=== PATIENT | female | born 1975 | race African-American/Black ===

== ENCOUNTER 2020-09-01 10:31 | Emergency (ER) | payer OTHER, SELFPAY ==
--- NOTE | ~2020-09-01 | CT_ITS ---
EXAMINATION: CT brain wo con DATE: 09/01/2020 11:47 INDICATION: Intractable headache. TECHNIQUE: Computed tomography (CT) of the head was performed without intravenous contrast. The mA wa s adjusted according to patient size. Iterative reconstruction technique was employed. The dose-lengt h product was 605.33 mGy-cm. COMPARISON: Head CT 07/25/2016 FINDINGS: There is no intracranial hemorrhage, acute infarction, or abnormal intracranial mass lesion . The ventricles are normal in size. The mastoid air cells are normal. The sphenoid sinus is hypoplas tic and partially opacified, which is chronic. IMPRESSION: 1. Normal brain. Reviewed, dictated and finalized at location [facility]. IMPRESSION: 1. Normal brain.
[2020-09-01 10:42] VITALS: BP 143/85; PULSE 92; RESP 14; TEMP 36.1; O2SAT 98
--- NOTE | 2020-09-01 10:47 | ED.HA ---
HPI - Headache General Chief Complaint: Headache Stated Complaint: Headache, earache Time Seen by Provider: 09/01/20 10:47 Source: patient Mode of arrival: ambulatory Limitations: no limitations History of Present Illness HPI Narrative: Patient is a 45-year-old female with a history of vertigo, cluster headache, migraine headache who presents for evaluation of intractable headache. Patient reports she has had right and left-sided cluster headaches over the past 48 to 72 hours, reports continued headache on the left forehead with radiation into the left ear. No tinnitus, no ear discharge. Patient was having some ear pain yesterday. She denies any chest pain, abdominal pain, does report some nausea without vomiting. No numbness or weakness. In the past patient has been on triptans without much improvement in her symptoms. She does take prophylactic magnesium but ran out of that 10 days ago and is wondering if that possibly has exacerbated her symptoms. She denies fever, chills, neck pain or neck rigidity. No rashes. No numbness, no weakness. In the past, patient was receiving Botox injections for severe, intractable migraines, followed with neurology at [facility]. Related Data Allergies Allergy/AdvReac Type Severity Reaction Status Date / Time lubricant Allergy Unknown BURNING Verified 09/01/20 10:31 SENSATION Review of Systems Review of Systems: Narrative: CONSTITUTIONAL: Denies fever, chills, or sweats. EYES: Denies visual changes, reports sensitivity to light ENT: Denies rhinorrhea, congestion, sore throat, or otalgia. CARDIOVASCULAR: Denies chest pain, palpitations, or edema. RESPIRATORY: Denies cough or dyspnea. GASTROINTESTINAL: Denies abdominal pain, reports nausea without vomiting GENITOURINARY: Denies dysuria or hematuria. SKIN: Denies rash or itching. MUSCULOSKELETAL: Denies back pain, joint pain, or myalgia. NEUROLOGIC: Reports headache, denies numbness, or weakness. PSYCHIATRIC: Denies anxiety or depression. [facility] Past Medical History Medical History (Updated 09/01/20 @ 13:10 by Yarely Cohen MD) Cluster headache Migraine headache Vertigo Surgical History Surgical History (Updated 09/01/20 @ 11:14 by Yarely Cohen MD) No pertinent past surgical history Social History Social History (Updated 09/01/20 @ 11:14 by Yarely Cohen MD) Smoking status: Never smoker Alcohol intake: never Substance use: never Gender identity (if verbalized by the patient): Female Exam Narrative: Exam Narrative: GENERAL: Awake, alert, conversant HEAD: Normocephalic, atraumatic. EYES: PERRLA and EOMI. ENT: Nares clear, no rhinorrhea or epistaxis. Mucous membranes moist. NECK: Supple. CHEST: No respiratory distress, breathing even and non labored HEART: Regular rate, sinus rhythm ABDOMEN:Non distended, non tender EXTREMITIES: Normal range of motion. No edema. SKIN: Warm, dry, no rash. NEURO:No focal deficits. Alert and oriented x3. Finger to nose intact bilaterally. EOMs intact without nystagmus. No facial droop/asymmetry noted bilaterally. Grimace intact. Intact sensation in face. Hearing intact bilaterally. Shoulder shrug intact. Strength 5/5 bilateral upper extremities. Strength 5/5 bilateral lower extremities. Reflexes 2+ patellar. Heel to fleming intact bilaterally. Ambulatory with a narrow based steady gait. Course Vital Signs Vital signs: Vital Signs Temperature 36.1 C L 09/01/20 10:42 Pulse Rate 92 09/01/20 10:42 Respiratory Rate 14 09/01/20 10:42 Blood Pressure 143/85 H 09/01/20 10:42 Pulse Oximetry 98 09/01/20 10:42 Temperature 36.1 C L 09/01/20 10:42 Pulse Rate 92 09/01/20 10:42 Respiratory Rate 14 09/01/20 10:42 Blood Pressure 143/85 H 09/01/20 10:42 Pulse Oximetry 98 09/01/20 10:42 MDM - Headache MDM Narrative Medical decision making narrative: The patient was evaluated in the emergency department for headache. At the time of asse
[2020-09-01] MEDS: METOCLOPRAMIDE HCL INJ 10 MG/2 ML VIAL IV PUSH (11:36)
[2020-09-01] MEDS: SODIUM CHLORIDE 0.9% IV 1,000 ML 999 ML IV CONT (11:36)
[2020-09-01] MEDS: MAGNESIUM SULF 2 GM/WATER 50ML 2 GM/50 ML BAG IVPB (11:36)
--- NOTE | 2020-09-01 11:45 | PC.NURSE ---
Pt to CT scan via stretcher.
[2020-09-01 13:10] VITALS: BP 130/92; PULSE 79; RESP 13; O2SAT 98
[2020-09-01 13:34] VITALS: BP 130/80; PULSE 80; RESP 18; TEMP 36.6; O2SAT 99
== END 2020-09-01 13:35 | disposition home or self-care (01) ==
PROVIDERS: Emergency Provider Emergency Medicine
DX: G43.909 Migraine, unspecified, not intractable, without status migrainosus (principal)
CPT/HCPCS: 70450; 96365; 96368; 96375; 99284; J0131; J1100; J2765; J3475; J7030

== ENCOUNTER 2022-04-01 10:11 | Emergency (ER) | payer OTHER, SELFPAY ==
--- NOTE | ~2022-04-01 | CT_ITS ---
EXAMINATION: CT abdomen pelvis wo con DATE: 04/01/2022 12:21 INDICATION: Right flank pain, back pain TECHNIQUE: Computed tomography (CT) of the abdomen and pelvis was performed without intravenous contr ast. Automated exposure control and iterative reconstruction technique were employed. Exam dose: 311 .32 mGy-cm total exam DLP. COMPARISON: None FINDINGS: The lung bases are clear. Normal heart size. No pericardial or pleural effusion. Occasional up to 1.4 cm hepatic hypoattenuating lesions, likely hepatic cysts. The gallbladder is unremarkable. No bile duct dilatation. Partially calcified septated approximately 2.3 cm cystic lesion of the spleen, likely benign. No sple nomegaly. No pancreatic mass lesion or calcification. No pancreatic or bile duct dilatation is evident. Normal morphology of the adrenal glands. No renal mass lesion or urinary tract calculus or hydroureteronephrosis. The urinary bladder, uterus and adnexal areas are unremarkable. Normal caliber of the abdominal aorta. No intraperitoneal or retroperitoneal or pelvic mass lesion or adenopathy or ascites. There is a prominent of fecal material throughout the rectum and colon. Normal appendix. No bowel obs truction, bowel wall thickening, pneumatosis or intraperitoneal free air. Very small fat-containing umbilical hernia. Severe degenerative disease and mild retrolisthesis at L5-S1. No suspicious osteolytic or osteoblasti c lesions are noted. IMPRESSION: Prominent amount of fecal material throughout the rectum and colon; no bowel obstruction is evident Normal appendix Hepatic cysts Likely benign 2.3 cm septated cystic splenic lesion with mild calcification Reviewed, dictated and finalized at [facility]. Reviewed, dictated and finalized at location B. IMPRESSION: Prominent amount of fecal material throughout the rectum and colon ; no bowel obstruction is evident Normal appendix Hepatic cysts Likely benign 2.3 cm septated cystic splenic lesion with mild calcification
[2022-04-01 10:19] VITALS: BP 144/94; PULSE 82; RESP 16; TEMP 36.3; O2SAT 100
[2022-04-01 10:40] LABS: Appearance Urine Clear (Clear); Bilirubin Urine Negative (Negative); Blood Urine Negative (Negative); Glucose Urine UA Negative (Negative); Ketones Urine Negative (Negative); Leukocyte Esterase Ur Negative LEU/UL (Negative); Nitrate Urine Negative (Negative); Protein Urine Negative (Negative); Specific Grav Ur 1.015 (1.001-1.035); Urobilinogen Urine 0.2 mg/dL (<2.0); pH Urine 7.5 (5.0-9.0)
[2022-04-01 10:42] LABS: Add Urine Microscopic? NO; Color Urine Other (Yellow)
[2022-04-01 11:15] VITALS: BP 144/94; PULSE 82; RESP 16; TEMP 36.3; O2SAT 100
--- NOTE | 2022-04-01 12:18 | PC.NURSE ---
Pt in CT at this time.
--- NOTE | 2022-04-01 12:27 | ED.BACK ---
HPI - Back Pain/Injury General Chief Complaint: Back Pain/Injury Stated Complaint: back pain Time Seen by Provider: 04/01/22 11:50 Source: patient Mode of arrival: ambulatory Limitations: no limitations History of Present Illness HPI Narrative: 47-year-old female presents with right flank pain since Tuesday. Patient states she was seen at [facility] yesterday and diagnosed with UTI and prescribed Macrobid. Patient states she was also having hematuria and dysuria. Patient states all symptoms have resolved but the right flank pain has increased. Patient denies any history of UTIs or kidney stones. Patient denies fevers. Patient denies chance of . MD elicited complaint: back pain Onset (ago): day(s) (3) Timing: constant Quality: sharp Location: right flank Exacerbating factors: none Relieving factors: none Associated symptoms: dysuria and hematuria Treatments prior to arrival: other medications (Macrobid) Work related injury: No Related Data Allergies Allergy/AdvReac Type Severity Reaction Status Date / Time lubricant Allergy Unknown BURNING Verified 04/01/22 11:17 SENSATION Review of Systems Review of Systems: All systems reviewed & are unremarkable except as noted in HPI and below Constitutional: Constitutional: Reports no additional constitutional complaints Eyes: Eyes: Reports no additional eye complaints ENT: Reports system reviewed and no additional complaints, except as documented Cardiovascular: Cardiovascular: Reports no additional cardiovascular complaints Respiratory: Respiratory: Reports no additional respiratory complaints Gastrointestinal: Gastrointestinal: Reports no additional gastrointestinal complaints Genitourinary: Genitourinary: Reports hematuria, Reports nocturia and Reports flank pain Musculoskeletal: Musculoskeletal: Reports no additional musculoskeletal complaints Integumentary/Breasts: Skin/Breast: Reports system reviewed and no additional complaints, except as docu Neurologic: Reports system reviewed and no additional complaints, except as documented Psychiatric: Psychiatric: Reports no additional psychiatric complaints Endocrine: Endocrine: Reports no additional endocrine complaints Hematologic/Lymphatic: Hematologic/Lymphatic: Reports no additional hematologic/lymphatic complaints Allergic/Immunologic: Allergic/Immunologic: Reports no additional allergic/immunologic complaints [facility] Past Medical History Medical History (Updated 04/01/22 @ 13:29 by Trey Doty APRN) Cluster headache Migraine headache Vertigo Surgical History Surgical History (Updated 09/01/20 @ 11:14 by Yarely Cohen MD) No pertinent past surgical history Social History Social History (Updated 09/01/20 @ 11:14 by Yarely Cohen MD) Smoking status: Never smoker Alcohol intake: never Substance use: never Gender identity (if verbalized by the patient): Female Exam Narrative: GENERAL: Well-appearing, well-nourished, and in no acute distress. HEAD: Normocephalic, atraumatic. EYES: PERRLA and EOMI. ENT: Nares clear, no rhinorrhea or epistaxis. Mucous membranes moist. NECK: Supple. CHEST: Clear to auscultation. No respiratory distress. HEART: Regular rate and rhythm. No murmur heard. Normal peripheral pulses. ABDOMEN: Soft, right upper quadrant and right lower quadrant tenderness, nondistended, normal active bowel sounds, right CVA tenderness, EXTREMITIES: Normal range of motion. No edema. SKIN: Warm, dry, no rash. NEURO: No focal deficits. Alert and oriented x3. PSYCH: Normal mood and affect. Course Course Emergency Course: Work-up is negative. Patient is pain-free after Toradol. Will discharge home with close follow-up with PCP. Patient notified of hepatic cyst and the need for follow-up. Patient verbalized understanding. Reevaluation(s) Date: 04/01/22 Time: 13:27 Vital Signs Vital signs: Vital Signs Temperature 36.3 C L 04/01/22 10:19 P
[2022-04-01] MEDS: KETOROLAC 30 MG/ML VIAL (*BKC) IV PUSH (12:41)
[2022-04-01] MEDS: SODIUM CHLORIDE 0.9% IV 1,000 ML 999 ML IV CONT (12:41)
[2022-04-01] MEDS: ONDANSETRON INJ 4 MG/2 ML VIAL IV PUSH (12:41)
[2022-04-01 13:03] LABS: Basophils Percent Auto 0.4 % (0.2-1.2); Eosinophils Absolute Auto 0.1 K/mm3 (0-0.3); Eosinophils Percent Auto 2.3 % (0-4.4); Hematocrit 39.1 % (37.0-47.0); Hemoglobin 12.2 g/dL (12.0-15.0); Immature Granulocyte Absolute 0.01 K/mm3 (0.00-0.031); Immature Granulocyte Percent A 0.2 % (0-0.5); Lymphocytes Absolute Auto 2.34 K/mm3 (0.9-3.2); Lymphocytes Percent Auto 45.4 % (18.3-44.2); Mean Corpuscular HGB Conc 31.2 g/dl (32-36); Mean Corpuscular Hemoglobin 29.4 pg (26-34); Mean Corpuscular Volume 94.2 fl (80-100); Mean Platelet Volume 9.5 fl (7.4-10.4); Monocytes Absolute Auto 0.3 K/mm3 (0.1-0.6); Monocytes Percent Auto 6.2 % (2.6-8.5); Neutrophils Absolute Auto 2.3 K/mm3 (1.3-6.7); Neutrophils Percent Auto 45.5 % (45.5-73.1); Platelet Count Result 262 k/mm3 (150-375); Red Blood Count 4.15 M/mm3 (4.2-5.4); Red Cell Distribution Width 12.3 % (11.5-14.5); White Blood Count 5.2 K/mm3 (4.5-10.0)
[2022-04-01 13:13] LABS: Alanine Aminotransferase 21 U/L (6-35); Albumin Level 4.1 g/dL (3.5-5.1); Alkaline Phosphatase 61 U/L (38-126); Anion Gap 2 mmol/L (8-16); Aspartate Amino Transferase 41 U/L (14-36); Bilirubin,Total 0.2 mg/dL (0.2-1.3); Blood Urea Nitrogen 11 mg/dL (7-17); Calcium 9.2 mg/dL (8.4-10.2); Carbon Dioxide 35 mmol/L (22-30); Chloride 102 mmol/L (98-107); Estimated CRCL calculation 93 ml/min; Estimated Glomerular Filt Rate > 60; Glucose 87 mg/dL (65-110); Lipase 170 U/L (23-300); Potassium 4.2 mmol/L (3.4-5.0); Sodium 139 mmol/L (137-145)
[2022-04-01 13:56] VITALS: BP 144/96; PULSE 63; RESP 17; O2SAT 100
== END 2022-04-01 13:45 | disposition home or self-care (01) ==
PROVIDERS: Emergency Medicine; Emergency Provider Nurse Practitioner Family
DX: Q44.6 Cystic disease of liver (principal); R10.9 Unspecified abdominal pain
CPT/HCPCS: 36415; 74176; 80053; 81001; 81003; 81025; 83690; 85025; 96361; 96374; 96375; 99284; J1885; J2405; J7030

== ENCOUNTER 2022-09-09 04:16 | Emergency (ER) | payer OTHER, SELFPAY ==
--- NOTE | ~2022-09-09 | XR_ITS ---
EXAMINATION: XR ankle RT 2V, XR foot RT min 3V DATE: 09/09/2022 06:11 INDICATION: Right foot pain TECHNIQUE: 1. Anteroposterior and lateral view of the right ankle were obtained. 2. Dorsoplantar, two oblique and lateral views of the right foot were obtained. COMPARISON: None. FINDINGS: Alignment of the right foot and ankle is normal. No fracture or osteochondral lesion. Mild osteoarthr itis at the first metatarsophalangeal and a few tarsometatarsal and interphalangeal joints. No cortic al erosions or periosteal reaction. No ankle joint effusion. The soft tissues are unremarkable. IMPRESSION: 1. 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 No acute osseous abnormality. Reviewed, dictated and finalized at location A. IMPRESSION: 1. 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 No acute oss eous abnormality.
[2022-09-09 04:22] VITALS: BP 128/91; PULSE 81; RESP 14; TEMP 36.7; O2SAT 98
--- NOTE | 2022-09-09 05:14 | ED.FALL ---
HPI - Fall General Chief Complaint: Fall Stated Complaint: right foot and knee injury after fall Time Seen by Provider: 09/09/22 04:59 History of Present Illness HPI Narrative: This is a 47-year-old female who denies past medical history, presenting to the emergency department complaining of right foot pain after a fall. The patient states she was walking when she tripped on an object on the floor, falling striking her right knee, right elbow and dorsum of the right foot. She describes the pain in the foot as 6 out of 10, worse with direct pressure or movement, improved with rest. She denies significant elbow or knee pain. She denies head trauma or loss of consciousness. She has no other complaints today Related Data Allergies Allergy/AdvReac Type Severity Reaction Status Date / Time lubricant AdvReac Unknown BURNING Verified 09/09/22 05:14 SENSATION Review of Systems Review of Systems: CONSTITUTIONAL: Denies fever, chills, or sweats. EYES: Denies visual changes, redness, or discharge. ENT: Denies rhinorrhea, congestion, sore throat, or otalgia. CARDIOVASCULAR: Denies chest pain, palpitations, or edema. RESPIRATORY: Denies cough or dyspnea. GASTROINTESTINAL: Denies abdominal pain, nausea, vomiting, or diarrhea. GENITOURINARY: Denies dysuria or hematuria. SKIN: Denies rash or itching. MUSCULOSKELETAL: Right foot pain denies back pain, or myalgia. NEUROLOGIC: Denies headache, numbness, dizziness, or weakness. PSYCHIATRIC: Denies anxiety or depression. PMFSH Past Medical History Medical History Cluster headache Migraine headache Vertigo Surgical History Surgical History No pertinent past surgical history Social History Social History Smoking status: Never smoker Alcohol intake: never Substance use: never Gender identity (if verbalized by the patient): Female Exam Narrative: GENERAL: Well-appearing, well-nourished, and in no acute distress. HEAD: Normocephalic, atraumatic. EYES: PERRLA and EOMI. ENT: Nares clear, no rhinorrhea or epistaxis. Mucous membranes moist. Oropharynx without tonsillar hypertrophy exudate or other lesions. NECK: Supple. No adenopathy or masses. No carotid bruits or JVD CHEST: Clear to auscultation. No respiratory distress. No wheezes rales or rhonchi HEART: Regular rate and rhythm. No murmur heard. Normal peripheral pulses. ABDOMEN: Soft, nontender, nondistended, normal active bowel sounds. EXTREMITIES: Tender to palpation over the dorsum of the right foot at the midfoot, tender with range of motion of the foot, sensation intact, no significant ecchymosis, swelling or crepitus noted, normal range of motion. No edema. SKIN: Warm, dry, no rash. NEURO: No focal deficits. Alert and oriented x3. PSYCH: Normal mood and affect. Course Course Emergency Course: 07:14 - X-rays not concerning for fracture or dislocation. Discussed findings with the patient including recommendations for RICE therapy. Discussed return emergency precautions including signs/symptoms of neurovascular compromise and septic arthritis. She voiced understanding is comfortable with the plan. All questions answered to the patient satisfaction. Vital Signs Vital signs: Vital Signs Temperature 98.1 F 09/09/22 04:22 Pulse Rate 81 09/09/22 04:22 Respiratory Rate 14 09/09/22 04:22 Blood Pressure 128/91 H 09/09/22 04:22 Pulse Oximetry 98 09/09/22 04:22 Oxygen Delivery Room Air 09/09/22 04:22 Temperature 98.1 F 09/09/22 04:22 Pulse Rate 81 09/09/22 04:22 Respiratory Rate 14 09/09/22 04:22 Blood Pressure 128/91 H 09/09/22 04:22 Pulse Oximetry 98 09/09/22 04:22 Oxygen Delivery Room Air 09/09/22 04:22 MDM - Fall MDM Narrative Medical decision making narrative: Plan: Imaging, pain control, reasses
[2022-09-09] MEDS: ACETAMINOPHEN 500 MG TABLET 1000 MG PO (05:21)
--- NOTE | 2022-09-09 07:05 | PC.NURSE ---
lauren wrap to rt ankle
== END 2022-09-09 07:28 | disposition home or self-care (01) ==
PROVIDERS: Emergency Provider Preventive Medicine Aerospace Medicine
DX: S93.601A Unspecified sprain of right foot, initial encounter (principal); W18.09XA Striking against other object with subsequent fall, initial encounter
CPT/HCPCS: 73600; 73630; 99283; A9270

== ENCOUNTER 2024-06-16 10:26 | Emergency (ER) | payer OTHER, SELFPAY ==
--- NOTE | 2024-06-16 10:31 | ED.URI ---
HPI - URI/Sore Throat General Chief Complaint: Upper Respiratory Infection Stated Complaint: HEADACHE/CHILLS Time Seen by Provider: 06/16/24 10:31 Source: patient and RN notes reviewed Mode of arrival: ambulatory Limitations: no limitations History of Present Illness HPI Narrative: 49-year-old female presents concern for headache, chills, decreased energy, ear itchiness that started yesterday. Reports she had to leave work because of her symptoms. She has not taken any [id number] medications, she has used tea with lemon. MD elicited complaint: other (headache, chills) Related Data Allergies Allergy/AdvReac Type Severity Reaction Status Date / Time lubricant AdvReac Unknown BURNING Verified 06/16/24 10:31 SENSATION Review of Systems Review of Systems: CONSTITUTIONAL: Reports malaise, chills, fatigue EYES: Denies visual changes, redness, or discharge. ENT: Reports rhinorrhea, congestion, otalgia CARDIOVASCULAR: Denies chest pain, palpitations, or edema. RESPIRATORY: Denies cough. Denies dyspnea. GASTROINTESTINAL: Denies abdominal pain, nausea, vomiting, diarrhea SKIN: Denies rash or itching. MUSCULOSKELETAL: Denies myalgia. NEUROLOGIC: Reports headache. All systems reviewed & are unremarkable except as noted in HPI and below PMFSH Past Medical History Medical History Cluster headache Migraine headache Vertigo Surgical History Surgical History No pertinent past surgical history Social History Social History Smoking status: Never smoker Alcohol intake: never Substance use: never Gender identity (if verbalized by the patient): Female Comments At time of signature, agree with nursing past medical, surgical, social and family history. There is no relevant family history pertinent to the presenting complaint Exam Narrative: GENERAL: Mild toxic-appearing, well-nourished, and in no acute distress. HEAD: Normocephalic EYES: PERRLA, conjunctivae clear ENT: Nares clear, clear discharge. Mucous membranes moist. TM pearly valle with dull light reflex bilaterally; no tragal tenderness. Oropharynx not erythematous without lesions. Tonsils not enlarged and without exudate, no drooling, no hoarseness, no trismus, uvula midline. NECK: Supple. No lymphadenopathy CHEST: Clear to auscultation, breath sounds equal. No wheezing, rhonchi, rales, or stridor. No respiratory distress, speaks in full sentences. HEART: Regular rate and rhythm. No murmur heard. SKIN: Warm, dry, no rash. NEURO: Alert and oriented x3. PSYCH: Normal mood and affect Course Course Emergency Course: Patient is aware of diagnosis, understands and agrees to treatment plan. Anticipatory guidance given. Patient agrees to follow-up as directed and is aware of reasons to seek care at the emergency department. Portions of this record may have been created with voice recognition software Level of Care: Express Care Visit Vital Signs Vital signs: Reviewed. MDM - URI/Sore Throat MDM Narrative Medical decision making narrative: Differential diagnosis considered: Patrick virus, strep pharyngitis, allergic rhinitis, upper respiratory tract infection, sinusitis, rhinosinusitis, nasopharyngitis. viral pharyngitis, otitis media, otitis externa, pneumonia, bronchitis, viral cough syndrome, viral syndrome, and influenza. Exam findings show no acute concerns or changes; patient is non-toxic appearing and is in no distress. Patient is appropriate for outpatient treatment and follow-up. Lab Data Attestation: I reviewed the patient's lab results. Critical Care Time Critical Care Time Critical Care Time: No Discharge Plan Discharge Clinical Impression: Viral infection Patient Disposition: Home, Self-Care Condition: Stable Instructions: Viral Syndrome (ED) Ad
[2024-06-16 10:39] VITALS: BP 133/98; PULSE 79; RESP 16; TEMP 36.2; O2SAT 100
== END 2024-06-16 11:04 | disposition home or self-care (01) ==
PROVIDERS: Emergency Provider Nurse Practitioner
DX: B34.9 Viral infection, unspecified (principal); Z20.822 Contact with and (suspected) exposure to COVID-19
CPT/HCPCS: 87426; 99213; G0463

== ENCOUNTER 2024-11-07 09:40 | Emergency (ER) | payer OTHER, SELFPAY ==
--- NOTE | ~2024-11-07 | XR_ITS ---
XR chest 2V Ordering provider: Surjit Alicia MD History: 49 years Female with . chest pain . Comparison: None. FINDINGS: MEDIASTINUM: The cardiac silhouette is not enlarged. LUNGS: No infiltrates, effusions or pneumothorax. OTHER: No free air under the diaphragm. IMPRESSION: No acute cardiopulmonary pathology. Reviewed, dictated and finalized at location A. FORMING MACHINE FEEDER
--- NOTE | 2024-11-07 09:42 | ECG_ITS ---
Test Date: 2024-11-07 09:47:22 Measurements Intervals Reynolds Rate: 66 P: 55 MI: 168 QRS: 62 QRSD: 93 T: 51 QT: 362 QTc: 379 Interpretive Statements SINUS RHYTHM POSSIBLE RIGHT VENTRICULAR CONDUCTION DELAY [RSR (QR) IN V1/V2] WARNING: DATA QUALITY MAY AFFECT INTERPRETATION No previous ECG available for comparison Electronically Signed On 11-07-2024 14:43:53 MICA LAYER by Eliseo Wolfe M.D.
[2024-11-07 09:45] VITALS: BP 180/92; PULSE 88; RESP 17; TEMP 36.6; O2SAT 99
[2024-11-07] MEDS: ASPIRIN 81 MG CHEWABLE TABLET 324 MG PO (09:56)
[2024-11-07 09:58] LABS: Basophils Percent Auto 0.4 % (0.2-1.2); Eosinophils Percent Auto 0.8 % (0-4.4); Hematocrit 40.9 % (37.0-47.0); Hemoglobin 12.9 g/dL (12.0-15.0); Immature Granulocyte Absolute 0.01 K/mm3 (0.00-0.031); Immature Granulocyte Percent A 0.2 % (0-0.5); Lymphocytes Absolute Auto 2.07 K/mm3 (0.9-3.2); Lymphocytes Percent Auto 39.7 % (18.3-44.2); Mean Corpuscular HGB Conc 31.5 g/dl (32-36); Mean Corpuscular Hemoglobin 29.1 pg (26-34); Mean Corpuscular Volume 92.3 fl (80-100); Mean Platelet Volume 9.2 fl (7.4-10.4); Monocytes Absolute Auto 0.2 K/mm3 (0.1-0.6); Neutrophils Absolute Auto 2.9 K/mm3 (1.3-6.7); Neutrophils Percent Auto 54.9 % (45.5-73.1); Platelet Count Result 281 k/mm3 (150-375); Red Blood Count 4.43 M/mm3 (4.2-5.4); Red Cell Distribution Width 12.5 % (11.5-14.5); White Blood Count 5.2 K/mm3 (4.5-10.0)
[2024-11-07 10:08] LABS: Alanine Aminotransferase 13 U/L (6-35); Albumin Level 4.4 g/dL (3.5-5.1); Alkaline Phosphatase 66 U/L (38-126); Anion Gap 2 mmol/L (4-12); Aspartate Amino Transferase 26 U/L (14-36); Bilirubin,Total 0.5 mg/dL (0.2-1.3); Blood Urea Nitrogen 15 mg/dL (7-17); Calcium 9.9 mg/dL (8.4-10.2); Carbon Dioxide 31 mmol/L (22-30); Chloride 107 mmol/L (98-107); Estimated CRCL calculation 95 ml/min; Estimated Glomerular Filt Rate > 60; Glucose 78 mg/dL (65-110); Lipase 161 U/L (23-300); Potassium 3.9 mmol/L (3.4-5.0); Sodium 140 mmol/L (137-145)
--- NOTE | 2024-11-07 10:08 | ED_ITS ---
HPI - Chest Pain General Chief Complaint: Chest Pain Stated Complaint: chest pain Time Seen by Provider: 11/07/24 09:51 History of Present Illness HPI narrative: 49-year-old female with history of migraines presents to emergency department for chest pain intermittently for 1 week. Patient states to the chest pain became more frequent so she came to the ED for further evaluation. She is reporting pain to the left anterior aspect of her chest that is sharp in nature and waxes and wanes. She cannot identify any aggravating or alleviating factors other than stress. States her was recently hospitalized for nausea vomiting and that has caused increased stress. She denies shortness of breath, lower extremity edema, palpitations, cough or congestion, mopped assist, history of VTE, recent surgeries or hospitalizations. She states this pain has happened several times in the past but normally does not last as long or as frequent. she denies personal or family cardiac history or CVA. She does not smoke. Related Data Allergies Allergy/AdvReac Type Severity Reaction Status Date / Time lubricant AdvReac Unknown BURNING Verified 11/07/24 09:52 SENSATION Review of Systems 2 Review of Systems: All systems reviewed & are unremarkable except as noted in HPI and below PMFSH Past Medical History Medical History Vertigo Cluster headache Migraine headache Surgical History Surgical History No pertinent past surgical history Social History Social History Smoking status: Never smoker Alcohol intake: never Substance use: never Gender identity (if verbalized by the patient): Female Exam 2 Narrative: GENERAL: Well-appearing, well-nourished, and in no acute distress. HEAD: Normocephalic, atraumatic. EYES: PERRLA and EOMI. ENT: Nares clear, no rhinorrhea or epistaxis. Mucous membranes moist. NECK: Supple. CHEST: Clear to auscultation. No respiratory distress.Tenderness to the left costosternal border HEART: Regular rate and rhythm. No murmur heard. Normal peripheral pulses. ABDOMEN: Soft, nontender, nondistended, normal active bowel sounds. EXTREMITIES: Normal range of motion. No edema. negative Homans bilaterally SKIN: Warm, dry, no rash. NEURO: No focal deficits. Alert and oriented x3 Course Vital Signs Vital signs: Vital Signs Temperature 97.8 F 11/07/24 09:45 Pulse Rate 88 11/07/24 09:45 Respiratory Rate 17 11/07/24 09:45 Blood Pressure 180/92 H 11/07/24 09:45 Pulse Oximetry 99 11/07/24 09:45 Oxygen Delivery Room Air 11/07/24 09:45 Temperature 97.8 F 11/07/24 09:45 Pulse Rate 60 11/07/24 11:55 Respiratory Rate 18 11/07/24 11:55 Blood Pressure 151/88 H 11/07/24 11:55 Pulse Oximetry 100 11/07/24 11:55 Oxygen Delivery Room Air 11/07/24 09:50 MDM - Chest Pain MDM Narrative Medical decision making narrative: 49-year-old female with no past medical history presents to the emergency department for intermittent chest pain for 1 week, worsening today. Triage vitals with hypertension of 180/92, otherwise unremarkable. Blood pressure has improved without intervention 140/90 upon my evaluation. Patient is resting comfortably in exam bed. Her exam is significant for tenderness to the left costosternal border and chest wall. EKG shows sinus rhythm with a rate of 66 ppm, normal DE interval, normal QRS duration, normal QTC, no ischemic changes. Troponin is undetectable x2. CBC and chemistries are unremarkable. Lipase is normal. D-dimer less than 0.27, wells score is low risk. Patient updated on workup. I suspect symptoms are related to stress / anxiety versus costochondritis as symptoms are atypical in nature. Will provide ibuprofen to the pharmacy for costochondritis and Cardiology follow-up for outpatient stress test. Discussed return precautions. She is agreeable with the plan verbalized understanding. Discharged in stable condition. Lab Data 11/07/24 09:51 11/07/24 09:51 Labs: Lab Results 11/07/24 11/07/24 11/07/24 Range/Units 09:51 10:11 13:00 WBC 5.2 (4.5-10.0) K/mm3 RBC 4.43 (4.2-5.4) M/mm3 Hgb 12.9 (12.0-15.0) g/dL Hct 40.9 (37.0-47.0) % MCV 92.3 (80-100) fl MCH 29.1 (26-34) pg MCHC 31.5 L (32-36) g/dl RDW 12.5 (11.5-14.5) % Plt Count 281 (150-375) k/mm3 MPV 9.2 (7.4-10.4) fl Immature Gran % (Auto) 0.2 (0-0.5) % Neut % (Auto) 54.9 (45.5-73.1) % Lymph % (Auto) 39.7 (18.3-44.2) % [place] % (Auto) 4.0 (2.6-8.5) % Eos % (Auto) 0.8 (0-4.4) % Baso % (Auto) 0.4 (0.2-1.2) % Lymph # (Auto) 2.07 (0.9-3.2) K/mm3 [place] # (Auto) 0.2 (0.1-0.6) K/mm3 Eos # (Auto) 0.0 (0-0.3) K/mm3 Baso # (Auto) 0.0 (0.0-0.1) K/mm3 Abs Immat Gran (auto) 0.01 (0.00-0.031) K/mm3 Absolute Neuts (auto) 2.9 (1.3-6.7) K/mm3 Absolute Nucleated RBC 0.000 (0.0-0.012) K/mm3 Nucleated RBC % 0.0 (0.0-0.2) % PT 13.4 (11.1-14.7) Seconds INR 1.0 APTT 27.4 (22.3-36.8) Seconds D-Dimer < 0.27 (<0.48) ug/mL Sodium 140 (137-145) mmol/L Potassium 3.9 (3.4-5.0) mmol/L Chloride 107 (98-107) mmol/L Carbon Dioxide 31 H (22-30) mmol/L Anion Gap 2 L (4-12) mmol/L BUN 15 (7-17) mg/dL Creatinine 0.60 L (0.7-1.0) mg/dL Estim Creat Clear Calc 95 ml/min Estimated GFR > 60 (59 - ) Glucose 78 (65-110) mg/dL Calcium 9.9 (8.4-10.2) mg/dL Total Bilirubin 0.5 (0.2-1.3) mg/dL AST 26 (14-36) U/L ALT 13 (6-35) U/L Alkaline Phosphatase 66 (38-126) U/L Troponin I < 0.012 < 0.012 (0.000-0.034) ng/mL Total Protein 8.0 (6.3-8.2) g/dL Albumin 4.4 (3.5-5.1) g/dL Lipase 161 (23-300) U/L Discharge Plan Discharge Clinical Impression: Atypical chest pain, Costochondritis Patient Disposition: Home, Self-Care Condition: Stable Instructions: Antibiotic Form, Chest Pain (ED), Costochondritis (ED) Additional Instructions: Follow up with tool clerk. Return to the emergency department if you develop changing or worsening chest pain, shortness of breath or other concerning symptoms. Patient Language: Irish Prescriptions: New ibuprofen 800 mg tablet 800 mg PO TID PRN (Reason: pain) Qty: 20 0RF No Action pseudoephedrine HCl [12 Hour Decongestant] 120 mg tablet extended release 120 mg PO Q12H PRN (Reason: nasal congestion) Qty: 20 0RF Follow-up/Referrals: Eliseo Wolfe MD [Physician] - [facility], [Primary Care Provider] - Quality HEART score for chest pain patients History: slightly suspicious ECG: normal Age: > 45 and < 65 years Risk factors: no risk factors known Troponin: < or = to 1x normal limit Heart score: 1
[2024-11-07 10:19] LABS: Troponin I < 0.012 ng/mL (0.000-0.034)
[2024-11-07] MEDS: KETOROLAC 15 MG/ML VIAL (*BKC) IV PUSH (10:27)
[2024-11-07 10:31] LABS: Prothrombin Time 13.4 Seconds (11.1-14.7)
[2024-11-07 10:32] LABS: Partial Thromboplastin Time 27.4 Seconds (22.3-36.8)
[2024-11-07 11:12] LABS: D Dimer < 0.27 ug/mL (<0.48)
[2024-11-07 11:55] VITALS: BP 151/88; PULSE 60; RESP 18; O2SAT 100
--- NOTE | 2024-11-07 12:42 | ECG_ITS ---
Test Date: 2024-11-07 12:38:48 Measurements Intervals [place] Rate: 62 P: 34 MT: 176 QRS: 52 QRSD: 92 T: 39 QT: 382 QTc: 388 Interpretive Statements SINUS RHYTHM POSSIBLE RIGHT VENTRICULAR CONDUCTION DELAY [RSR (QR) IN V1/V2] Compared to ECG 11/07/2024 09:47:22 No significant changes Electronically Signed On 11-07-2024 14:46:50 FRONT OFFICE MANAGER by Eliseo Wolfe M.D.
[2024-11-07 13:26] LABS: Troponin I < 0.012 ng/mL (0.000-0.034)
[2024-11-07 13:51] VITALS: BP 152/93; PULSE 60; RESP 16; O2SAT 99
--- OUTSIDE RECORDS SUMMARY | 2024-11-16 09:51 | XMS_ITS | Continuity of Care Document ---
Author Organization [place] [employer] [facility], [facility] Address [address] [place] [address] Care Team Providers Care Lean Specialist Name Role Phone Unavailable Primary Care Provider Unavailable Referring Provider [phone] Assessment Encounter Date Assessment Date Assessment LastModified by Organization Details LastModified Time 10/31/2024 10/31/2024 HPI: 49 year old female who presents today for evaluation of right hip that has been going on for almost year. This is a result of unclear etiology, denies any recent injury. She tripped over and object in February and notes her legs have given out twice in the last 6 months. Locates pain to the anterior thigh. Reports pain today as 8/10. Pain is no radiating. Pain is aggravated by walking. She has tried physical therapy and massage therapy with good relief. Last PT session was in February for 1 month. PCP gave her meloxicam which has provided minimal relief. Denies any numbness or tingling. 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 ROS: Per patient questionnaire Physical Exam: General: Normal appearance. No acute distress. Inspection: No evidence of swelling, erythema, bruising or deformity. Palpation: Tenderness to palpation over ASIS and greater trochanter. More significant over the greater trochanter ROM: Normal ROM Gait: Antalgic Gait Special Test: Negative Kailyn, Negative SAMIR and FADIR, No pain with passive adduction with resisted abduction. Motor: 5/5 strength in all other planes. Sensation: Upper extremity sensation intact. Imaging: Patient brought in xray done on 10/22. Reviewed xray. Moderate degenerative changes, joint space narrowing with subchondral sclerosis, and small osteophyte. Assessment & Plan: We will continue with conservative management. ? ? Ordered physical therapy. She had good relief with this last time. ? ? Prescribed ibuprofen for pain. Meloxicam provided no relief. ? ? Ice to help with inflammation. Follow Up: In 6-8 weeks after PT. If no improvement we can consider an injection. All questions were answered. Patient verbalized understanding of treatment plan estephania Not available 10/31/2024 11:33:45 Plan of Treatment Reminders Order Date Submit Date Provider Last Modified By Organization Details Last Modified Time Details Appointments Any 5 2024 03:00P Angelo Gamboa MD Not available Not available Not available Lab None recorded. Referral physical therapist referral - Please contact pt to schedule for R hip 2023 [facility], [address], [facility] [address], [place], [address], 10/31/2024 12:43:17 Procedures None recorded. Surgeries None recorded. Imaging None recorded. Medication Orders ibuprofen 400 mg tablet 2023 [email or web address], [address] [place] [address], [id number], 10/31/2024 11:26:47 Patient TargetsNo targets recorded. Patient InstructionsNo instructions recorded. Reason for Referral Physical Therapist Referral for Pain in right hip joint R hip Please contact pt to schedule for R hip Referring Physician: Kami Britt, Orthopedic Surgery, Encounter Date: 10/31/2024 Problems Name Problem SNOMED Code Status Onset Date Resolution Date Notes Provider Name and Address Organization Details Recorded Time Pain in right hip joint 291431604067299 Active 2023 TRINO Peralta, [place] [facility] 09:46:03 Problem Notes None recorded. Medical Equipment None Reported. Allergies No known drug allergies Medications Name Sig Start Date Stop Date Status Note LastModified by Organization Details LastModified Time meloxicam 15 mg tablet active Not Available Not Available Not Available sulfamethox azole 800 mg-trimetho prim 160 mg tablet 10/31 completed Not Available Not Available Not Available phenazopyri dine 100 mg tablet 10/31 completed Not Available Not Available Not Available ibuprofen 400 mg tablet Take 1 tablet three times a day with food active Not Available Not Available No t Available Vitamin D3 50 mcg (2,000 unit) capsule Take 1 capsule every day by oral route. active Not Available Not Available No t Available [facility] 120 mg tablet,exte nded release TAKE 1 TABLET BY MOUTH EVERY 12 HOURS NEEDED FOR NASAL CONGESTIO N 10/31 completed Not Available Not Available Not Available magnesium 400 mg (as magnesium aspartate,c itrate,oxid e) capsule Take 1 capsule every day by oral route. active Not Available Not Available No t Available Vitals Date Recorded Body height Body mass index (BMI) Body weight Provider Name and Address Organization Details Last Updated DateTime 10/31/2024 172.72 cm 22 kg/m2 57267.89 g Kelley Jones CNA [facility] [email or web address] 10/31/2024 09:41:42 Social History Question Answer Notes LastModified by Organizat ion Details LastModified Time Tobacco Smoking Status Never Smoker TRINO Peralta [facility] 10/31/2024 09:45:15 What Is Your Level Of Alcohol Consumption? None [email or web address] Information not available 10/31/2024 Sex: Unknown Functional Status None recorded. Mental Status None recorded. Family History Relationship Description Onset Age of this Age Resolved Age Notes LastModified by Organization Details LastModified Time Maternal Grandmother Malignant tumor of breast [email or web address] Not available 2023 09:44:37 Father Hypertensive disorder [email or web address] Not available 2023 09:44:49 Father Diabetes mellitus [email or web address] Not available 2023 09:45:03 Medical History No medical history recorded. Gynecological HistoryNo gynecological history recorded. Obstetrics History GPAL:G 0 P 0 0 0 0 Past Encounters Encounter ID Performer Location Encounter Start Date Encounter Closed Date Diagnosis/Indication Diagnosis SNOMED-CT Code Diagnosis ICD10 Code [id number] Kami Britt PA-C [facility] [address] [place] [address] 10/31/2024 09:13:08 10/31/2024 10:19:08 Pain in right hip joint [id number] 74979 M25.551 Health Concerns Section Related Observation LastModified by Organization Abdulaziz llanos LastModified Time None Recorded Concern Status LastModified by Organization Details LastModified Time None Recorded Payers Encounter Date Sequence Insurance Name Policy Number Policy Ahuja Covered Member ID Ahuja Member ID Guarantor Name 10/31/2024 1 [place] - DOS PRIOR TO 2024 - HUMANA () Osman Aguilar [id number] Osman Aguilar OBGyn Episode No OBEpisode recorded.
--- OUTSIDE RECORDS SUMMARY | 2024-11-16 09:51 | XMS_ITS | Data Portability ---
Author Organization [place], Main Office Address [address] [place] [address] Care Team Providers Care Shotgun Shell Assembly Machine Operator Name Role Phone Unavailable Primary Care Provider [phone] Unavailable Referring Provider [phone] Assessment Encounter Date Assessment Date Assessment LastModified [...] any numbness or tingling. 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 Surgeries None recorded. Imaging None recorded. Medication Orders ibuprofen 400 mg tablet 2023 [email or web address], [address] [place] [address], [id number], 10/31/2024 11:26:47 Patient TargetsNo targets recorded. Patient [...] Recorded Time Pain in right hip joint [id number] Active 2023 Kelley Jones CNA null, [place] [employer] [facility] 09:46:03 Problem Notes None recorded. Medical Equipment [...] Updated DateTime 10/31/2024 172.72 cm 22 kg/m2 50198.89 g Kelley Jones CNA [facility] [employer] [facility] 10/31/2024 09:41:42 Social History Question Answer Notes LastModified by Organizat ion Details LastModified Time Tobacco Smoking Status Never Smoker ANNIE PeraltaSean choi [facility] 10/31/2024 09:45:15 What Is Your Level Of [...] Diagnosis/Indication Diagnosis SNOMED-CT Code Diagnosis ICD10 Code [id number] Kami Britt PA-C [facility] [address] [place] [address] 10/31/2024 09:13:08 10/31/2024 10:19:08 Pain in right hip joint [id number] M25.551 Health Concerns Section Related Observation LastModified by Organization Detai ls LastModified Time None Recorded Concern Status LastModified by Organization Details LastModified Time None Recorded Advance Directives Directive None Recorded Payers Encounter Date Sequence Insurance Name Policy Number Policy Ahuja Covered Member ID Ahuja Member ID Guarantor Name 10/31/2024 1 [employer] - DOS PRIOR TO 2024 - [employer] () Osman Aguilar [id number] Osman Aguilar OBGyn Episode No OBEpisode recorded.
--- OUTSIDE RECORDS SUMMARY | 2024-11-16 09:52 | XMS_ITS | Continuity of Care Document ---
Author Name [facility] Organization [facility] Care Team Providers Care Optometrist Owner Name Role Phone [facility] Unavailable Unavailable Problems Combined list of problems from Department of Defense and Veterans Affairs facilities. It does not include entries that were removed or entered in error. Problem Status Onset Date Problem Type Date of Resolution Comments Source Chest pain Active 11/08/20 24 Diagnosis [facility] Pain in right leg Active 10/22/20 24 Diagnosis [facility] Furuncle of left upper limb Active 06/08/20 19 Condition DoD Encounter for other specified special examinations Active 05/07/20 19 Condition [facility] Migraine, unspecified, not intractable, with status migrainosus Active 04/20/20 17 Condition DoD Genuine stress incontinence Active Condition [facility] Migraine Active Condition [facility] Vitamin D deficiency Active Condition [facility]ulatory [facility] Unspecified disorder of vestibular function, unspecified ear Active Condition DoD Encounter for issue of repeat prescription Active Condition DoD Encounter for other administrative examinations Active Condition DoD Tinea unguium Active Condition DoD Nail Discoloration Inactive Condition Do D dermatophytosis tinea capitis Inactive Condition DoD visit for: issue repeat prescription Inactive Condition DoD cystitis Inactive Condition [facility] Outpatient Physician Consultation Active Condition DoD vitamin D deficiency Active Condition DoD chest pain or discomfort Active Condition DoD cervical polyps Active Condition [facility] visit for: issue repeat prescription for medication Inactive Condition DoD closed fracture phalanges right first toe Inactive Condition DoD routine history and physical Inactive Condition DoD pain during urination (dysuria) Active Condition DoD urinary incontinence Active Condition DoD stress incontinence Active Condition Do D routine history and physical adult (18 - 64 yrs) Active Condition DoD routine history and physical Active Condition DoD routine checkup - third trimester (at ___ Weeks) Inactive Condition DoD 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 DoD insufficient uterine enlargement for dates of Active Condition DoD elderly multigravida - antepartum condition or complication Active Condition DoD Supervision Of Normal Inactive Condition DoD Inactive Condition DoD Patient Education Dietary Active Condition DoD Patient Counseling: Active Condition Do D Supervision Of Normal First Inactive Condition DoD elderly multigravida (35 or older at delivery) Active Condition DoD Test Positive Inactive Condition DoD dermatophytosis tinea cruris perianal area Active Condition DoD nonspecific abnormal findings Active Condition DoD visit for: follow-up exam Active Condition DoD visit for: screening exam Active Condition DoD visit for: screening exam pulmonary tuberculosis Active Condition DoD Family history of other cardiovascular diseases Inactive Condition DoD Gynecologic Services Contraceptive Management Inactive Condition Ortho tri Cyclen ordered in [facility] DoD visit for: screening exam for malignant neoplasm cervix Inactive Condition DoD migraine headache Active Condition DoD Vaccines Prophylactic Need Inactive Condition DoD visit for: refer patient without exam or treatment Inactive Condition DoD closed fracture left 2nd toe proximal phalanx Active Condition DoD fracture of metatarsal bone(s) Active Condition DoD injury of lower extremity toes Active Condition LT 2nd toe DoD visit for: routine eye exam Inactive Condition DoD refractive error - myopia Active Condition [facility] visit for: contraceptive surveillance Active Condition f/u for routine pap in May 26 DoD urinary tract infection Inactive Condition [facility] visit for: administrative purpose Inactive Condition [facility] routine pre-employment screening examination Active Condition Pt advised to return next week for PPD placement. Follow-up to clinic annually or prn. DoD routine gynecological exam with cervical pap smear Inactive Condition DoD Medications Combined list of outpatient medications from Department of Defense and Veterans Affairs facilities.Medications provided include 1) outpatient medications from the last 15 months, and 2) patient-reported medications. Medication Details Route Status Patient Instructions Prescription Expires Prescription Number Last Dispense Date Ordering Provider Order Date Order Qty Source diclofenac 1% topical gel USE DOSING CARD TO APPLY 2 TO 4 GRAMS TO AFFECTED AREAS FOUR TIMES A DAY DIRECTED , # 100 g, 1 total refill(s ), Acute Discont inued 12/14/2023 100.0 Ambulat ory Pharmac y kathy 0 total refill(s ), Maintena nce Ordered [facility]55C[facility] ibuprofen 400 mg tablet See Instruct ions, # 90 EA, 0 total refill(s ), Hard Stop Ordered 12/01/2024 90.0 Ambul at ory Pharmac y magnesium (as chloride) 64mg with calcium (as carbonate) oral delayed release tablet 2 tab(s), Oral, Daily, # 60 tab(s), 0 total refill(s ), Maintena nce Oral (given by mouth) Ordered 60.0 [facility]55C[facility] meloxicam 10 mg oral capsule 1 cap(s), Oral, Daily, # 30 cap(s), 0 total refill(s ), Maintena nce, 1 cap(s) Oral Daily, Pharmacy : [facility] Oral (given by mouth) Discont inued 10/22/2024 30.0 [facility]55[facility] Amaya meloxicam 15 mg oral tablet 1 tab(s), Oral, Daily, # 30 tab(s), 0 total refill(s ), Maintena nce, 1 tab(s) Oral Daily, Pharmacy : [facility] Oral (given by mouth) Or[facility] 30.0 [facility] phenazopyri dine 100 mg tablet See Instruct ions, Oral, # 12 EA, 0 total refill(s ), Hard Stop Oral (given by mouth) Complet ed 09/29/2024 12.0 Ambulat ory Pharmac y sulfamethox azole-trime thoprim 800 mg-160 mg tablet See Instruct ions, Oral, # 10 EA, 0 total refill(s ), Hard Stop Oral (given by mouth) Complet ed 10/02/2024 10.0 Ambulat ory Pharmac y turmeric Oral, Daily, 0 total refill(s ), Maintena nce Oral (given by mouth) Ordered 0055C[facility] Vitamin C Daily, 0 total refill(s ), Maintena nce Ordered 0055C[facility] Vitamin D with Minerals oral tablet Oral, Daily, 0 total refill(s ), Maintena nce Oral (given by mouth) Ordered 0055C[facility]aya Allergies, Adverse Reactions, Alerts Combined list of allergies from Department of Defense and Veterans Affairs facilities. It does not include entries that were removed or entered in error. Substance Category Reaction Severity Reaction type Status Date Reported Comments Source No Known Allergies Drug allergy (disorder) active 05/17/2012 [facility] ALMENDAREZ ([facility] Immunizations Combined list of available immunizations from the Department of Defense and Veterans Affairs facilities. Immunization Series Date Given Administered By Site Reaction Lot Number CVX Code Drug Ham Sawyer Status Comments Source tuberculin purified protein derivative 2020 zzLef t Arm [id number] 96 sanofi pasteur complet ed Patient Tolerance : Negative Ambulat ory Pharmac y tuberculin skin test; purified protein derivative solution, intradermal 1 2020 Unknown, Provider [id number] 96 Sanofi Pasteur (PMC) complet ed tuberculi n skin test; purified protein derivativ e solution, intraderm al DoD tuberculin purified protein derivative 2018 zzLef t Arm [id number] 96 sanofi pasteur complet ed Patient Tolerance : Negative Ambulat ory Pharmac y tuberculin skin test; purified protein derivative solution, intradermal 1 2018 Unknown, Provider [id number] 96 Sanofi Pasteur (PMC) complet ed tuberculi n skin test; purified protein derivativ e solution, intraderm al DoD tuberculin purified protein derivative 2015 zzLef t Arm [id number] 96 sanofi pasteur complet ed Patient Tolerance : Negative Ambulat ory Pharmac y tuberculin skin test; purified protein derivative solution, intradermal 1 2015 Unknown, Provider [id number] 96 Sanofi Pasteur (PMC) complet ed tuberculi n skin test; purified protein derivativ e solution, intraderm al DoD tetanus, diphtheria, acellular pertu is 2015 zzLef t Arm [id number] 115 GlaxoSmithKli ne complet ed tetanus, diphtheri a, acellular pertussis 08/05/16 Given Ambulat ory Pharmac y tetanus toxoid, reduced diphtheria toxoid, and acellular pertu is vaccine, adsorbed 1 2015 Unknown, Provider [id number] [facility] complet ed tetanus toxoid, reduced diphtheri a toxoid, and acellular pertussis vaccine, adsorbed DoD hepatitis A adult vaccine 2015 zzYenifer Arm [id number] 52 GlaxoSmithKli ne complet ed hepatitis A adult vaccine 12/10/15 Given Ambulat ory Pharmac y hepatitis A vaccine, adult dosage 1 2015 Unknown, Provider [id number] [facility] ([facility]) complet ed hepatitis A vaccine, adult dosage DoD influenza, injectable, quadrivalent 2014 zzYenifer ht Arm [id number] 158 [employer] complet ed influenza , injectabl e, quadrival ent 09/11/15 Given Ambulat ory Pharmac y influenza, injectable, quadrivalent, contains preservative 1 2014 Unknown, Provider [id number] (IDB) complet ed influenza , injectabl e, quadrival ent, contains preservat mary DoD influenza, seasonal, injectable-pf 2014 zzLef t Arm [id number] CSL Behring complet ed influenza , seasonal, injectabl e-pf 03/19/15 Given Ambulat ory Pharmac y hepatitis A adult vaccine 2014 zzRig ht Arm [id number] 52 GlaxoSmithKli ne complet ed hepatitis A adult vaccine 03/19/15 Given Ambulat ory Pharmac y hepatitis A vaccine, adult dosage 1 2014 Unknown, Provider [id number] [employer] (SKB) complet ed hepatitis A vaccine, adult dosage DoD Influenza, seasonal, injectable, preservative free 1 2014 Unknown, Provider [id number] 140 [employer] (CSL) complet ed Influenza , seasonal, injectabl e, preservat mary free DoD influenza virus vaccine, live 2011 [id number] [employer] comple t ed influenza virus vaccine, live 08/25/12 Given Ambulat ory Pharmac y influenza virus vaccine, live, attenuated, for intranasal use 1 2011 Unknown, Provider [id number] [employer] (MED) complet ed influenza virus vaccine, live, attenuate d, for intranasa l use DoD tuberculin purified protein derivative 2009 zzLef t Arm [id number] 96 sanofi pasteur complet ed Patient Tolerance : Negative Ambulat ory Pharmac y tuberculin skin test; purified protein derivative solution, intradermal 1 2009 Unknown, Provider [id number] 96 Sanofi Pasteur (PMC) complet ed tuberculi n skin test; purified protein derivativ e solution, intraderm al [facility] Novel Influenza-H1N 1-09,live virus,nasal 2008 125 complet ed Novel Influenza -[id number], live virus,pauline al 10/08/09 Given Ambulat ory Pharmac y Novel Influenza-H1N 1-09, live virus for nasal administratio n 1 2008 Unknown, Provider 125 Transcribed (TRS) complet ed Novel Influenza -[id number], live virus for nasal administr ation DoD tetanus, diphtheria, acellular pertu is 2008 115 complet ed tetanus, diphtheri a, acellular pertussis 07/07/09 Given Ambulat ory Pharmac y tetanus toxoid, reduced diphtheria toxoid, and acellular pertu is vaccine, adsorbed 1 2008 Unknown, Provider 115 Transcribed (TRS) complet ed tetanus toxoid, reduced diphtheri a toxoid, and acellular pertussis vaccine, adsorbed DoD tuberculin purified protein derivative 2007 zzLef t Arm [id number] 96 sanofi pasteur complet ed Patient Tolerance : Negative Ambulat ory Pharmac y tuberculin skin test; purified protein derivative solution, intradermal 1 2007 Unknown, Provider [id number] 96 Sanofi Pasteur ([facility]) complet ed tuberculi n skin test; purified protein derivativ e solution, intraderm al DoD tuberculin purified protein derivative 2006 [id number] 96 [facility] complet ed tuberculi n purified protein derivativ e 09/11/07 Given Ambulat ory Pharmac y measles/mumps /rubella virus vaccine 2006 zzRig ht Arm [id number] Merck & Company Inc complet ed measles/m umps/rube lla virus vaccine 08/01/07 Given Ambulat ory Pharmac y measles, mumps and rubella virus vaccine 3 2006 Unknown, Provider [id number] Merck (MSD) complet ed measles, mumps and rubella virus vaccine DoD tuberculin purified protein derivative 2006 zzLef t Arm [id number] 96 Unknown complet ed Patient Tolerance : Negative Ambulat ory Pharmac y tuberculin skin test; purified protein derivative solution, intradermal 1 2006 Unknown, Provider [id number] 96 Other (OT) complet ed tuberculi n skin test; purified protein derivativ e solution, intraderm al DoD measles virus vaccine 1976 05 complet ed measles virus vaccine 04/28/77 Given Ambulat ory Pharmac y measles virus vaccine 2 1976 Unknown, Provider 05 Transcribed (TRS) complet ed measles virus vaccine DoD rubella virus vaccine 1974 06 complet ed rubella virus vaccine 03/12/75 Given Ambulat ory Pharmac y mumps virus vaccine 1974 07 complet ed mumps virus vaccine 03/12/75 Given Ambulat ory Pharmac y rubella virus vaccine 1 1974 Unknown, Provider 06 Transcribed (TRS) complet ed rubella virus vaccine DoD mumps virus vaccine 1 1974 Unknown, Provider 07 Transcribed (TRS) complet ed mumps virus vaccine DoD measles virus vaccine 1973 05 complet ed measles virus vaccine 03/19/74 Given Ambulat ory Pharmac y measles virus vaccine 1 1973 Unknown, Provider 05 Transcribed (TRS) complet ed measles virus vaccine DoD Vital Signs Combined list of inpatient and outpatient Vital Signs from Department of Defense and Veterans Affairs, ranging from 12 months to all on record, depending upon the facility. Vital Sign Value Date Comments Source Systolic Blood Pressure 124mm[Hg] 03/16/2024 20:07:00 Ambulatory Pharmacy Diastolic Blood Pressure 84mm[Hg] 03/16/2024 20:07:00 Ambulatory Pharmacy Mean Arterial Pressure, Calc 97mm[Hg] 03/16/2024 20:07:00 Ambulatory P harmacy Peripheral Pulse Rate 87bpm 03/16/2024 20:07:00 Ambulatory Pharmacy Respiratory Rate 14br/min 03/16/2024 20:07:00 Ambulatory Pharmacy Temperature Oral 36.7Cel 03/16/2024 20:07:00 Ambulatory Pharmacy BP Site 03/16/2024 20:07:00 [facility] Pharmacy Blood Pressure Manual 03/16/2024 20:07:00 Ambulatory Pharmacy Systolic Blood Pressure 115mm[Hg] 12/14/2023 20:02:00 Ambulatory Pharmacy Diastolic Blood Pressure 76mm[Hg] 12/14/2023 20:02:00 Ambulatory Pharmacy Mean Arterial Pressure, Calc 89mm[Hg] 12/14/2023 20:02:00 Ambulatory P harmacy Peripheral Pulse Rate 85bpm 12/14/2023 20:02:00 Ambulatory Pharmacy Respiratory Rate 14br/min 12/14/2023 20:02:00 Ambulatory Pharmacy Temperature Oral 36.6Cel 12/14/2023 20:02:00 Ambulatory Pharmacy BP Site 12/14/2023 20:02:00 [facility] Pharmacy Blood Pressure Manual 12/14/2023 20:02:00 Ambulatory Pharmacy Systolic Blood Pressure 104mm[Hg] 06/10/2023 19:24:00 Ambulatory Pharmacy Diastolic Blood Pressure 74mm[Hg] 06/10/2023 19:24:00 Ambulatory Pharmacy Mean Arterial Pressure, Calc 84mm[Hg] 06/10/2023 19:24:00 Ambulatory P harmacy Peripheral Pulse Rate 74bpm 06/10/2023 19:24:00 Ambulatory Pharmacy Respiratory Rate 12br/min 06/10/2023 19:24:00 Ambulatory Pharmacy Temperature Oral 37.1Cel 06/10/2023 19:24:00 Ambulatory Pharmacy BP Site 06/10/2023 19:24:00 [facility] Pharmacy Blood Pressure Manual 06/10/2023 19:24:00 Ambulatory Pharmacy Systolic Blood Pressure 125mm[Hg] 06/22/2024 20:20:00 Ambulatory Pharmacy Diastolic Blood Pressure 85mm[Hg] 06/22/2024 20:20:00 Ambulatory Pharmacy Mean Arterial Pressure, Calc 98mm[Hg] 06/22/2024 20:20:00 Ambulatory P harmacy Peripheral Pulse Rate 90bpm 06/22/2024 20:20:00 Ambulatory Pharmacy Respiratory Rate 14br/min 06/22/2024 20:20:00 Ambulatory Pharmacy Temperature Oral 36.8Cel 06/22/2024 20:20:00 Ambulatory Pharmacy BP Site 06/22/2024 20:20:00 [facility] Blood Pressure Manual 06/22/2024 20:20:00 Ambulatory Pharmacy Systolic Blood Pressure 132mm[Hg] 10/21/2023 20:19:00 Ambulatory Pharmacy Diastolic Blood Pressure 88mm[Hg] 10/21/2023 20:19:00 Ambulatory Pharmacy Mean Arterial Pressure, Calc 103mm[Hg] 10/21/2023 20:19:00 Ambulatory P harmacy Peripheral Pulse Rate 72bpm 10/21/2023 20:19:00 Ambulatory Pharmacy Respiratory Rate 20br/min 10/21/2023 20:19:00 Ambulatory Pharmacy Temperature Oral 36.8Cel 10/21/2023 20:19:00 Ambulatory Pharmacy BP Site 10/21/2023 20:19:00 [facility] Blood Pressure Manual 10/21/2023 20:19:00 Ambulatory Pharmacy Systolic Blood Pressure 107mm[Hg] 11/08/2024 17:26:00 Ambulatory Pharmacy Diastolic Blood Pressure 75mm[Hg] 11/08/2024 17:26:00 Ambulatory Pharmacy Mean Arterial Pressure, Calc 86mm[Hg] 11/08/2024 17:26:00 Ambulatory P harmacy Peripheral Pulse Rate 69bpm 11/08/2024 17:26:00 Ambulatory Pharmacy Respiratory Rate 14br/min 11/08/2024 17:26:00 Ambulatory Pharmacy Temperature Oral 36.7Cel 11/08/2024 17:26:00 Ambulatory Pharmacy BP Site 11/08/2024 17:26:00 [facility] Pharmacy Blood Pressure Manual 11/08/2024 17:26:00 Ambulatory Pharmacy Systolic Blood Pressure 135mm[Hg] 10/22/2024 21:31:00 Ambulatory Pharmacy Diastolic Blood Pressure 86mm[Hg] 10/22/2024 21:31:00 Ambulatory Pharmacy Mean Arterial Pressure, Calc 102mm[Hg] 10/22/2024 21:31:00 Ambulatory P harmacy Peripheral Pulse Rate 86bpm 10/22/2024 21:31:00 Ambulatory Pharmacy Respiratory Rate 17br/min 10/22/2024 21:31:00 Ambulatory Pharmacy Temperature Oral 37.0Cel 10/22/2024 21:31:00 Ambulatory Pharmacy Encounters Combined list of: 1) Encounters from Department of Veterans Affairs facilities going back up to thelast 18 months. 2) Encounters from the Department of [employer] facilities going back up to 280 months. Location Location Details Encounter Type Encounter Number Reason For Visit Attending Provider ADM Date DC Date Status Disposition Source [address] [place] [address] Jose Luis ALMENDAREZ [facility] Non-GME FHI1) OUTPATIENT [id number] FE BERNIE Sanchez had a baby ALEXY ODELL 06/10 Released w/o Limitations [address] [place] [address] Jose Luis ALMENDAREZ [facility])(F amily Practic e Non-GME FHI1) [address] [place] [address] Jose Luis ALMENDAREZ [facility])([facility]co tt [facility] Fam Res [place]) OUTPATIENT [id number] employm ent physica TAVIA Alicea 07/22 Released w/o Limitations [address] [place] [address] Jose Luis ALMENDAREZ [facility])([facility] Fam Res [place]) [address] [place] [address] Jose Luis ALMENDAREZ [facility])(Sco tt [facility] Fam Res [place]) TELE CONSULT [id number] Form TAVIA TAFOYA 07/[address] [place] [address] Jose Luis ALMENDAREZ [facility])([facility] Fam Res [place]) [address] [place] [address] Jose Luis ALMENDAREZ [facility])([facility] Non-GME FHI1) OUTPATIENT [id number] ELODIA Adams 12/08 Released w/o Limitations [address] [place] [address] Jose Luis ALMENDAREZ [facility])(F amily Practic e Non-GME FHI1) [address] [place] [address] Jose Luis ALMENDAREZ [facility])([facility] Non-GME FHI1) OUTPATIENT [id number] control JOSE GARG 01/25 Released w/o Limitations [address] [place] [address] Jose Luis ALMENDAREZ [facility])(F amily Practic e Non-GME FHI1) [address] [place] [address] Jose Luis [facility])(Opt ometry) OUTPATIENT [id number] eye exam MARIAN NGO Uzair 02/18 Released w/o Limitations [address] [place] [address] Jose Luis ALMENDAREZ [facility])(O ptometr y) [address] [place] [address] Jose Luis [facility])([facility] Non-GME FHI1) TELE CONSULT [id number] pt needs referra l to ortho for fractur ed toe JUSTIN ABDALLA 03/[address] [place] [address] Jose Luis Katelyn [facility])(F amily Practic e Non-GME FHI1) [address] [place] [address] Jose Luis [facility])([facility] Non-GME FHI1) OUTPATIENT [id number] Outside ER Sat/dx fx lt 2nd toe/to bring films and paperwo LUCY Cruz 03/14 Released w/o Limitations [address] [place] [address] Jose Luis [facility])(F amily Practic e Non-GME FHI1) [address] [place] [address] Jose Luis [facility])([facility] - [facility]) OUTPATIENT [id number] TANIKA RANGEL 03/14 Released w/o Limitations [address] [place] [address] Jose Luis ALMENDAREZ [facility])(V A - Orthope dics) [address] [place] [address] Jose Luis ALMENDAREZ [facility])([facility]) OUTPATIENT [id number] FRACTUR E OF METATAR JORDAN BONE(S) TANIKA RANGEL 04/08 Released w/o Limitations [address] [place] [address] Jose Luis ALMENDAREZ [facility])(V A - Orthope dics) [address] [place] [address] Jose Luis [place] [facility])([facility] Non-GME FHI1) OUTPATIENT [id number] tb test/pc LINYD Macedo 11/28 Released w/o Limitations [address] [place] [address] Jose Luis [place] [facility])(F amily Practic e Non-GME FHI1) [address] [place] [address] Jose Luis [facility])([facility]) OUTPATIENT [id number] CRESENCIO Jackson 03/10 Released w/o Limitations [facility] [employer] ([facility]) [facility] [employer] [facility])([facility] rick Practice Non-GME FHI1) TELE CONSULT [id number] randi CORREAJUSTIN DEL CID 08/10 [facility] [employer] ([facility])(F amily Practic e Non-GME FHI1) [facility] Jose Luis B [facility])(Director 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 ecology) OUTPATIENT [id number] ANNUAL PAP SMEAR. [phone] NANDINI ROLON 09/04 Released w/o Limitations [facility] [employer] ([facility])(G ynecolo gy) [address] [place] [address] [employer] ([facility])(Fam rick Practice Non-GME FHI1) OUTPATIENT [id number] tb test MARTÍN HERMAN 09/11 Released w/o Limitations [address] [place] [address] [employer] [facility])(F amily Practic e Non-GME FHI1) [address] [place] [address] [employer] [facility])([facility] rick Practice Non-GME FHI1) OUTPATIENT [id number] WELL PHYSICA L NEED TB TEST ALSO MARTÍN HERMAN 02/06 Released w/o Limitations [address] [place] [address] [employer] [facility])(F amily Practic e Non-GME FHI1) [address] [place] [address] [employer] ([facility] rick Practice Non-GME FHI1) OUTPATIENT [id number] immuniz atLINDY Montano 02/06 Released w/o Limitations [address] [place] [address] [employer] [facility])(F amily Practic e Non-GME FHI1) [address] [place] [address] [employer] [facility])([facility] rick Practice Non-GME FHI1) OUTPATIENT [id number] tb test read MARTÍN HERMAN 02/08 Released w/o Limitations [address] [place] [address] [employer] [facility])(F amily Practic e Non-GME FHI1) [address] [place] [address] [employer] [facility])(Fam rick Practice Non-GME FHI1) TELE CONSULT [id number] walk in RMJUSTIN 02/[address] [place] [address] [employer] [facility] [place])(F amily Practic e Non-GME FHI1) [address] [place] [address] [employer] ([facility]Fam rick Practice Non-GME FHI1) TELE CONSULT [id number] repeat ua JUSTIN PALACIO Jeff 02/[address] [place] [address] Group [employer] ([facility])(F amily Practic e Non-GME FHI1) [address] [place] [address] [employer] ([facility])(Fam rick Practice Non-GME FHI1) OUTPATIENT [id number] rectal itching MARTÍN HERMAN 03/06 Released w/o Limitations [address] [place] [address] Group [employer] ([facility])(F amily Practic e Non-GME FHI1) [facility] [employer] ([facility])(Director 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 ecology) OUTPATIENT [id number] PREG TEST AL HANSEN 11/19 Released w/o Limitations [address] [place] [address] [employer] ([facility])(G ynecolo gy) [address] [place] [address] [employer] ([facility])(Ob/ Director 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) TELE CONSULT [id number] Repeat Urine culture ROSA SPARKS 11/25 [facility] [employer] ([facility])(O b/Director 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) [address] [place] [address] [employer] ([facility])([facility] rick Practice Non-GME FHI1) TELE CONSULT [id number] Weekend Call - PA PASCUAL Ham 11/[address] [place] [address] [employer] ([facility])(F amily Practic e Non-GME FHI1) [address] [place] [address] [employer] ([facility])(Ob/ Director 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) TELE CONSULT [id number] referRUSTY Joiner 11/26 [facility] [employer] ([facility])(O b/Director 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) [facility] [employer] ([facility])([facility]) OUTPATIENT [id number] OB JEOVANY Rock 11/28 Released w/o Limitations [facility] [employer] ([facility])(N utritio nal Medicin e) [facility] [employer] ([facility])(Ob/ Director 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) OUTPATIENT [id number] EDC [id number] [id number] AL HANSEN 11/28 Released w/o Limitations [address] [place] [address] [employer] ([facility])(O b/Director 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) [employer] ([facility])(Ob/ Director 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) OUTPATIENT [id number] new ob - edc Jun CARLTONRISSADOT J 01/16 Released w/o Limitations [employer] ([facility])(O b/Director 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) [employer] ([facility])(Ob/ Director 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) TELE CONSULT [id number] Randi chaudhry PRATIMA Flores 01/16 [employer] ([facility])(O b/Director 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) [employer] ([facility])(Ob/ Director 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) OUTPATIENT [id number] sidney jun 29 NANDINI ROLON 02/12 Released w/o Limitations [employer] ([facility])(O b/Director 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) [employer] ([facility])(Ob/ Director 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) OUTPATIENT [id number] NANDINI ROLON 03/13 Released w/o Limitations [employer] ([facility])(O b/Director 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) [employer] ([facility])(Ob/ Director 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) TELE CONSULT [id number] OB w/ pelvic pain TYRONE, AL L 03/27 [employer] ([facility])(O b/Director 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) [employer] ([facility])(Ob/ Director 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) OUTPATIENT [id number] EDC [id number] DARREN ISBELL 04/10 Released w/o Limitations [employer] ([facility])(O b/Director 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) [employer] ([facility])(Ob/ Director 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) TELE CONSULT [id number] shannon cisneros BRANDONPRATIMA 04/28 [employer] ([facility])(O b/Director 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) [employer] ([facility])(Ob/ Director 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) OUTPATIENT [id number] EDC [id number] DARREN ISBELL 05/06 Released w/o Limitations [employer] ([facility])(O b/Director 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) [employer] ([facility])(Ob/ Director 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) OUTPATIENT [id number] EDC 05 Jul 2009 NANDINI ROLON 05/28 Released w/o Limitations [employer] ([facility])(O b/Director 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) [employer] ([facility])(Ob/ Director 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) OUTPATIENT [id number] sidney - edc jun 29 CLAREROSA 06/10 Released with Work/Duty Limitations [employer] ([facility])(O b/Director 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) [employer] ([facility])(Ob/ Director 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) TELE CONSULT [id number] f/u on lab results CLAREROSA 06/16 [employer] ([facility])(O b/Director 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) [employer] ([facility])(Ob/ Director 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) OUTPATIENT [id number] sidney - edc jun 29 DOT CARLTON 06/17 Released w/o Limitations [employer] ([facility])(O b/Director 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) [employer] ([facility])(Ob/ Director 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) OUTPATIENT [id number] sidney - edc jun 29 RAMIREZ DANIEL 06/26 Released w/o Limitations [employer] ([facility])(O b/Director 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) [employer] ([facility])(Ob/ Director 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) OUTPATIENT [id number] sidney - edc jun 29 ROSA SPARKS 07/01 Released w/o Limitations [employer] ([facility])(O b/Director 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) [employer] ([facility])(Ob/ Director 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) OUTPATIENT [id number] 6 wk pp RAMIREZ DANIEL 08/18 Released w/o Limitations [employer] ([facility])(O b/Director 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) [employer] ([facility])(Sco tt [facility] Team 3) OUTPATIENT [id number] Migrane s and dizzine ss [phone] PASCUAL GAO 01/08 Released w/o Limitations [employer] ([facility])(S cott [facility] Team 3) [employer] ([facility])(Sco tt [facility] Team 3) OUTPATIENT [id number] Employm ent physicPASCUAL Leahy 01/21 Released w/o Limitations [employer] ([facility])(S cott [facility] Team 3) [address] [place] [address] Jose Luis [facility])([facility] Team 3) TELE CONSULT [id number] Foot pain - ALEXY Galindo 02/[address] [place] [address] Jose Luis [facility])([facility] Team 3) [address] [place] [address] Jose Luis [facility])([facility] Team 3) TELE CONSULT [id number] Referra l needed/ ZAHIRA Garcia 04/[address] [place] [address] Jose Luis [facility])([facility] Team 3) [address] [place] [address] Jose Luis [facility])([facility] Team 3) TELE CONSULT [id number] mammogr am results ZAHIRA ALEJANDRO 05/[address] [place] [address] Jose Luis [facility])([facility] Team 3) [address] [place] [address] Jose Luis [facility])([facility] Team 3) TELE CONSULT [id number] 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 COLEEN ATKINS 05/28 Referred for Appointment [address] [place] [address] Jose Luis [facility])([facility] Team 3) [address] [place] [address] Jose Luis [facility])([facility] Team 3) OUTPATIENT [id number] migrain es...[phone] CHAGO NGO 07/22 Released w/o Limitations [address] [place] [address] Jose Luis [facility])([facility] Team 3) [address] [place] [address] Jose Luis [facility])([facility] Team 3) TELE CONSULT [id number] ? for COLEEN Urena 08/07 Referred for Appointment [address] [place] [address] Jose Luis [facility])([facility] Team 3) [address] [place] [address] Jose Luis [facility])([facility] Team 3) TELE CONSULT [id number] Pt is needing a Urology referra l per her last visit with her PCM. [phone] ALEXA BANEGAS 10/22 Referred for Appointment [facility] Jose Luis B [facility] Team 3) [address] [place] [address] Jose Luis [facility])([facility] Team 3) OUTPATIENT [id number] f/u for migrain es PASCUAL GAO 11/12 Released w/o Limitations [facility] [place] ([facility] Team 3) [facility] Jose Luis SHANELLEB [facility])(Director 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 ecology) OUTPATIENT [id number] STRESS INCONTI JEREMIE RMAIREZ Jeff 11/17 Released w/o Limitations [facility] Jose Luis [place] ([facility])(G ynecolo gy) [facility] Jose Luis SHANELLEB [facility])([facility] Team 3) TELE CONSULT [id number] need refill on migrain e medicat ion ALEXA BANEGAS 11/24 Referred for Appointment [facility] Group Jose Luis SH[facility]ELLE[facility] Team 3) [address] [place] [address] Jose Luis SHANELLEB [facility])([facility] Team 3) TELE CONSULT [id number] MRI results PASCUAL GAO 11/[address] [place] [address] Jose Luis [place] ([facility] Team 3) [address] [place] [address] Jose Luis [facility]ELLE[facility])(War rior Op Med Cln Tm A Ad) TELE CONSULT [id number] Neurolo gy referra ALEXA Castillo 11/27 Referred for Appointment [facility] Group Jose Luis [facility])(W arrior Op Med Cln Tm A Ad) [facility] Jose Luis [facility])([facility] Team 3) TELE CONSULT [id number] [facility] /[phone] nts to know if disk was sent to dr in ALEXA Martines 11/30 Referred for Appointment [facility] Group Jose Luis [facility]EL[facility] Team 3) [facility] Jose Luis [facility])([facility] Team 3) TELE CONSULT [id number] Schloer /[phone]/re fill prenata l vitamin ALEXA Kay 12/02 Referred for Appointment [facility] Group Jose Luis [facility] Team 3) [facility] Jose Luis SH[facility]EL[facility]B [facility])([facility] Team 3) TELE CONSULT [id number] pt wants stronge r migrain e med and discuss recent visit w/neuro logist ALEXA BANEGAS 01/05 Referred for Appointment [facility] Jose Luis [place] ([facility] Team 3) [facility] [employer] ([facility])([facility] Team 3) OUTPATIENT [id number] Walk in UTI PASCUAL GAO 07/16 Released w/o Limitations [facility] [employer] ([facility] Team 3) [facility] [employer] ([facility])([facility] Team 3) OUTPATIENT [id number] migrain es LIZBETH HOLLIS 02/09 Released w/o Limitations [address] [place] [address] Group [employer] ([facility] Team 3) [address] [place] [address] [employer] ([facility])([facility] Team 3) OUTPATIENT [id number] F/U and phy [phone] PASCUAL GAO 05/30 Released w/o Limitations [address] [place] [address] [employer] ([facility] Team 3) [facility] [employer] Luis B ([facility])([facility] Team 3) TELE CONSULT [id number] Notes Entered by: PASCUAL GAO 10 Aug 2012 07 ------- ------- ------- ------- -- x-ray ALEXA BANEGAS 08/[address] [place] [address] [employer] ([facility] Team 3) [address] [place] [address] [employer] ([facility])([facility] Team 3) OUTPATIENT [id number] Foot fractur e, s/p ED visit on 07/21/12 PASCUAL GAO 08/25 Released w/o Limitations [address] [place] [address] Group [employer] ([facility] Team 3) [address] [place] [address] [employer] [facility] Team 3) TELE CONSULT [id number] Notes Entered by: Raymon TRENT 17 Oct [id number] ------- ------- ------- ------- -- Med refill maxalt as needed [phone] DUKE Graham 10/[address] [place] [address] Jose Luis ALMENDAREZ [facility] Team 3) [address] [place] [address] Jose Luis [facility])(Fam rick Med Tm B Non-AD BCC) TELE CONSULT [id number] Notes Entered by: PRADEEP WANG 06 Nov 2012 0655 ------- ------- ------- ------- -- After hours call PRADEEP RALPH 11/[address] [place] [address] Jose Luis [facility])(F amily Med Tm B Non-AD BCC) [address] [place] [address] Jose Luis [facility])(Director 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 ecology) OUTPATIENT [id number] pap exam [id number] NERIS PORTER 11/24 Released w/o Limitations [address] [place] [address] Jose Luis [facility])(G becca gy) [address] [place] [address] Jose Luis [facility])(Director 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 ecology) TELE CONSULT [id number] Notes Entered by: SAMIA PORTER 04 Dec 2012 0839 ------- ------- ------- ------- -- results NERIS PORTER 12/[address] [place] [address] Jose Luis [facility])(G yneconoemy gy) [address] [place] [address] Jose Luis [facility])(Director 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 ecology) TELE CONSULT [id number] Notes Entered by: SAMIA PORTER 18 Dec 2012 1542 ------- ------- ------- ------- -- results CLARK ESCALERA 12/[address] [place] [address] Jose Luis [facility])(G becca gy) [address] [place] [address] Jose Luis [facility])([facility] Team 3) TELE CONSULT [id number] Notes Entered by: THEA DENSON 22 Feb 2013 1122 ------- ------- ------- ------- -- Network Results -Treyiat ry09/04 PASCUAL GAO 02/[address] [place] [address] Jos [facility]is [facility]S [facility] Team 3) [address] [place] [address] Jose Luis [facility])([facility] Team 3) OUTPATIENT [id number] walk in UTI PASCUAL GAO 03/12 Released w/o Limitations [address] [place] [address] Group Jose Luis SHANELLEB ([facility])([facility] Team 3) [address] [place] [address] Jos Eluis [facility])(Director 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 ecology) TELE CONSULT [id number] Notes Entered by: ALEJA HENSLEY 01 May 2013 1350 ------- ------- ------- ------- -- Med Refill- ARC AND GAS WELDER/[phone] VERENICE HENDERSON 05/[address] [place] [address] Jose Luis [facility] ([facility])(Andrei christiansen) [address] [place] [address] Jose Lusi [facility])([facility] Team 3) OUTPATIENT [id number] fungus in scalp [phone] PASCUAL GAO 07/19 Released w/o Limitations [address] [place] [address] Jose Luis SH[place]EL[place] ([facility] Team 3) [address] [place] [address] Jose Luis [facility])([facility] Team 3) TELE CONSULT [id number] Notes Entered by: DEBBIE GOLDBERG 04 Oct [id number] ------- ------- ------- ------- -- Finger pain - Order x-ray - [facility] [phone] JEREMIAH STEINBERG 10/[address] [place] [address] Jose Luis SHANELLEB ([facility] Team 3) [address] [place] [address] Jose Luis [facility])(Director 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 ecology) TELE CONSULT [id number] Notes Entered by: ZAHRAA TIWARI 10 Oct 2013 0853 ------- ------- ------- ------- -- F/u appt/58 [phone] or PRATIMA TAYLOR 10/[address] [place] [address] [employer] ([facility])(Andrei christiansen) [address] [place] [address] Jose Luis B [facility])([facility] Team 3) TELE CONSULT [id number] Notes Entered by: MEMO CONWAY 10 Oct 2013 1251 ------- ------- ------- ------- -- Network Results -URGENT CARE 3 PASCUAL GAO 10/[address] [place] [address])([facility] Team 3) [address] [place] [address])([facility] Team 3) TELE CONSULT [id number] Notes Entered by: RUBEN PARSONS 29 Jan 2014 0839 ------- ------- ------- ------- -- Sx shoulde r pain [facility] [phone] or [phone] [employer] 01/[address] [place] [address])([facility] Team 3) [address] [place] [address])([facility] Team 3) OUTPATIENT [id number] Pain in left shoulde r to left elbow [id number] s; no numbnes s/tingl ing LIZBETH HOLLIS 02/07 Released w/o Limitations [address] [place] [address])([facility] Team 3) [address] [place] [address])([facility] Team 3) TELE CONSULT [id number] Notes Entered by: ALEJA HENSLEY 22 Feb 2014 0938 ------- ------- ------- ------- -- Sx Headach e-Schro /[phone] [employer] 02/[address] [place] [address])([facility] Team 3) [address] [place] [address])([employer] Med Cln Tm A Ad) TELE CONSULT [id number] Notes Entered by: CLAUDETTE MAURICE 29 Mar 2014 1119 ------- ------- ------- ------- -- Network Results - Physica l Therapy 4 VAN REDMOND 03/29 [facility] Group Jose Luis ALMENDAREZ [facility])(W arrior Op Med Cln Tm A Ad) [address] [place] [address] Group Jose Luis [facility])(War rior Op Med Cln Tm A Ad) TELE CONSULT [id number] Notes Entered by: ALICIA AWAN 11 Apr 2014 1155 ------- ------- ------- ------- -- Network results - Urgent Care 014 LIZBETH HOLLIS 04/[address] [place] [address] Jose Luis ALMENDAREZ [facility])(W arrior Op Med Cln Tm A Ad) [address] [place] [address] Jose Luis [facility])(Fam rick Med Tm B Non-AD BCC) OUTPATIENT [id number] f/u on meds - [phone] LIZBETH HOLLIS 04/30 Released w/o Limitations [address] [place] [address] Jose Luis [facility])(F amily Med Tm B Non-AD BCC) [address] [place] [address] Jose Luis [facility])(Fam rick Med Tm B Non-AD BCC) TELE CONSULT [id number] Notes Entered by: CLAUDETTE MAURICE 28 May 2014 1535 ------- ------- ------- ------- -- Network Results - Physica l Therapy 4 GAVIOTA VICTOR 05/28 Referred for Appointment [address] [place] [address] Group Jose Luis [facility])(F amily Med Tm B Non-AD BCC) [address] [place] [address] Jose Luis [facility])(Sco tt [facility] Fam Res Tm Red) OUTPATIENT [id number] IVON Reaves 06/16 Released w/o Limitations [address] [place] [address] Group Jose Luis ALMENDAREZ [facility])(S cott [facility] Fam Res Tm Red) [address] [place] [address] Jose Luis [facility])(Sco tt [facility] Fam Res Tm Red) TELE CONSULT [id number] Notes Entered by: Sean WILLARD 29 Jul 2016 1015 ------- ------- ------- ------- -- Neurolo gy Referra l Request - ER/Hosp ital F/U / Brewste r / - ajTASNEEM Munson 07/[address] [place] [address] Jose Luis [facility] Fam Res Tm Red) [address] [place] [address] Jose Luis [facility])(Mso tt [facility] Fam Res Tm Red) OUTPATIENT [id number] f/u [facility] l: migrain e/verti go IVON KELLY 08/04 Released w/o Limitations [address] [place] [address] Jose Luis ALMENDAREZ [facility])([facility] Fam Res Tm Red) [address] [place] [address] Jose Luis [place] [facility])([facility] S II Test Jose Luis) TELE CONSULT [id number] Notes Entered by: COLLEEN KNOWLES 05 Aug 2016 1158 ------- ------- ------- ------- -- Neurolo JASWANT Paiz 08/05 Referred for Appointment [address] [place] [address] Jose Luis [facility] II Test Jose Luis) [address] [place] [address] Jose Luis [facility])(Mso tt [facility] Fam Res Tm Red) TELE CONSULT [id number] Notes Entered by: COLLEEN KNOWLES 12 Aug 2016 1323 ------- ------- ------- ------- -- JASWANT Desir 08/12 Referred for Appointment [address] [place] [address] Jose Luis [facility])([facility] Fam Res Tm Red) [address] [place] [address] Jose Luis B [facility])([facility] FAMRES Tm Blue) OUTPATIENT [id number] Initial Botox appoinm ent.ALL Churchill 08/27 Released w/o Limitations [address] [place] [address] Jose Luis [facility])([facility] [facility] FAMRES Tm Blue) [address] [place] [address] Jose Luis [place] [facility])([facility] Fam Res Tm Red) TELE CONSULT [id number] Notes Entered by: DIVYA VALDEZ 24 Sep 2016 1323 ------- ------- ------- ------- -- Records req/Ellie lubinter/5 86.413. 1094/cl TASNEEM Fernando 09/[address] [place] [address])([facility] Fam Res Tm Red) [address] [place] [address])([facility] Fam Res Tm Red) TELE CONSULT [id number] Notes Entered by: Nubia MCCALL 13 Oct 2016 0817 ------- ------- ------- ------- -- Request s med refill Sumatri ptan nasal spray. TASNEEM MCCALL 10/[address] [place] [address])([facility] Fam Res Tm Red) [address] [place] [address])([facility] Fam Res Tm Red) TELE CONSULT [id number] Notes Entered by: YAIMA BARRY 22 Oct 2016 1031 ------- ------- ------- ------- -- Neurosu rgery renewal refer l YAIMA BARRY 10/22 Other Not Elsewhere Classified [address] [place] [address])([facility] Fam Res Tm Red) [address] [place] [address])([facility] Fam Res Tm Red) TELE CONSULT [id number] Notes Entered by: DEBBIE GOLDBERG 27 Oct 2016 0734 ------- ------- ------- ------- -- Isabelle Gipson - - tsg TASNEEM MCCALL 10/[address] [place] [address])([facility] Fam Res Tm Red) [address] [place] [address])([facility] Fam Res Tm Red) OUTPATIENT [id number] med refills / IVON KELLY 10/28 Released w/o Limitations [address] [place] [address])([facility] Fam Res Tm Red) [address] [place] [address] Jose Luis [place] [facility])(Sco tt [facility] Fam Res Tm Green) TELE CONSULT [id number] Notes Entered by: THEA DENSON 09 Nov 2016 1044 ------- ------- ------- ------- -- Network Results SURGERY 10/29/16 JASWANT CAROLINA 11/09 Released to Self Care [address] [place] [address] Jose Luis [place] [facility])([facility] Fam Res Tm Green) [address] [place] [address] Jose Luis [place] [facility])([facility] Fam Res Tm Green) OUTPATIENT [id number] Botoz F/u last injecti o ot2015. LILLY FONG 11/17 Released w/o Limitations [address] [place] [address] Jose Luis [place] [facility])(S [facility] Fam Res Tm Green) [address] [place] [address] Jose Luis [place] [facility])([facility] Fam Res Tm Gold) OUTPATIENT [id number] jameson big toenail fungus and in hair / CORNELIA BAUTISTA 11/19 Released w/o Limitations [address] [place] [address] Jose Luis [place] [facility])(S [facility] Fam Res Tm Gold) [address] [place] [address] Jose Luis [place] [facility])(Sco tt [facility] Fam Res Tm Red) TELE CONSULT [id number] Notes Entered by: SA ASHELY VALLE 23 Nov 2016 1600 ------- ------- ------- ------- -- Lab Results request - fax from TASNEEM BOSTON 11/[address] [place] [address] Jose Luis [place])(S [facility] Fam Res Tm Red) [address] [place] [address] Jose Luis [place] [facility])(Sco tt [facility] Fam Res Tm Red) TELE CONSULT [id number] Notes Entered by: JC SANTAMARIA 11 Jan 2017 1449 ------- ------- ------- ------- -- Letter for Work/Venancio felix/ TASNEEM MCCALL 01/[address] [place] [address] Jose Luis ALMENDAREZ [facility])(S [facility] Fam Res Tm Red) [address] [place] [address] Jose Luis [place]END[place] [facility])(Min or Procedure Clinic) OUTPATIENT [id number] BotoxF/ U last injecti on 23 Nov 2016 LILLY FONG 01/28 Released w/o Limitations [address] [place] [address] Jose Luis [place] [facility])(M inor Procedu re Clinic) [address] [place] [address] Jose Luis [place] [facility])(Sco tt [facility] Fam Res Tm Red) TELE CONSULT [id number] Notes Entered by: DIVYA VALDEZ 31 Jan 2017 1521 ------- ------- ------- ------- -- Sx; Pain after Botox/M eds not in pharmac y/Brew[address] ter/586 .413.10 94/clm LILLY FONG 01/[address] [place] [address] Jose Luis ALMENDAREZ [facility])([facility] Fam Res Tm Red) [address] [place] [address] Jose Luis [facility])(Sco tt [facility] Fam Res Tm Red) TELE CONSULT [id number] Notes Entered by: DIVYA VALDEZ 21 Feb 2017 0747 ------- ------- ------- ------- -- Sx: Migrain e/Brews ter/874 .8719 or /c TASNEEM Paniagua 02/[address] [place] [address] Jose Luis ALMENDAREZ [facility])([facility] Fam Res Tm Red) [address] [place] [address] Jose Luis [facility])([facility]so [facility] Fam Res Tm Green) OUTPATIENT [id number] migrane s medicat ion LILLY FONG 02/28 Released w/o Limitations [address] [place] [address] Jose Luis [place] [facility])([facility] Fam Res Tm Green) [address] [place] [address] Jose Luis [place]END[place] [facility])(Med ication Refill Clinic) TELE CONSULT [id number] Notes Entered by: DIVYA VALDEZ 17 Mar 2017 1343 ------- ------- ------- ------- -- Unable to renew meds/Br elvira/ /c ISABELLE Da Silva 03/[address] [place] [address] Jose Luis Katelyn [facility])(Angelo [facility] on Refill [facility]) [address] [place] [address] Jose Luis [facility])(Sco tt [facility] Fam Res Tm Red) TELE CONSULT [id number] Notes Entered by: DEBBIE GOLDBERG 11 Apr 2017 0648 ------- ------- ------- ------- -- Sx: Migrain e - Assista nce with Rx - Dustin r - [phone] -[phone]/5 [phone] - tsg TASNEEM MCCALL 04/[address] [place] [address] Jose Luis Katelyn [facility])(S cott [facility] Fam Res Tm Red) [address] [place] [address] Jose Luis Katelyn [facility])(Sco tt [facility] Fam Res Tm Green) OUTPATIENT [id number] last botox [id number] /botox inj MIKI FONGHAD 04/15 Released w/o Limitations [address] [place] [address] Jose Luis Katelyn [facility])(S cott [facility] Fam Res Tm Green) [address] [place] [address] Jose Luis Katelyn [facility])(Sco tt [facility] Fam Res Tm Green) OUTPATIENT [id number] BFA/H/A LILLY FONG 05/04 Released w/o Limitations [address] [place] [address] Jose Luis Katelyn [facility])(S cott [facility] Fam Res Tm Green) [address] [place] [address] Jose Ulis [facility])(Min or Procedure Clinic) OUTPATIENT [id number] Botox F/u migrain e headach es/last injecti on May 05 2017, TRAY AHLL 07/15 Released w/o Limitations [address] [place] [address] Jose Luis Katelyn [facility])(Angelo inor Procedu re Clinic) [address] [place] [address] Jose Luis Katelyn [facility])(Sco tt [facility] Fam Res Tm Green) OUTPATIENT [id number] ANEL Aguirre 07/20 Released w/o Limitations [address] [place] [address] Jose Luis Katelyn [facility])(S cott [facility] Fam Res Tm Green) [address] [place] [address] Jose Luis [facility])(Sco tt [facility] Res Green) TELE CONSULT [id number] Notes Entered by: Sean WILLARD 24 Oct 2017 1234 ------- ------- ------- ------- -- Neuro Surgery Referra l Renewal - Appt Oct / Dustin Harkins TASNEEM MCCALL 10/[address] [place] [address] Jose Luis [facility])(S [facility] Res Green) [address] [place] [address] Jose Luis [facility])(Sco tt [facility] Green) TELE CONSULT [id number] Notes Entered by: DIVYA VALDEZ 01 Nov 2017 1029 ------- ------- ------- ------- -- Referra l Renewal /Damaris sparrow/586. 413.109 4/[facility] TASNEEM MCCALL 11/[address] [place] [address])(S [facility] Res Green) [address] [place] [address])(Sco tt [facility] Green) TELE CONSULT [id number] Notes Entered by: JC SANTAMARIA 01 Nov 2017 1342 ------- ------- ------- ------- -- Referra l Renewal Request (appt Oct)/Venancio felix/ TASNEEM MCCALL 11/[address] [place] [address] Jose Luis [facility]S [facility] Green) [address] [place] [address] Jose Luis [facility])(War rior Op Med Cln Tm A Ad) OUTPATIENT [id number] [facility] ent physica l [id number] CADY STEEL 05/30 Released w/o Limitations [address] [place] [address] Jose Luis [facility])(W arrior Op Med Cln Tm A Ad) [address] [place] [address])(War rior Op Med Cln Tm A Ad) OUTPATIENT [id number] 2 paperwo MARY Harmon/14 /2019 Released w/o Limitations [facility] Jose Luis [facility])(W arrior Op Med Cln Tm A Ad) [address] [place] [address] Jose Luis [facility])(Director 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 ecology) OUTPATIENT [id number] wwe [id number] OMAYRA HAGEN 05/23 Released w/o Limitations [facility] Jose Luis [facility])(G ynecolo gy) [address] [place] [address] Jose Luis [facility])(Ob/ Director 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) TELE CONSULT [id number] Notes Entered by: Angelo HAGEN 30 May 2019 1651 ------- ------- ------- ------- -- VERENICE Lim 05/30 Referred for Appointment [facility] Jose Luis [facility])(O b/Director 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) [facility] Jose Luis [facility])(War rior Op Med Cln Tm A Ad) OUTPATIENT [id number] bump near left armpit/ ucc/er/ refusal /[phone] 3March, MARY Lopez 06/05 Released w/o Limitations [facility] Jose Luis [facility])(W arrior Op Med Cln Tm A Ad) [facility] Jose Luis [facility])(War rior Op Med Cln Tm A Ad) OUTPATIENT [id number] 2 referra l for chiro and vertigo MARCH, MARY R 09/26 Released w/o Limitations [facility] Jose Luis [facility])(W arrior Op Med Cln Tm A Ad) [address] [place] [address] Jose Luis [facility])(War rior Op Med Cln Tm A Ad) OUTPATIENT [id number] L Shoulde r Itchy rash hard swollen JASWANT PATRICIO 10/17 Released w/o Limitations [facility] Jose Luis [facility])(W arrior Op Med Cln Tm A Ad) [facility] Jose Luis [facility])(War rior Op Med Cln Tm A Ad) OUTPATIENT [id number] left hand tinglin g getting worse MEDARDO BOYER 05/06 Released w/o Limitations [address] [place] [address])(W arrior Op Med Cln Tm A Ad) [address] [place] [address])(War rior Op Med Cln Tm A Ad) OUTPATIENT [id number] F2F for furuncl e on arm and toenail fungus MEDARDO BOYER 05/08 Released w/o Limitations [address] [place] [address])(W arrior Op Med Cln Tm A Ad) [address] [place] [address])(War rior Op Med Cln Tm A Ad) TELE CONSULT [id number] Notes Entered by: JOHNNIE BOYER 09 May 2020 1248 ------- ------- ------- ------- -- LAB RESULT MEDARDO BOYER 05/[address] [place] [address])(W arrior Op Med Cln Tm A Ad) [address] [place] [address])(Fam rick Med Tm B Non-AD BCC) OUTPATIENT [id number] Notes Entered by: CAROLINA SOTO 12 May 2020 1113 ------- ------- ------- ------- -- walk in BP check MEDARDO BOYER 05/12 Released w/o Limitations [address] [place] [address])(F amily Med Tm B Non-AD BCC) [address] [place] [address])(War rior Op Med Cln Tm A Ad) TELE CONSULT [id number] Notes Entered by: JC SANTAMARIA 12 May 2020 1434 ------- ------- ------- ------- --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 [facility] PHYSICAL THERAPY RE-EVALUATION 12/04/19 04 [facility] PHYSICAL THERAPY RE-EVALUATION 10/29/20 03 [facility] PHYSICAL THERAPY RE-EVALUATION 10/07/20 03 [facility] THERAPEUTIC PROCEDURE, 1 OR MORE AREAS, EACH 15 MINUTES; THERAPEUTIC EXERCISES TO DEVELOP STRENGTH AND ENDURANCE, RANGE OF MOTION AND FLEXIBILITY 09/11/20 03 [facility] THERAPEUTIC PROCEDURE, 1 OR MORE AREAS, EACH 15 MINUTES; THERAPEUTIC EXERCISES TO DEVELOP STRENGTH AND ENDURANCE, RANGE OF MOTION AND FLEXIBILITY 09/05/20 03 [facility] THERAPEUTIC PROCEDURE, 1 OR MORE AREAS, EACH 15 MINUTES; THERAPEUTIC EXERCISES TO DEVELOP STRENGTH AND ENDURANCE, RANGE OF MOTION AND FLEXIBILITY 08/27/20 03 [facility] SCREENING PAPANICOLAOU SMEAR; OBTAINING, PREPARING AND CONVEYANCE OF CERVICAL OR VAGINAL SMEAR TO LABORATORY 08/20/20 03 [facility] REPAIR OF OTHER CURRENT OBSTETRIC LACERATION 09/24/19 96 [facility] Screening papanicolaou smear; obtaining, preparing and conveyance of cervical or vaginal smear to laboratory 05/28/20 19 OMAYRA HAGEN [facility] Non-Physician Phone Call To Patient/Provider Brief (5-10min) Non-Physician Phone Call To Patient/Provider Brief (5-10min) [id number] 11/01/20 17 TASNEEM MCCALL [facility] Non-Physician Phone Call To Patient/Provider Brief (5-10min) Non-Physician Phone Call To Patient/Provider Brief (5-10min) [id number] 10/24/20 17 TASNEEM MCCALL [facility] Skin Lesion Culture Fungi Skin Lesion Culture Fungi [id number] 07/21/20 17 ANEL WHITAKER Enrique Injection, onabotulinumtoxina, 1 unit 07/18/20 17 TRAY HALL Chemodenervation Facial, Trigeminal, Cervical Spinal, Acce ory Nerves Chemodenervation Facial, Trigeminal, Cervical Spinal, Accessory Nerves [id number] 07/18/20 17 TRAY HALL Acupunct One Or More [place] W/O Stimulation Initial 15 Min Acupunct One Or More [place] W/O Stimulation Initial 15 Min [id number] 05/05/20 17 LILLY FONG Injection, onabotulinumtoxina, 1 unit 04/20/20 17 HETAL, LILLYYUSEF Nunez Chemodenervation Facial, Trigeminal, Cervical Spinal, Acce ory Nerves Chemodenervation Facial, Trigeminal, Cervical Spinal, Accessory Nerves [id number] 04/20/20 17 HETAL, LILLYYUSEF Nunez Non-Physician Phone Call To Patient/Provider Brief (5-10min) Non-Physician Phone Call To Patient/Provider Brief (5-10min) [id number] 04/11/20 17 TASNEEM MCCALL Non-Physician Phone Call To Patient/Provider Brief (5-10min) Non-Physician Phone Call To Patient/Provider Brief (5-10min) [id number] 02/23/20 17 TASNEEM MCCALL Chemodenervation Facial, Trigeminal, Cervical Spinal, Acce ory Nerves Chemodenervation Facial, Trigeminal, Cervical Spinal, Accessory Nerves [id number] 02/01/20 17 LILLY FONG Injection, onabotulinumtoxina, 1 unit 02/01/20 17 LILLY FONG Non-Physician Phone Call To Patient/Provider Brief (5-10min) Non-Physician Phone Call To Patient/Provider Brief (5-10min) [id number] 01/11/20 17 TASNEEM MCCALL Non-Physician Phone Call To Patient/Provider Brief (5-10min) Non-Physician Phone Call To Patient/Provider Brief (5-10min) [id number] 12/01/19 17 TASNEEM MCCALL Injection, onabotulinumtoxina, 1 unit 11/23/19 17 LILLY FONG Chemodenervation Facial, Trigeminal, Cervical Spinal, Acce ory Nerves Chemodenervation Facial, Trigeminal, Cervical Spinal, Accessory Nerves [id number] 11/23/19 17 LILLY FONG [facility] Non-Physician Phone Call To Patient/Provider Brief (5-10min) Non-Physician Phone Call To Patient/Provider Brief (5-10min) [id number] 10/27/20 16 TASNEEM MCCALL [facility] Non-Physician Phone Call To Patient/Provider Brief (5-10min) Non-Physician Phone Call To Patient/Provider Brief (5-10min) [id number] 10/22/20 16 YAIMA BARRY [facility] Non-Physician Phone Call To Patient/Provider Brief (5-10min) Non-Physician Phone Call To Patient/Provider Brief (5-10min) [id number] 10/13/20 16 TASNEEM MCCALL [facility] Non-Physician Phone Call To Patient/Provider Brief (5-10min) Non-Physician Phone Call To Patient/Provider Brief (5-10min) [id number] 09/27/20 16 TASNEEM MCCALL Chemodenervation Facial, Trigeminal, Cervical Spinal, Acce ory Nerves Chemodenervation Facial, Trigeminal, Cervical Spinal, Accessory Nerves [id number] 08/31/20 16 DHARMESH, ALL A [facility] Injection, onabotulinumtoxina, 1 unit 08/31/20 16 DHARMESH, ALL A [facility] Non-Physician Phone Call To Patient/Provider Brief (5-10min) Non-Physician Phone Call To Patient/Provider Brief (5-10min) [id number] 08/03/20 16 TASNEEM MCCALL Non-Physician Phone Call To Pt/Provider Intermed (11-20 min) Non-Physician Phone Call To Pt/Provider Intermed (11-20 min) [id number] 02/23/20 14 [facility] [employer] Non-Physician Phone Call To Patient/Provider Brief (5-10min) Non-Physician Phone Call To Patient/Provider Brief (5-10min) [id number] 01/30/20 14 BERNARDINO NGO [facility] Biopsy Of Cervix 11/24/19 13 NERIS PORTER Cervical or vaginal cancer screening; pelvic and clinical breast examination 11/24/19 13 NERIS PORTER Screening papanicolaou smear; obtaining, preparing and conveyance of cervical or vaginal smear to laboratory 11/24/19 13 NERIS PORTER [facility] Non-Physician Phone Call To Patient/Provider Brief (5-10min) Non-Physician Phone Call To Patient/Provider Brief (5-10min) [id number] 08/10/20 12 ALEXA BANEGAS Non-Physician Phone Call To Patient/Provider Brief (5-10min) Non-Physician Phone Call To Patient/Provider Brief (5-10min) [id number] 12/02/19 11 ALEXA BANEGAS Non-Physician Phone Call To Patient/Provider Brief (5-10min) Non-Physician Phone Call To Patient/Provider Brief (5-10min) [id number] 12/01/19 11 ALEXA BANEGAS Non-Physician Phone Call To Patient/Provider Brief (5-10min) Non-Physician Phone Call To Patient/Provider Brief (5-10min) [id number] 11/27/19 11 ALEXA BANEGAS Non-Physician Phone Call To Patient/Provider Brief (5-10min) Non-Physician Phone Call To Patient/Provider Brief (5-10min) [id number] 11/24/19 11 ALEXA BANEGAS Non-Physician Phone Call To Patient/Provider Brief (5-10min) Non-Physician Phone Call To Patient/Provider Brief (5-10min) [id number] 08/13/20 10 COLEEN ATKINS [facility] Screening papanicolaou smear; obtaining, preparing and conveyance of cervical or vaginal smear to laboratory 08/18/20 09 RAMIREZ DANIEL [facility] Obstetrical Services Care Visit Obstetrical Services Care Visit [id number] 08/18/20 09 RAMIREZ DANIEL OB Services Antepartum Care Only Subsequent Single Visit OB Services Antepartum Care Only Subsequent Single Visit [id number] 07/01/20 09 ROSA SPARKS OB Services Antepartum Care Only Subsequent Single Visit OB Services Antepartum Care Only Subsequent Single Visit [id number] 06/26/20 09 RAMIREZ DANIEL OB Services Antepartum Care Only Subsequent Single Visit OB Services Antepartum Care Only Subsequent Single Visit [id number] 06/17/20 09 DOT CARLTON OB Services Antepartum Care Only Subsequent Single Visit OB Services Antepartum Care Only Subsequent Single Visit [id number] 06/10/20 09 ROSA SPARKS OB Services Antepartum Care Only Subsequent Single Visit OB Services Antepartum Care Only Subsequent Single Visit [id number] 05/29/20 09 NANDINI ROLON OB Services Antepartum Care Only Subsequent Single Visit OB Services Antepartum Care Only Subsequent Single Visit [id number] 05/06/20 09 DARREN ROWAN Enrique [facility] Antepartum Care Only Subsequent Single Visit OB Services Antepartum Care Only Subsequent Single Visit [id number] 04/10/20 09 DARREN ROWAN [facility] Antepartum Care Only Subsequent Single Visit OB Services Antepartum Care Only Subsequent Single Visit [id number] 02/13/20 09 NANDINI ROLON [facility] Antepartum Care Only First Visit, With Report OB Services Antepartum Care Only First Visit, With Report [id number] 01/16/20 09 DOT CARLTON [facility] (2 or More Individuals) Each 30 Minutes [facility] (2 or More Individuals) Each 30 Minutes 85014 11/29/19 09 JEOVANY OWENS Urine HCG, Test Urine HCG, Test 62826 11/19/20 08 ANNABELLE ELMORE [facility] Skin Test Anergy tuberculin Skin Test Anergy tuberculin 98520 02/07/20 08 EMMY BATRES [facility] Skin Test Anergy tuberculin Skin Test Anergy tuberculin 74791 09/11/20 07 BHARAT CUMMINGS Screening papanicolaou smear; obtaining, preparing and conveyance of cervical or vaginal smear to laboratory 09/04/20 07 NANDINI ROLON Skin Test Anergy Tuberculin Intradermal Skin Test Anergy Tuberculin Intradermal 23855 11/28/19 07 BHARAT CUMMINGS Prescription And Fitting Bilateral Corneal Lenses (Not For Aphakia) Prescription And Fitting Bilateral Corneal Lenses (Not For Aphakia) 89029 02/19/20 06 [facility] Ophthalmological New Patient Start Comprehensive Care Ophthalmological New Patient Start Comprehensive Care 54171 02/19/20 06 [facility] Visual Deluca Test Intermediate Examination Visual Deluca Test Intermediate Examination 92956 02/19/20 06 [facility] Determination Of Refractive State Determination Of Refractive State 96341 02/19/20 06 [facility] Screening papanicolaou smear; obtaining, preparing and conveyance of cervical or vaginal smear to laboratory 06/10/20 05 ALEXY ODELL [facility] Waiver services; not otherwise specified (NOS) MEDARDO BOYER [facility] Non-Physician Phone Call To Patient/Provider Brief (5-10min) Non-Physician Phone Call To Patient/Provider Brief (5-10min) [id number] DEEPTI GUDINO [facility] Skin Biopsy Technique Punch Single Lesion Skin Biopsy Technique Punch Single Lesion [id number] PRADEEP STEWART [facility] Intralesional Injections - Up To Seven Intralesional Injections - Up To Seven [id number] PRADEEP STEWART [facility] Wrist hand orthosis, wrist extension control cock-up, non molded, prefabricated, [id number] ZOEY MORGAN [facility] Non-Physician Phone Call To Pt/Provider Intermed (11-20 min) Non-Physician Phone Call To Pt/Provider Intermed (11-20 min) [id number] LON MAYA [facility] Non-Physician Phone Call To Pt/Provider Lengthy (21-30 min) Non-Physician Phone Call To Pt/Provider Lengthy (21-30 min) [id number] LON MAYA Screening papanicolaou smear; obtaining, preparing and conveyance of cervical or vaginal smear to laboratory BJ MOCK [facility] Social History Combined list of available smoking, tobacco, and other social history from [facility] facilities. Social History Type Response Date Comment Sour e Female 03/04/2023 Ambulatory Pha rmacy Tobacco Never-cigarette user Cigarette use:. Never-other tobacco user (not cigarettes) Other Tobacco use:. Ambulatory Pharmacy Sexual Orientation Ambula tory Pharmacy Gender identity Ambulator y Pharmacy This section is an empty social history section. [facility] Assessment and Plan Combined list of future care activities from Department of Defense and Veterans Affairs facilities (e.g., assessment and plan notes, appointments, orders, and referrals). Additional future care activities may be listed in the Plan of Care section. Result Assessment and Plan Date Source Assessment and Plan Extracted from:Title : 0055 [facility] ED follow-up Author: MAHENDRA SANCHEZ NP Date: 11/08/24 1.?Chest pain Presents for ED follow-up for chest pain that began yesterday.? EKGs done x2-WNL. Diagnosed with chest pain and costochondritis. Recommended to?follow-up with Cardiology by?ED?staff. She? has a?pending appt in?Dec. She was given Motrin for costochondritis and discharged home. Currently not experiencing any CP, SOB. Heart sounds NSR.? ? - referral placed to Cardiology - ED for SOB, CP, lightheadedness, syncope.? - f/u after referral? Ordered: Referral Request 2.0 - DoD ? Extracted from:Title: 0055 [facility] right leg pain Author: MAHENDRA SANCHEZ NP Date: 10/22/24 1.?Pain in right leg Sharp pain to anterior thigh that is intermittent s/p recent fall. She has feelings as if her leg will go out and reports having to ambulate carefully to prevent falling. Pain presents similarly to?pain experienced in the past s/p fall sustained?in February?2023. She?underwent physical therapy with reported improvement.?Pain is 7/10. Improved by massage, rest. Worsened by walking, standing for periods of time. Current episode?of pain?has been ongoing x 3 weeks. Denies radicular sxs or paresthesias down right leg.? Denies chronic use of steroids. PE remarkable for point tenderness to right greater trochanter. ? - ortho referral for potential CSI for bursitis injection - trial meloxicam 15mg daily x 2 weeks for pain relief - XR hip/pelvis d/t falls and feelings of giving way - MFR written to obtain temporary closer parking for work - will call with results? ? 20? minutes total time spent on evaluation and management. ? ? Mahendra Sanchez R., Enio, CELEBRITY MANAGER-C [facility] [place] [phone] ? Ordered: Referral Request 2.0 - DoD ? Orders: meloxicam(meloxicam 15 mg oral tablet), 1 tab(s), Oral, Daily, # 30 tab(s), 0 total refill(s), Maintenance, 1 tab(s) Oral Daily, Pharmacy: [facility] [Last filled 10/22/24] XR Hip w/ Pelvis 2 or 3 Views Right Extracted from:Title: 0055 [facility] ER f/u for toe sprain Author: TACOS DEVINE PA Date: 06/22/24 1.?Toe sprain 49 y/o?F?presents to clinic for ER f/u for L toe sprain 4wks. Pt was given a boot? in the ER. On exam, Pt still has TTP at proximal phalanx, no edema/erythema. Pt has full ROM of toes. Strength 5/5. ? ? -get repeat imaging to ensure no true fx/healed bone -If no pain with walking pt should be good to get off boot, however if there is still a lot pain would recommend wearing the boot for prolonged walking activities -Pt can continue icing foot as needed -Will call pt if XR comes back normal ? ? Tacos Devine, 1st Lt, ?PA-C [facility] [place] [place] [address] ? Orders: XR Foot Weight Bearing 3+ Left Extracted from:Title: 0055 [facility] Pain in Right Leg Author: ZOEY MORGAN PA Date: 03/16/24 1.?Pain in right leg 49 y/o F w/hx of right thigh pain and intermittent weakness for the past month w/o any particular injury.? Suspect muscular deconditioning vs strain of her quad.? Pt also has lower back pain and spasms likely also due to muscular deconditioning.? On exam the patient had Decreased lower extremity movement along with lower back tightness and muscle spasms.? Patient also had direct pain on the greater trochanters bilaterally.? Likely due to trochanteric bursitis. ? -Placed consult for physical therapy. -Follow-up as needed. ? Please send referral to the following for continuity of care: [facility] [id number] [facility], [place] [address] ? Ordered: Referral Request 2.0 - DoD ? 2.?Dorsalgia, unspecified Same as above. Ordered: Referral Request 2.0 - DoD ? Extracted from:Title: [employer] Author: NERIS PORTER NP Date: 12/14/23 1.?Encounter for gynecological examination (general) (routine) without abnormal findings Over 50% of ?minute visit spent face to face with patient on education, reviewing history, and developing plan of care. Continue monthly BSE and yearly well woman exams.??Return to clinic in 1 year.? ? Exercise: 30 minutes of moderate exercise 5 days a week including cardio and strength training is recommended for a healthy lifestyle.?This should be in addition to your normal daily work/routine.??If you are trying to lose weight more exercise along with a healthy diet is recommended. ? Supplements/Vitamins: If you are not following, or able to follow a well-balanced diet indicated below due to personal or medical reasons, it is recommended you take a?multivitamin. This is especially important if you are trying to get as?women need additional folic acid before and during (400-1000 micrograms per day).??Daily calcium intake should be around 1200 mg per day?which is 120% of the recommended daily allowance if looking at food labels.??We recommend?Vitamin D3 2,000-3,000 international units a day?if you have not already been identified with an insufficiency or deficiency. ? Nutrition:?A healthy diet with protein, vegetables, fruits, grains, and dairy is advised. More information including example serving sizes can be found at?https://www.Maclearplate.gov/. ?These amounts are appropriate for individuals who get less than 30 minutes per day of moderate physical activity, beyond normal daily activities. Those who are more physically active may be able to consume more while staying within calorie needs. call?radiology after to schedule mammo for 03/14? Ordered: MG Mammo Paolo Screening Bilateral ? 2.?Other specified counseling due for shingles vaccine; f/u with immunizations to update ? ? [facility]? ? ? Extracted from:Title: 0055 [facility] Toe pain Author: ALEXA BANEGAS NP Date: 10/24/23 1.?Toe pain physical exam consistent with possible right fifth toe fracture.? We will order plain film imaging to rule out any displaced fracture.? We discussed this at length today and she is aware to wear a supportive, hard soled shoe and that she could also eneida tape her fifth toe to her fourth toe.? She can utilize feth-acj-[id number] ibuprofen and extra strength Tylenol as well as ice to the area frequently.? She will be contacted with results.Verbalizes understanding of instructions. 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 Recommend to follow up with MYLA Stephens on a regular basis as needed. - Addendum by GERALDINE COSTELLO PA-C on June 16, 2023 16:33:49 CDT work physical was completed on 06/10/2023 11/16/2024 Ambulatory Pharmacy Functional Status Combined list of recent functional and cognitive assessments recorded at [facility] (VA).VA Functional Meigs Measurement (FIM) Scale: 1 = Total Assistance (Subject = 0% +), 2 = Maximal Assistance (Subject = 25% +), 3 = Moderate Assistance (Subject = 50% +), 4 = Minimal Assistance (Subject = 75% +), 5 = Supervision, 6 = Modified Meigs (Device), 7 = Complete Meigs (Timely, Safely). Assessment Date/Time Source Assessment Type Assessment Skill Assessment Score Assessment Details No data available for this section
--- OUTSIDE RECORDS SUMMARY | 2024-11-16 09:58 | XMS_ITS | Encounter Summary ---
Author Organization [facility] Address [address] [place] [address]. [place], [place] [address] [place] [address] Care Team Providers Care Access Lead Name Role Phone Fernanda Berrios MD Primary Care Provider + Reason for Referral * Imaging (Routine) - Closed Specialty Diagnoses / Procedures Referred By Kari blandon Referred To Contact RADIOLOGY Diagnoses Paresthesia Procedures MRI CERV SPINE WO Fernanda Nazario MD 3 [facility] [id number] [place] [address] Phone: tel: fax: Referral ID Status Reason Start Date Expiration Date Visits Re quested Visits Authorized [id number] Closed 06/10/2020 12/07/2020 1 1 Reason for Visit * Imaging (Routine) - Closed Specialty Diagnoses / Procedures Referred By Kari blandon Referred To Contact RADIOLOGY Diagnoses Paresthesia Procedures MRI CERV SPINE WO Fernanda Nazario MD 3 [facility] [id number] [place] [address] Phone: tel: fax: Referral ID Status Reason Start Date Expiration Date Visits Re quested Visits Authorized [id number] Closed 06/10/2020 12/07/2020 1 1 Encounter Details Date Type Department Care Team (Late st Contact Info) Description 06/20/2020 7:21 AM CDT - 06/20/2020 11:59 PM CDT Hospital Encounter [facility] [place] [address] Fernanda Berrios MD [address] [facility] [address] [place] [address] Discharge Disposition: Home or Self Care (Routine Discharge) Social History Tobacco Use Types Packs/Day Years Used Date Smoking Tobacco: Never Assessed Comments Unknown Sex and Gender Information Value Date Recorded Sex Assigned at Not on file Legal Sex Female 8:29 PM CDT Gender Identity Female 07/19/2022 6:18 AM CDT Sexual Orientation Straight 07/19/2022 6: 18 AM CDT COVID-19 Exposure Response Date Recorded In the last month, have you been in contact with someone who was confirmed or suspected to have Coronavirus / COVID-19? No / Unsure 06/20/2020 7:20 AM CDT documented as of this encounter Plan of Treatment Not on file documented as of this encounter Procedures Procedure Name Priority Date/Time Associated Diagnosis Comments MRI CERV SPINE WO CON Routine 06/20/2020 9:08 AM CDT Paresthesia documented in this encounter Results * MRI CERV SPINE WO CON (06/20/2020 9:08 AM CDT) Anatomical Region Laterality Modality Spine Magnetic Resonan ce 06/20/2020 1:10 PM CDT Impressions 06/20/2020 1:20 PM CDT IMPRESSION: 1. ??Indeterminate bone findings related to the visualized portion of the sphenoid bone. 2. ??Multilevel cervical spine degenerative changes which are most advanced between C4-5 and C6-7. Interpreted By: Angelito Lozano MD, 06/20/2020 1:10 PM Narrative 06/20/2020 1:20 PM CDT Exam: MRI cervical spine No comparison or correlating x-ray. INDICATION: Left hand tingling intermittently since December 2019. TECHNIQUE: Noncontrast multiplanar multisequence imaging. FINDINGS: The visualized sphenoid bone appears more hyperintense on T1 and T2 than cervical spine bone marrow. ??Additionally, some mild heterogeneity in signal. ??Recommend CT follow-up to evaluate bone structure and integrity. ??The visualized posterior fossa and spinal cord are normal. ??Asymmetric degenerative disc disease posteriorly at C6-7. C2-3: Normal. C3-4: Small posterior osteophytes. ??Moderate disc bulge. ??Mild spinal stenosis. ??Bilateral foraminal stenosis. C4-5: Small posterior osteophytes. ??Large disc bulge somewhat asymmetric to the left side. ??Moderate spinal stenosis. ??No abnormal intramedullary signal. ??Bilateral foraminal stenosis. ??Mild ligamentum flavum hypertrophy. C5-6: Small posterior osteophytes. ??Mild ligamentum flavum hypertrophy. ??Large disc bulge. ??Moderate spinal stenosis. ??Bilateral foraminal stenosis. C6-7: Small posterior osteophytes. ??Large disc bulge. ??Mild spinal stenosis. ??Facet hypertrophy. ??Bilateral foraminal stenosis. C7-T1: Normal. Procedure Note Angelito Lozano MD - 06/20/2020 Exam: MRI cervical spine No comparison or correlating x-ray. INDICATION: Left hand tingling intermittently since December 2019. TECHNIQUE: Noncontrast multiplanar multisequence imaging. FINDINGS: The visualized sphenoid bone appears more hyperintense on T1 andT2 than cervical spine bone marrow. Additionally, some mild heterogeneityin signal. Recommend CT follow-up to evaluate bone structure andintegrity. The visualized posterior fossa and spinal cord are normal.Asymmetric degenerative disc disease posteriorly at C6-7. C2-3: Normal. C3-4: Small posterior osteophytes. Moderate disc bulge. Mild spinalstenosis. Bilateral foraminal stenosis. C4-5: Small posterior osteophytes. Large disc bulge somewhat asymmetricto the left side. Moderate spinal stenosis. No abnormal intramedullarysignal. Bilateral foraminal stenosis. Mild ligamentum flavumhypertrophy. C5-6: Small posterior osteophytes. Mild ligamentum flavum hypertrophy.Large disc bulge. Moderate spinal stenosis. Bilateral foraminalstenosis. C6-7: Small posterior osteophytes. Large disc bulge. Mild spinalstenosis. Facet hypertrophy. Bilateral foraminal stenosis. C7-T1: Normal. IMPRESSION: 1. Indeterminate bone findings related to the visualized portion of thesphenoid bone. 2. Multilevel cervical spine degenerative changes which are most advancedbetween C4-5 and C6-7. Interpreted By: Angelito Lozano MD, 06/20/2020 1:10 PM Fernanda Berrios MD MRI Final Re sult documented in this encounter Visit Diagnoses Diagnosis Paresthesia Disturbance of skin sensation documented in this encounter Care Teams Access Lead Relationship Specialty Start Date End Date Fernanda Berrios MD 3 [facility] [id number] [place], [place] [id number] PCP - General FAMILY PRACTICE 06/10/20 documented as of this encounter
--- OUTSIDE RECORDS SUMMARY | 2024-11-16 09:58 | XMS_ITS | Encounter Summary ---
Author Organization [facility] Address [address] [place] [address]. [place], [place] [id number] [place] [address] Care Team Providers Care Gyroscope Technician Name Role Phone Fernanda Berrios MD Primary Care Provider + Reason for Visit * Imaging (Routine) - Closed Specialty Diagnoses / Procedures Referred By Eimlyac t Referred To Contact RADIOLOGY Diagnoses Encounter for screening mammogram for malignant neoplasm of breast Procedures MG SCREENING W SYBIL JONATHAN DIGI Fernanda Berrios MD 3 [facility] [address] [place] [address] Phone: tel: fax: Referral ID Status Reason Start Date Expiration Date Visits Re quested Visits Authorized [id number] Closed 07/07/2020 08/07/2021 1 1 Encounter Details Date Type Department Care Team (Late st Contact Info) Description 07/11/2020 8:30 AM CDT - 07/11/2020 11:59 PM T Hospital Encounter [facility] [address] [place], [place] [id number] Fernanda eBrrios MD 3 [facility] [address] [place] [address] Discharge Disposition: Home or Self Care (Routine [...] have Coronavirus / COVID-19? No / Unsure 07/11/2020 8:40 AM CDT documented as of this encounter Plan of Treatment Not on file documented as of this encounter Procedures Procedure Name Priority Date/Time Associated Diagnosis Comments MG SCREENING W SYBIL JONATHAN DIGI Routine 07/11/2020 9:11 AM CDT Encounter For Screening Mammogram For Malignant Neoplasm Of Breast documented in this encounter Results * MG SCREENING W SYBIL JONATHAN DIGI (07/11/2020 9:11 AM CDT) Anatomical Region Laterality Modality Breast Bilateral Mammography 07/11/2020 10:3 2 AM CDT Impressions 07/11/2020 10:33 AM CDT IMPRESSION: No suspicious change since 06/13/2019. Recommendation: 1: Routine screening mammogram ??Bilateral ?? in 1 Year Assessment: ACR BI-RADS Category 2 - Benign. Narrative 07/11/2020 10:33 AM CDT Examination: Digital screening mammogram with CAD. Clinical history: Asymptomatic patient presents for routine screening. Comparison: 06/13/2019. Technique: Bilateral digital mammograms. The exam was interpreted with the use of a computer-aided detection (CAD) system. ??Additional 3-D tomosynthesis images were acquired. Tissue density: The breast tissue is heterogeneously dense. Findings: The breast tissue is heterogeneously dense. The dense tissue may obscure some lesions mammographically. ?? Benign-appearing calcification noted. No suspicious mass, microcalcification or area of architectural distortion can be identified. From a mammographic standpoint, routine followup in one year would seem adequate. us Fernanda Berrios MD MAMMO Final Re sult documented in this encounter Visit Diagnoses Not on filedocumented in this encounter Care Teams Gyroscope Technician Relationship Specialty Start Date End Date Fernanda Berrios MD 3 [facility] [address] [place] [address] PCP - General FAMILY PRACTICE 06/10/20 documented as of this encounter
--- OUTSIDE RECORDS SUMMARY | 2024-11-16 09:58 | XMS_ITS | Encounter Summary ---
Author Organization [facility] Address [address] [place] [address]. [place], [place] [id number] [place] [address] Care Team Providers Care Sonoscope Operator Name Role Phone Fernanda Berrios MD Primary Care Provider + Encounter Details Date Type Department Care Team (Latest Contact Info) Description 07/19/2022 Travel Social History Tobacco Use Types Packs/Day Years Used Date Smoking Tobacco: Never Smokeless Tobacco: Never Alcohol Use Standard Drinks/Week Comments Not Currently 0 (1 standard drink = 0.6 oz pur e alcohol) PHQ-2 Answer Date Recorded PHQ-2 Score - If the patient scores above 3, please move on to questions 3-9 0 07/19/2022 Exercise Vital Sign Answer Date Recorde d On average, how many days pe r week do you engage in moderate to strenuous exercise (like a brisk walk)? 4 days 09/05/2020 On average, how many minutes do you engage in exercise at this level? 30 min 09/05/2020 Education Answer Date Recorded What is the highest level of school you have completed or the highest degree you have received? Bachelor's degree (e.g., BA, AB, BS) 09/05/2020 Comments Unknown Sex and Gender Information Value Date Recorded Sex Assigned at Not on file Legal Sex Female 8:29 PM CDT Gender Identity Female 07/19/2022 6:18 AM CDT Sexual Orientation Straight 07/19/2022 6: 18 AM CDT Occupation Industry Job Start Date Job End Date Not on file Not on file Not on file Not on file COVID-19 Exposure Response Date Recorded In the last 10 days, have yo u been in contact with someone who was confirmed or suspected to have Coronavirus/COVID-19? No / Unsure 07/19/2022 9:40 AM CDT documented as of this encounter Plan of Treatment Not on file documented as of this encounter Visit Diagnoses Not on filedocumented in this encounter Care Teams Sonoscope Operator Relationship Specialty Start Date End Date Fernanda Berrios MD 3 [facility] [id number] [place] [address] PCP - General FAMILY PRACTICE 06/10/20 documented as of this encounter
--- OUTSIDE RECORDS SUMMARY | 2024-11-16 09:58 | XMS_ITS | Encounter Summary ---
Author Organization [facility] Address [address] [place] [address]. [place], [place] [address] [place] [address] Care Team Providers Care Textile Scrap Salvager Name Role Phone Fernanda Berrios MD Primary Care Provider + Encounter Details Date Type Department Care Team (Latest Contact Info) Description 09/05/2020 Travel Social History Tobacco Use Types Packs/Day Years Used Date Smoking Tobacco: Never Smokeless Tobacco: Never Alcohol Use Standard Drinks/Week Comments Not Currently 0 (1 standard drink = 0.6 oz pur e alcohol) Exercise Vital Sign Answer Date Recorde d [...] have Coronavirus / COVID-19? No / Unsure 09/05/2020 10:09 AM CDT documented as of this encounter Plan of Treatment Not on file documented as of this encounter Visit Diagnoses Not on filedocumented in this encounter Care Teams Textile Scrap Salvager Relationship Specialty Start Date End Date Fernanda Berrios MD 3 [facility] [address] [place] [address] PCP - General FAMILY PRACTICE 06/10/20 documented as of this encounter
--- OUTSIDE RECORDS SUMMARY | 2024-11-16 09:58 | XMS_ITS | Clinical Summary ---
Author Organization [facility] Address [address] [place] [address]. [place] [address] [place] [address] Care Team Providers Care Piper Helper Name Role Phone Fernanda Berrios MD Primary Care Provider + Allergies No known active allergies Medications Cholecalciferol (VITAMIN D) 50 MCG (1999) Tab Take 1 tablet by mouth daily. Active Magnesium 400 MG Cap Take 400 mg by mouth daily. Active Active Problems Problem Noted Date Diagnosed Date Colon cancer screening 09/20/2022 Overview (09/20/2022): Added automatically from request for surgery [id number] Myofascial pain 09/05/2020 Family History Medical History Relation Comments Diabetes Father Heart Disease Father Hypertension Father Breast Cancer Maternal Grandmother No Known Problems Mother Relation Status Comments Father Maternal Grandmother Mother Alive Social History Tobacco Use Types Packs/Day Years Used Date Smoking Tobacco: Never Smokeless Tobacco: Never Tobacco Cessation:Counseling Given: No Alcohol Use Standard Drinks/Week Comments Not Currently [...] file Not on file Not on file Last Filed Vital Signs Vital Sign Reading Time Taken Comments Blood Pressure 120/86 10/11/2022 2:36 PM CONSTRUCTION PIT WORKER Pulse 92 10/11/2022 2:36 PM CONSTRUCTION PIT WORKER Temperature 37.2 ??C (98.9 ??F) 10/11/2022 2:36 PM CS T Respiratory Rate 18 10/04/2022 11:50 AM CONSTRUCTION PIT WORKER Oxygen Saturation 100% 10/11/2022 2:36 PM CONSTRUCTION PIT WORKER Inhaled Oxygen Concentration - - Weight 64.9 kg (143 lb) 10/11/2022 2:36 PM CONSTRUCTION PIT WORKER Height 172.7 cm (5' 8 ) 10/11/2022 2:36 PM CONSTRUCTION PIT WORKER Body Mass Index 21.74 10/11/2022 2:36 PM CONSTRUCTION PIT WORKER Plan of Treatment Health Maintenance Due Date Last Done Comments Cervical Cancer Screening Pa p Smear (Age 30 to 64) Every 3 Years 1973 Annual Physical 1976 Hepatitis C 1991 DTaP, Tdap and Td Vaccines ( 1 - Tdap) 1992 Hepatitis B Vaccines (1 of 3 - 19+ 3-dose series) 1992 Cervical Cancer Screening Pa p with HPV Testing (Age 30 to 64) Every 5 Years 2003 Cervical Cancer Screening wi th HPV 2003 Mammogram Screening 07/11/2022 07/11/2020 Zoster Vaccines (1 of 2) 2023 COVID-19 Vaccine (2023-2 5 season) 2024 02/11/2021, 01/20/2021 Influenza Adult (#1) 2024 Colorectal Cancer Screening Colonoscopy (10 Years) 10/04/2032 10/04/2022, 10/04/2022 Meningococcal Vaccine Aged Out No tangela liseth eligible based on patient's age to complete this topic Pneumococcal Vaccine: Pediatrics (0 to 5 Years) and At-Risk Patients (6 to 64 Years) Aged Out No longer eligible b ased on patient's age to complete this topic RSV Immunizations Under 20 Months Aged Out No longer eligible b ased on patient's age to complete this topic Procedures Procedure Name Priority Date/Time Associated Diagnosis Comments COLONOSCOPY Routine 10/04/2022 10:05 AM CONSTRUCTION PIT WORKER MG SCREENING W SYBIL JONATHAN DIGI Routine 07/11/2020 9:11 AM CDT Encounter For Screening Mammogram For Malignant Neoplasm Of Breast from Last 3 Months or Most Recently Relevant to Health Maintenance Results * MG SCREENING W SYBIL JONATHAN [...] followup in one year would seem adequate. Fernanda Berrios MD MAMMO Final Re sult from Last 3 Months or Most Recently Relevant to Health Maintenance Insurance [employer] Care Teams Piper Helper Relationship Specialty Start Date End Date Fernanda Berrios MD 3 [facility] [address] [place] [address] PCP - General FAMILY PRACTICE 06/10/20
--- OUTSIDE RECORDS SUMMARY | 2024-11-16 09:58 | XMS_ITS | Encounter Summary ---
Author Organization [facility] Address [address] [place] [address]. [place], [place] [id number] [place] [address] Care Team Providers Care Electrophysiology Technologist Name Role Phone Fernanda Berrios MD Primary Care Provider + Reason for Referral * Surgical (Routine) - Closed Specialty Diagnoses / Procedures Referred By Kari blandon Referred To Contact Diagnoses Colon cancer screening Procedures Case request operating room: COLONOSCOPY Fernandez Stone MD [address] [place] [address] [address] [place] [address] Phone: tel: fax: Referral ID Status Reason Start Date Expiration Date Visits Re quested Visits Authorized [id number] Closed 09/20/2022 09/17/2023 1 1 Encounter Details Date Type Department Care Team (Late st Contact Info) Description 09/17/2022 Orders Only [facility] Multispecialty Care - [address] [place] [id number] Fernandez Stone MD 3 [facility] [address] [place], [place] [id number] Social History Tobacco Use Types Packs/Day Years [...] file Not on file Not on file documented as of this encounter Plan of Treatment Scheduled Orders Name Type Priority Associated Diagnoses Orde r Schedule Case request operating room: COLONOSCOPY Case Request Routine Colon cancer screening Ordered: 09/20/2022 documented as of this encounter Visit Diagnoses Diagnosis Colon cancer screening- Primary Special screening for malignant neoplasms, colon documented in this encounter Care Teams Electrophysiology Technologist Relationship Specialty Start Date End Date Fernanda Berrios MD 3 [facility] [address] [place] [address] PCP - General FAMILY PRACTICE 06/10/20 documented as of this encounter
--- OUTSIDE RECORDS SUMMARY | 2024-11-16 09:58 | XMS_ITS | Encounter Summary ---
Author Organization [facility] Address [address] [place] [address]. [place], [place] [address] [place] [address] Care Team Providers Care Energy Projects Lead Name Role Phone Fernanda Beriros MD Primary Care Provider + Encounter Details Date Type Department Care Team (Late st Contact Info) Description 09/09/2020 Telephone [facility] [place] [address] [id number] Audrey Perry RN Social History Tobacco Use Types Packs/Day Years [...] AM CDT documented as of this encounter Progress Notes * Audrey Perry RN - 09/09/2020 8:11 AM CDTSummary: telephone Faxed order for physical therapy to [facility] in [place]. documented in this encounter Plan of Treatment Not on file documented as of this encounter Visit Diagnoses Not on filedocumented in this encounter Care Teams Energy Projects Lead Relationship Specialty Start Date End Date Fernanda Berrios MD 3 [facility] [address] [place] [address] PCP - General FAMILY PRACTICE 06/10/20 documented as of this encounter
--- OUTSIDE RECORDS SUMMARY | 2024-11-16 09:58 | XMS_ITS | Encounter Summary ---
Author Organization [facility] Address [address] [place] [address]. [place] [address] [place] [address] Care Team Providers Care Business Manager Name Role Phone Unavailable Primary Care Provider Unavailabl e Encounter Details Date Type Department Care Team (Late st Contact Info) Description 07/05/[address] [facility] [place] [address] , Alexy Torres MD Social History Tobacco Use Types Packs/Day Years Used Date Smoking Tobacco: Never Assessed Comments Unknown Sex and Gender Information Value Date Recorded Sex Assigned at Not on file Legal Sex Female 8:29 PM CDT Gender Identity Female 07/19/2022 6:18 AM CDT Sexual Orientation Straight 07/19/2022 6: 18 AM CDT documented as of this encounter Plan of Treatment Not on file documented as of this encounter Visit Diagnoses Not on filedocumented in this encounter
--- OUTSIDE RECORDS SUMMARY | 2024-11-16 09:58 | XMS_ITS | Encounter Summary ---
Author Organization [facility] Address [address] [place] [address]. [place], [place] [address] [place] [address] Care Team Providers Care Java J2Ee Architect Name Role Phone Fernanda Berrios MD Primary Care Provider + Encounter Details Date Type Department Care Team (Latest Contact Info) Description 10/11/2022 Travel Social History Tobacco Use Types Packs/Day [...] suspected to have Coronavirus/COVID-19? No / Unsure 10/11/2022 2:22 PM CALCULATING MACHINE OPERATOR documented as of this encounter Plan of Treatment Not on file documented as of this encounter Visit Diagnoses Not on filedocumented in this encounter Care Teams Java J2Ee Architect Relationship Specialty Start Date End Date Fernanda Berrios MD 3 [facility] [id number] [place] [address] PCP - General FAMILY PRACTICE 06/10/20 documented as of this encounter
--- OUTSIDE RECORDS SUMMARY | 2024-11-16 09:58 | XMS_ITS | Encounter Summary ---
Author Organization [facility] Address [address] [place] [address]. [place], [place] [phone] [place] [address] Care Team Providers Care Senior Software Qa Engineer Name Role Phone Fernanda Berrios MD Primary Care Provider + Reason for Visit * Auth/Cert Specialty Diagnoses / Procedures Referred By Kari blandon Referred To Contact Diagnoses Colon cancer screening screening colonoscopy Procedures COLONOSCOPY,DIAGNOSTIC COLONOSCOPY Chuck Stone MD [address] [address] Phone: tel: fax: Referral ID Status Reason Start Date Expiration Date Visits Re quested Visits Authorized [id number] 1 1 Encounter Details Date Type Department Care Team (Latest Contact Info) Description 10/04/2022 9:33 AM CARGO INSPECTOR - 10/04/2022 12:17 PM [facility] Hospital Encounter [facility] [place] [address] Chuck Stone MD [address] [phone] Discharge Disposition: Home or Self Care (Routine [...] suspected to have Coronavirus/COVID-19? No / Unsure 10/04/2022 9:33 AM CARGO INSPECTOR documented as of this encounter Last Filed Vital Signs Vital Sign Reading Time Taken Comments Blood Pressure 137/85 10/04/2022 11:50 AM CARGO INSPECTOR Pulse 76 10/04/2022 11:50 AM CARGO INSPECTOR Temperature 36.6 ??C (97.8 ??F) 10/04/2022 11:[address] Respiratory Rate 18 10/04/2022 11:50 AM CARGO INSPECTOR Oxygen Saturation 100% 10/04/2022 11:50 AM CARGO INSPECTOR Inhaled Oxygen Concentration - - Weight 62.6 kg (138 lb) 09/21/2022 4:04 PM CDT Height 172.7 cm (5' 8 ) 09/21/2022 4:04 PM CDT Body Mass Index 20.98 09/21/2022 4:04 PM CDT documented in this encounter Discharge Instructions * Discharge Instructions* Oly De La Vega RN - 10/04/2022 11:40 AM CARGO INSPECTOR Plan: Repeat screening colonoscopy in 10 years. O INSPECTOR * Attachments The following attachments cannot be sent through Care Everywhere. * Colonoscopy Discharge Instructions (Emirati) * General Anesthesia Discharge Instructions (Emirati) documented in this encounter Medications at Time of Discharge Cholecalciferol (VITAMIN D) 50 MCG (1999) Tab Take 1 tablet by mouth daily. Magnesium 400 MG Cap Take 400 mg by mouth daily. folic acid 400 MCG tablet Take 400 mcg by mouth daily. 2 Sod Picosulfate-Mag Ox-Cit Acd (CLENPIQ) 10-3.5-12 MG-GM -GM/160ML SolutionIndicati ons:Colon cancer screening Take 1 Bottle by mouth 2 (two) times daily. Take as directed by GI provider instructions 320 mL 07/19/2022 2 documented as of this encounter H&P Notes * Chuck Stone MD - 10/04/2022 10:18 AM CST GASTROENTEROLOGY H&P 10/04/2022 10:18 AM Reason for Consult: Screening colonoscopy History of Present Illness: Osman Aguilar is a 47-year-old initial screening colonoscopy Review of systems: General: no fever, chills, malaise, fatigue, weight loss or gain. HEENT: no acute changes in vision or hearing Respiratory: no shortness of breath, cough, sputum production, hemoptysis Cardiovascular: no chest pain, palpitations, orthopnea Gastrointestinal: as per HPI Genitourinary: no dysuria, hematuria, incontinence Musculoskeletal: no extremity edema, myalgia. Neuro: no dizziness, headache, seizures Hematology: no easy bruising, bleeding Skin: no new skin rashes or lesions. Patient Active Problem List Diagnosis ??? Myofascial pain ??? Colon cancer screening Past Medical History: Diagnosis Date ??? Bilateral headaches ??? Hot flashes ??? Migraines not any more eats healthier History reviewed. No pertinent surgical history. Family History Problem Relation Name Age of Onset ??? No Known Problems Mother ??? Hypertension Father ??? Diabetes Father ??? Heart Disease Father ??? Breast Cancer Maternal Grandmother 60 Social History Socioeconomic History ??? Marital status: Spouse name: Joaquín ??? Number of children: 4 ??? Years of education: Not on file ??? 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 Smoking status: Never ??? Smokeless tobacco: Never Vaping Use ??? Vaping Use: Never used Substance and Sexual Activity ??? Alcohol use: Not Currently ??? Drug use: Never ??? Sexual activity: Yes Other Topics Concern ??? Service Not Asked ??? Blood Transfusions Not Asked ??? Caffeine Concern Not Asked ??? Occupational Exposure Not Asked ??? Hobby Hazards Not Asked ??? Sleep Concern Not Asked ??? Stress Concern Not Asked ??? Weight Concern Not Asked ??? Special Diet Not Asked ??? Back Care Not Asked ??? Exercise Not Asked ??? Bike Helmet Not Asked ??? Seat Belt Not Asked ??? Self-Exams Not Asked ??? Wheelchair Not Asked ??? Walker Not Asked ??? Upper extremity braces/slings Not Asked ??? Lower extermity braces/slings Not Asked ??? Self Care Yes Social History Narrative Lives home with and 2 sons. Social Determinants of Health Financial Resource Strain: Not on file Food Insecurity: Not on file Transportation Needs: Not on file Physical Activity: Not on file Stress: Not on file Social Connections: Not on file Intimate Partner Violence: Not on file Housing Stability: Not on file No Known Allergies PHYSICAL EXAM: Filed Vitals: 09/21/22 1604 10/04/22 1002 10/04/22 1005 BP: (!) 131/100 (!) 140/101 Pulse: 78 Resp: 21 Temp: 97 ??F (36.1 ??C) TempSrc: Temporal SpO2: 100% Weight: 62.6 kg (138 lb) Height: 5' 8 (1.727 m) Wt Readings from Last 3 Encounters: 09/21/22 62.6 kg (138 lb) 07/19/22 64 kg (141 lb) 09/05/20 64.2 kg (141 lb 9.6 oz) ? Assessment and Plan: Screening colonoscopy The procedural risks, benefits, alternatives were discussed fully with the patient, including the risks of complications of bleeding, infection, bowel injury or perforation, anesthesia related risks but not limited to the above. Post complication remedies could include hospitalization, antibiotics,surgery or even the remote possibility of . The patient verbalized understanding of the risks and wishes to proceed. Thank you for this consult. Please do not hesitate to contact us with further questions. CHUCK STONE MD Voice recognition software utilized O INSPECTOR documented in this encounter OR Notes * Op Note - Chuck Stone MD - 10/04/2022 11:33 AM CST [facility] OpNote COLONOSCOPY Procedure Note Osman Aguilar 10/04/2022 0920 Procedure(s) (LRB): COLONOSCOPY (N/A) Surgeon(s): Chuck Stone MD Staff: GI Nurse: Loren Galeas RN quarry manager: Willem Stallworth, Elevator Operator Freight Anesthesia: General Anesthesiologist: Bobby Pnea MD ELECTRICAL SYSTEMS ENGINEER: Ana María Adam CRNA Pre-Op Diagnosis: screening colonoscopy Post-Op Diagnosis: Negative colonoscopy Procedure Description: Informed consent was obtained earlier. Patient was brought to the OR and placed in supine lateral decubitus position and sedated under MAC anesthesia. PCF 190 colonoscope was lubricated inserted into the rectum and advanced to the cecum. Bowel prep was excellent. Cecum was identified by the ileocecal valve and the appendiceal orifice. Terminal ileum was easily intubated found to be normal. Cecum normal. Ascending colon transverse colon descending colon sigmoid colon and rectum all carefully visualized upon withdrawal found to be normal. Rectum is quite narrow and it wasdifficult to retroflex. Mild hemorrhoids seen on the way out. Findings: Negative colon to cecum with excellent bowel prep. Mild hemorrhoids only. Plan: Repeat screening colonoscopy in 10 years. Complications: None. Estimated Blood Loss: None Specimens:* No orders in the log * Voice recognition software utilized. CHUCK STONE MD Date: 10/04/2022 Time: 11:33 AM Voice recognition software utilized. O INSPECTOR documented in this encounter Plan of Treatment Not on file documented as of this encounter Procedures Procedure Name Priority Date/Time Associated Diagnosis Comments COLONOSCOPY FLX DX W/COLLJ SPEC WHEN PFRMD 10/04/2022 11:04 AM CARGO INSPECTOR Colon cancer screening COLONOSCOPY Routine 10/04/2022 10:05 AM CARGO INSPECTOR documented in this encounter Visit Diagnoses Diagnosis Colon cancer screening- Primary Special screening for malignant neoplasms, colon documented in this encounter Admitting Diagnoses Diagnosis Colon cancer screening Special screening for malignant neoplasms, colon documented in this encounter Administered Medications Inactive Administered Medications - up to 3 most recent administrations Medication Order MAR Action Action Date Dose Rate Site lactated ringers infusion at 10 mL/hr, Intravenous, Continuous, Starting on Tue10/04/22 at 1030, Until Tue10/04/22 at 1418, Infuse at TKO rate, Pre-Op New Bag 10/04/2022 11:05 AM CARGO INSPECTOR documented in this encounter Active and Recently Administered Medications Times are shown in CARGO INSPECTOR. Continuous Medication Order 10/02/2022 10/03/2022 10/04/2022 lactated ringers infusion at 10 mL/hr, Intravenous, Continuous, Starting on Tue10/04/22 at 1030, Until Tue10/04/22 at 1418, Infuse at TKO rate, Pre-Op 1105 (New Bag - Prov ider: Ana María Adam CRNA)1126 (Infusion Stop Time - Provider: Ana María Adam CRNA) documented in this encounter Care Teams Senior Software Qa Engineer Relationship Specialty Start Date End Date Fernanda Berrios MD 3 [facility] [address] [place] [address] PCP - General FAMILY PRACTICE 06/10/20 documented as of this encounter
--- OUTSIDE RECORDS SUMMARY | 2024-11-16 09:58 | XMS_ITS | Encounter Summary ---
Author Organization [facility] Address [address] [place] [address]. [place], [place] [id number] [place] [address] Care Team Providers Care Insurance Follow Up Representative Name Role Phone Fernanda Berrios MD Primary Care Provider + Encounter Details Date Type Department Care Team (Latest Contact Info) Description 09/21/2022 Travel Social History Tobacco Use Types Packs/Day [...] suspected to have Coronavirus/COVID-19? No / Unsure 09/21/2022 4:05 PM CDT documented as of this encounter Plan of Treatment Not on file documented as of this encounter Visit Diagnoses Not on filedocumented in this encounter Care Teams Insurance Follow Up Representative Relationship Specialty Start Date End Date Fernanda Berrios MD 3 [facility] [id number] [place] [address] PCP - General FAMILY PRACTICE 06/10/20 documented as of this encounter
--- OUTSIDE RECORDS SUMMARY | 2024-11-16 09:58 | XMS_ITS | Encounter Summary ---
Author Organization [facility] Address [address] [place] [address]. [place] [address] [place] [address] Care Team Providers Care Bleach Maker Name Role Phone Fernanda Gordon MD Primary Care Provider + Reason for Visit * Reason Comments New Patient No hx colon ca, poly ps, no family hx of polyps * Consultation/Treatment (Routine) - Closed Specialty Diagnoses / Procedures Referred By Kari blandon Referred To Contact GASTROENTEROLOGY Diagnoses Encounter for screening for malignant neoplasm of colon Noble Duque PA Phone: tel: fax: Fernandez Stone MD 3 [facility] [address] [place] [address] Phone: tel: fax: Referral ID Status Reason Start Date Expiration Date Visits Re quested Visits Authorized [id number] Closed 12/16/2021 12/16/2022 4 4 Encounter Details Date Type Department Care Team (Latest Contact Info) Description 07/19/2022 9:40 AM CDT Office Visit [facility] Multispecialty Care - [facility] [address] [facility] [place] [address] Cindy Cortés NP 3 [facility] [address] [place], [place] [id number] New Patient (No hx colon ca, polyps, no family hx of polyps ) Social History Tobacco Use Types Packs/Day Years [...] AM CDT documented as of this encounter Last Filed Vital Signs Vital Sign Reading Time Taken Comments Blood Pressure 127/85 07/19/2022 9:55 AM CDT Pulse 87 07/19/2022 9:55 AM CDT Temperature 37.1 ??C (98.7 ??F) 07/19/2022 9:55 AM CD T Respiratory Rate - - Oxygen Saturation 97% 07/19/2022 9:55 AM CDT Inhaled Oxygen Concentration - - Weight 64 kg (141 lb) 07/19/2022 9:55 AM CDT Height 172.7 cm (5' 8 ) 07/19/2022 9:55 AM CDT Body Mass Index 21.44 07/19/2022 9:55 AM CDT documented in this encounter Patient Instructions * Patient Instructions* Cindy Cortés BUSINESS PROCESS MODELER - 07/19/2022 9:40 AM CDT It is recommended to consume 20-35 grams of fiber per day and at least 64 ounces/2 liters of water per day. Below are the common foods with fiber content listed for you. This will help with normal bowel movements. ?? 2018 [employer] [place] and/or its affiliates. All Rights Reserved. Amount of fiber in different foods Food Serving Grams of fiber Fruits Apple (with skin) 1 medium apple 4.4 Banana 1 medium banana 3.1 Oranges 1 orange 3.1 Prunes 1 cup, pitted 12.4 Juices Apple, unsweetened, with added ascorbic acid 1 cup 0.5 Grapefruit, white, canned, sweetened 1 cup 0.2 Grape, unsweetened, with added ascorbic acid 1 cup 0.5 [place] 1 cup 0.7 Vegetables Cooked Green beans 1 cup 4.0 Carrots 1/2 cup sliced 2.3 Peas 1 cup 8.8 Potato (baked, with skin) 1 medium potato 3.8 Raw [place] (with peel) 1 cucumber 1.5 Lettuce 1 cup shredded 0.5 Tomato 1 medium tomato 1.5 Spinach 1 cup 0.7 Legumes Baked beans, canned, no salt added 1 cup 13.9 Kidney beans, canned 1 cup 13.6 [place]oudreaux beans, canned 1 cup 11.6 Lentils, boiled 1 cup 15.6 Breads, pastas, flours Bran muffins 1 medium muffin 5.2 Oatmeal, cooked 1 cup 4.0 White bread 1 slice 0.6 Whole-wheat bread 1 slice 1.9 Pasta and rice, cooked Macaroni 1 cup 2.5 Rice, brown 1 cup 3.5 Rice, white 1 cup 0.6 Spaghetti (regular) 1 cup 2.5 Nuts Almonds 1/2 cup 8.7 Peanuts 1/2 cup 7.9 To learn how much fiber and other nutrients are in different foods, visit the [place] Department of Agriculture (USDA) National Nutrient Database at: http://www.nal.usda.gov/fnic/foodcomp/search/. Created using data from the USDA National Nutrient Database for Standard Reference. Available at http://www.nal.usda.gov/fnic/foodcomp/search/. Graphic 72960 Version 4.0 documented in this encounter Progress Notes * Cindy Cortés NP - 07/19/2022 9:40 AM CDT Images from the original note were not included. Gastroenterology Initial Visit Reason for Visit: New Patient (No hx colon ca, polyps, no family hx of polyps ) History of Present Illness: Osman Aguilar is a 47-year-old female being seen in clinic for referral by FERNANDA GORDON MD for initial screening colonoscopy. Bowel habits are daily to 2 times per day. Magnesium supplements taken at times with headaches. No meats in diet eats beans and nuts. More greens and smoothies. No constipation or diarrhea, no hematochezia or melena. No weight loss. No nausea, vomiting, dysphagia, abdominal pain, heart burn or acid reflux. Appropriate appetite. Prior abdominal surgeries: none. No colonoscopies or EGDs in the past. No prior h/o hepatitis, no prior tattoos, no prior blood transfusions, no drug use, no ETOH use, and no smoking. No family history of GI/Colon Cancer. NSAID/Blood thinner use: none ROS: Review of Systems Constitutional: Negative for chills, fever and malaise/fatigue. Negative for decreased appetite HENT: Negative for sore throat. Eyes: Glasses Respiratory: Negative for shortness of breath. Cardiovascular: Negative for chest pain and leg swelling. Gastrointestinal: Refer to HPI. Musculoskeletal: Negative for joint pain. Neurological: Vertigo at times Endo/Heme/Allergies: Does not bruise/bleed easily. Psychiatric/Behavioral: Negative for depression. The patient is not nervous/anxious. Medications: Current Outpatient Medications: ??? Cholecalciferol (VITAMIN D) 50 MCG (1999 UT) Tab, Take 1 tablet by mouth daily., Disp: , Rfl: ??? Magnesium 400 MG Cap, Take 400 mg by mouth daily., Disp: , Rfl: ??? Sod Picosulfate-Mag Ox-Cit Acd (CLENPIQ) 10-3.5-12 MG-GM -GM/160ML Solution, Take 1 Bottle by mouth 2 (two) times daily. Take as directed by GI provider instructions, Disp: 320 mL, Rfl: 0 ??? folic acid 400 MCG tablet, Take 400 mcg by mouth daily., Disp: , Rfl: Allergies: No Known Allergies Medical History: Past Medical History: Diagnosis Date ??? Bilateral headaches ??? Hot flashes ??? Migraines not any more eats healthier Surgical History: History reviewed. No pertinent surgical history. Social History: Social History Tobacco Use ??? Smoking status: Never Smoker ??? Smokeless tobacco: Never Used Vaping Use ??? Vaping Use: Never used Substance Use Topics ??? Alcohol use: Not Currently ??? Drug use: Never Family History: Family History Problem Relation Name Age of Onset ??? No Known Problems Mother ??? Hypertension Father ??? Diabetes Father ??? Heart Disease Father ??? Breast Cancer Maternal Grandmother 60 PE: Filed Vitals: 07/19/22 0955 BP: 127/85 Pulse: 87 Temp: 98.7 ??F (37.1 ??C) SpO2: 97% Weight: 64 kg (141 lb) Height: 5' 8 (1.727 m) Physical Exam Constitutional: General: She is not in acute distress. Appearance: Normal appearance. She is well-developed. She is not ill-appearing. Cardiovascular: Rate and Rhythm: Normal rate and regular rhythm. Pulmonary: Effort: No respiratory distress. Breath sounds: Normal breath sounds. Abdominal: General: Bowel sounds are normal. There is no distension. Palpations: Abdomen is soft. There is no mass. Tenderness: There is no abdominal tenderness. There is no guarding or rebound. Hernia: No hernia is present. Musculoskeletal: Right lower leg: No edema. Left lower leg: No edema. Skin: General: Skin is warm and dry. Neurological: Mental Status: She is alert and oriented to person, place, and time. Psychiatric: Mood and Affect: Mood normal. Behavior: Behavior normal. Labs Reviewed: No results found for: WBC, RBC, HGB, HCT, RDW, PLT, NA, K, CL, AGAP, GLU, BUN, CR, GFRNON, GFR, CA,MAGNESIUM, ALB, ALT, AST, ALKP Endoscopic Results Reviewed: Never performed. Diagnoses/Impression: Colon cancer screening (primary encounter diagnosis) 1. Average colon cancer risk: No personal history of colon polyps. No family history of colon cancer. No smoking history. No GI complaints. Proceed with colonoscopy as scheduled 2. Comorbid Conditions: Bilateral headaches, hot flashes, migraines Recommendations and Plan: ?? Schedule initial screening colonoscopy ?? Suprep split prep ?? It is recommended to consume 20-35 grams of fiber per day and at least 64 ounces/2 liters of water per day. ?? All questions answered ?? More recommendations to follow endoscopic evaluation, requests 1 week follow up Orders placed this encounter: Orders Placed This Encounter ??? Sod Picosulfate-Mag Ox-Cit Acd (CLENPIQ) 10-3.5-12 MG-GM -GM/160ML Solution Risks/Benefits/Options: Patient presented with risks (can include but are not limited to: discomfort, missing lesions, allergic or adverse reaction to the sedation, perforation of the bowel or upper GI tract which may require hospitalization and surgery, bleeding, infection, aspiration), benefits, and alternatives to the procedure(s) and are in agreement to proceed as planned. Cindy Cortés NP 07/19/2022 documented in this encounter Plan of Treatment Not on file documented as of this encounter Visit Diagnoses Diagnosis Colon cancer screening- Primary Special screening for malignant neoplasms, colon documented in this encounter Care Teams Bleach Maker Relationship Specialty Start Date End Date Fernanda Gordon MD [address] [place] [address] [address] [place] [address] PCP - General FAMILY PRACTICE 06/10/20 documented as of this encounter
--- OUTSIDE RECORDS SUMMARY | 2024-11-16 09:58 | XMS_ITS | Encounter Summary ---
Author Organization [facility] Address [address] [place] [address]. [place] [address] [place] [address] Care Team Providers Care Almond Blancher Name Role Phone Fernanda Gordon MD Primary Care Provider + Reason for Visit * Reason Comments Follow Up Post procedure--no c oncerns at this time * Consultation/Treatment (Routine) - Closed Specialty Diagnoses / Procedures Referred By Kari t Referred To Contact GASTROENTEROLOGY Diagnoses Encounter for screening for malignant neoplasm of colon Noble Duque PA Phone: tel: fax: Fernandez Stone MD 3 [facility] [place] [address] [place] [address] Phone: tel: fax: Referral ID Status Reason Start Date Expiration Date Visits Re quested Visits Authorized [id number] Closed 12/16/2021 12/16/2022 4 4 Encounter Details Date Type Department Care Team (Latest Contact Info) Description 10/11/2022 2:20 PM GLASS TOUGHENING OPERATOR Office Visit [facility] Medical Group Multispecialty Care - [facility] [address] [facility] [place] [address] Cindy Cortés NP 3 [facility] [place] [address] Follow Up (Post procedure--no concerns at this time) Social History Tobacco Use Types Packs/Day Years [...] Coronavirus/COVID-19? No / Unsure 10/11/2022 2:22 PM GLASS TOUGHENING OPERATOR documented as of this encounter Last Filed Vital Signs Vital Sign Reading Time Taken Comments Blood Pressure 120/86 10/11/2022 2:36 PM GLASS TOUGHENING OPERATOR Pulse 92 10/11/2022 2:36 PM GLASS TOUGHENING OPERATOR Temperature 37.2 ??C (98.9 ??F) 10/11/2022 2:36 PM CS T Respiratory Rate - - Oxygen Saturation 100% 10/11/2022 2:36 PM GLASS TOUGHENING OPERATOR Inhaled Oxygen Concentration - - Weight 64.9 kg (143 lb) 10/11/2022 2:36 PM GLASS TOUGHENING OPERATOR Height 172.7 cm (5' 8 ) 10/11/2022 2:36 PM GLASS TOUGHENING OPERATOR Body Mass Index 21.74 10/11/2022 2:36 PM GLASS TOUGHENING OPERATOR documented in this encounter Patient Instructions * Patient Instructions* Cindy Cortés, AMAURI - 10/11/2022 2:20 PM GLASS TOUGHENING OPERATOR 10/04/[address] Fernandez Stone which revealed mild internal hemorrhoids, recommendations are to repeat in 10 years for screening colonoscopy It is recommended to consume 20-35 grams of fiber per day and at least 64 ounces/2 liters of water per day. Below are the common foods with fiber content listed for you. This will help with normal bowel movements. ?? 2018 [employer] and/or its affiliates. All Rights Reserved. Amount [...] with added ascorbic acid 1 cup 0.5 [place] 1 cup 0.7 Vegetables Cooked Green beans 1 cup 4.0 Carrots 1/2 cup sliced 2.3 Peas 1 cup 8.8 Potato (baked, with skin) 1 medium potato 3.8 Raw [place] (with peel) 1 cucumber 1.5 Lettuce 1 [...] nutrients are in different foods, visit the [employer] Department of Agriculture (USDA) National Nutrient Database at: http://www.nal.usda.gov/fnic/foodcomp/search/. Created using data from the USDA National Nutrient Database for Standard Reference. Available at http://www.nal.usda.gov/fnic/foodcomp/search/. Graphic 72172 Version 4.0 S TOUGHENING OPERATOR S TOUGHENING OPERATOR S TOUGHENING OPERATOR * Attachments The following attachments cannot be sent through Care Everywhere. * Hemorrhoids ([place]orese) documented in this encounter Progress Notes * Cindy Cortés NP - 10/11/2022 2:20 PM CST Images from the original note were not included. Gastroenterology established Visit Reason for Visit: Follow Up (Post procedure--no concerns at this time) History of Present Illness: Osman Aguilar is a 47-year-old female being seen in clinic for follow up from 10/04/[address] Fernandez Stone revealing negative findings except for mild internal hemorrhoids. Dr. Stone recommends repeat in 10 years. PCP Quinton GORDON MD. Bowel habits are daily to 2 times per day. Magnesium supplements taken at times with headaches. No meats in diet eats beans and nuts. More greens and smoothies. No constipation or diarrhea, no hematochezia or melena. No weight loss. No nausea, vomiting, dysphagia, abdominal pain, heart burn or acid reflux. Appropriate appetite. Prior abdominal surgeries: none. No EGDs in the past. 10/04/[address] Fernandez Stone No prior h/o hepatitis, no prior tattoos, [...] mg by mouth daily., Disp: , Rfl: Allergies: No Known Allergies Medical History: Past Medical History: Diagnosis Date ??? Bilateral headaches ??? Hot flashes ??? Migraines not any more eats healthier Surgical History: Past Surgical History: Procedure Laterality Date ??? COLONOSCOPY N/A 10/04/2022 Mild internal hemorrhoids otherwise negative/repeat 5 years/by Fernandez Stone MD at [facility] Social History: Social History Tobacco Use ??? Smoking status: Never ??? Smokeless tobacco: Never Vaping Use ??? Vaping Use: Never used Substance Use Topics ??? Alcohol use: Not Currently ??? Drug use: Never Family History: Family History Problem Relation Name Age of Onset ??? No Known Problems Mother ??? Hypertension Father ??? Diabetes Father ??? Heart Disease Father ??? Breast Cancer Maternal Grandmother 60 PE: Filed Vitals: 10/11/22 1436 BP: 120/86 Pulse: 92 Temp: 98.9 ??F (37.2 ??C) SpO2: 100% Weight: 64.9 kg (143 lb) Height: 5' 8 (1.727 m) Physical [...] ALB, ALT, AST, ALKP Endoscopic Results Reviewed: 10/04/[address] Fernandez Stone Findings: Negative colon to cecum with excellent bowel prep. Mild hemorrhoids only. ?? Plan: Repeat screening colonoscopy in 10 years. Diagnoses/Impression: Hemorrhoids, unspecified hemorrhoid type (primary encounter diagnosis) 1. Internal hemorrhoids: Patient denies any concerns for hemorrhoids at this time. Colonoscopy was otherwise negative patient remains average risk for colon cancer and recommended to repeat in 10 years. No personal history of colon polyps. No family history of colon cancer. No smoking history. No GI complaints. 2. Comorbid Conditions: Bilateral headaches, hot flashes, migraines Recommendations and Plan: ?? Next screening colonoscopy 2031 ?? It is recommended to consume 20-35 grams of fiber per day and at least 64 ounces/2 liters of water per day. ?? Provided patient information on hemorrhoidal care including [id number] agents that she mayuse to treat if so desired. ?? All questions answered ?? Follow-up with GI as needed Orders placed this encounter: No orders of the defined types were placed in this encounter. Cindy Cortés NP 10/11/2022 S TOUGHENING OPERATOR documented in this encounter Plan of Treatment Not on file documented as of this encounter Visit Diagnoses Diagnosis Hemorrhoids, unspecified hemorrhoid type- Primary documented in this encounter Care Teams Almond Blancher Relationship Specialty Start Date End Date Fernanda Gordon MD 3 [facility] [address] [place] [address] PCP - General FAMILY PRACTICE 06/10/20 documented as of this encounter
--- OUTSIDE RECORDS SUMMARY | 2024-11-16 09:58 | XMS_ITS | Encounter Summary ---
Author Organization [facility] Address [address] [place] [address]. [place], [place] [address] [place] [address] Care Team Providers Care Court Advocate Name Role Phone Fernanda Berrios MD Primary Care Provider + Reason for Visit * Auth/Cert Specialty Diagnoses / Procedures Referred By Kari blandon Referred To Contact Diagnoses Colon cancer screening screening colonoscopy Procedures COLONOSCOPY,DIAGNOSTIC COLONOSCOPY Chuck Stone MD 3 [facility] [place] [address] [place] [address] Phone: tel: fax: Referral ID Status Reason Start Date Expiration Date Visits Re quested Visits Authorized [id number] 1 1 Encounter Details Date Type Department Care Team (Late st Contact Info) Description 10/04/2022 9:20 AM WATER QUALITY TESTER - 10/04/2022 9:40 AM WATER QUALITY TESTER Surgery [facility] [address] [place] [address] Chuck Stone MD 3 [facility] [place] [address] [place], [place] [id number] COLONOSCOPY Surgery Details Date/Time Status Location OR Service Patient Class Case Class Case Type Trauma Case? 10/04/2022 9:20 AM Posted [facility] 2 Gastroenterology Short Stay/Outpa tient Surgery No Panel 1 Procedure LRB Anes Op Region Wound Class Comments COLONOSCOPY N/A General Clean Contaminated negative Surgeon Surgeon Role Service Panel Chuck Stone MD Primary Gastroenterology 1 documented in this encounter Social History Tobacco Use Types Packs/Day Years [...] Coronavirus/COVID-19? No / Unsure 10/04/2022 9:33 AM WATER QUALITY TESTER documented as of this encounter Last Filed Vital Signs Vital Sign Reading Time Taken Comments Blood Pressure - - Pulse - - Temperature - - Respiratory Rate - - Oxygen Saturation - - Inhaled Oxygen Concentration - - Weight 62.6 kg (138 lb) 09/21/2022 4:04 PM CDT Height 172.7 cm (5' 8 ) 09/21/2022 4:04 PM CDT Body Mass Index 20.98 09/21/2022 4:04 PM CDT documented in this encounter Discharge Instructions * Discharge Instructions* Oly De La Vega RN - 10/04/2022 11:40 AM WATER QUALITY TESTER Plan: Repeat screening colonoscopy in 10 years. R QUALITY TESTER * Attachments The following attachments cannot be sent through Care Everywhere. * Colonoscopy Discharge Instructions (Slovenian) * General Anesthesia Discharge Instructions (Slovenian) documented in this encounter Medications at Time of Discharge Cholecalciferol (VITAMIN D) 50 MCG (1999 UT) Tab Take 1 tablet by mouth daily. 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 Smoking status: Never ??? [...] CHUCK STONE MD Voice recognition software utilized R QUALITY TESTER documented in this encounter OR Notes * Op Note - Chuck Stone MD - 10/04/2022 11:33 AM CST [facility] OpNote COLONOSCOPY Procedure Note Osman Aguilar 10/04/2022 0920 Procedure(s) (LRB): COLONOSCOPY (N/A) Surgeon(s): Chuck Stone MD Staff: GI Nurse: Loren Galeas RN pit slagman: Willem Stallworth, Woodyard Crane Operator Anesthesia: General Anesthesiologist: Bobby Pena MD LUMITE INJECTOR: Ana María Adam CRNA Pre-Op Diagnosis: screening [...] Time: 11:33 AM Voice recognition software utilized. R QUALITY TESTER documented in this encounter Plan of Treatment Not on file documented as of this encounter Procedures Procedure Name Priority Date/Time Associated Diagnosis Comments COLONOSCOPY FLX DX W/COLLJ SPEC WHEN PFRMD 10/04/2022 11:04 AM WATER QUALITY TESTER Colon cancer screening COLONOSCOPY Routine 10/04/2022 10:05 AM WATER QUALITY TESTER documented in this encounter Visit Diagnoses Diagnosis Colon cancer screening- Primary Special screening for malignant neoplasms, colon Colon cancer screening Special screening for malignant [...] rate, Pre-Op New Bag 10/04/2022 11:05 AM WATER QUALITY TESTER documented in this encounter Active and Recently Administered Medications Times are shown in WATER QUALITY TESTER. Continuous Medication Order 10/02/2022 10/03/2022 10/04/2022 lactated ringers infusion at 10 mL/hr, Intravenous, Continuous, Starting on Tue10/04/22 at 1030, Until Tue10/04/22 at 1418, Infuse at TKO rate, Pre-Op 1105 (New Bag - Prov ider: Ana María Adam CRNA)1126 (Infusion Stop Time - Provider: Ana María Adam CRNA) documented in this encounter Care Teams Court Advocate Relationship Specialty Start Date End Date Fernanda Berrios MD 3 [facility] [address] [place] [address] PCP - General FAMILY PRACTICE 06/10/20 documented as of this encounter
--- OUTSIDE RECORDS SUMMARY | 2024-11-16 09:58 | XMS_ITS | Encounter Summary ---
Author Organization [facility] Address [address] [place] [address]. [place] [address] [place] [address] Care Team Providers Care Shredder Tender Peat Name Role Phone Fernanda Berrios MD Primary Care Provider + Reason for Visit * Reason Onset Date Comments Medication 07/27/2022 Encounter Details Date Type Department Care Team (Late st Contact Info) Description 07/27/2022 Telephone [facility] Medical [facility] Multispecialty Care - [facility] [address] [facility] [place] [id number] Cindy Cortés NP 3 [facility] [address] [place], [place] [id number] Medication Social History Tobacco Use Types Packs/Day Years [...] as of this encounter Progress Notes * Bina Jules MA - 07/27/2022 12:43 PM CDT Spoke to patient, all clear she found the medication it needed to be activated at the pharmacy. Shealso wanted to know if she could have vegetable broth instead of the chicken and beef. Per TRANSPLANT WORKER yes she can. * Hina Merrill - 07/27/2022 11:46 AM CDT Patient called today and said she lost the order for her pre op mediations. [facility]. Please call her when completed. documented in this encounter Plan of Treatment Not on file documented as of this encounter Visit Diagnoses Not on filedocumented in this encounter Care Teams Shredder Tender Peat Relationship Specialty Start Date End Date Fernanda Berrios MD 3 [facility] [address] [place], [place] [phone] PCP - General FAMILY PRACTICE 06/10/20 documented as of this encounter
--- OUTSIDE RECORDS SUMMARY | 2024-11-16 09:58 | XMS_ITS | Encounter Summary ---
Author Organization [facility] Address [address] [place] [address]. [place], [place] [phone] [place] [address] Care Team Providers Care Superintendent Distribution Name Role Phone Fernanda Berrios MD Primary Care Provider + Encounter Details Date Type Department Care Team (Latest Contact Info) Description 07/11/2020 Travel Social History Tobacco Use Types Packs/Day [...] on filedocumented in this encounter Care Teams Superintendent Distribution Relationship Specialty Start Date End Date Fernanda Berrios MD 3 [facility] [address] [place] [address] PCP - General FAMILY PRACTICE 06/10/20 documented as of this encounter
--- OUTSIDE RECORDS SUMMARY | 2024-11-16 09:58 | XMS_ITS | Encounter Summary ---
Author Organization [facility] Address [address] [place] [address]. [place] [address] [place] [address] Care Team Providers Care Laborer Starch Factory Name Role Phone Unavailable Primary Care Provider Unavailabl e Encounter Details Date Type Department Care Team (Late st Contact Info) Description 04/28/2009 Abstract [facility] [place] [address] , Alexy Torres MD Social History Tobacco [...]
--- OUTSIDE RECORDS SUMMARY | 2024-11-16 09:58 | XMS_ITS | Encounter Summary ---
Author Organization [facility] Address [address] [place] [address]. [place], [place] [address] [place] [address] Care Team Providers Care Wheel And Axle Inspector Name Role Phone Fernanda Berrios MD Primary Care Provider + Encounter Details Date Type Department Care Team (Latest Contact Info) Description 10/04/2022 Travel Social History Tobacco Use Types Packs/Day [...] Coronavirus/COVID-19? No / Unsure 10/04/2022 9:33 AM SEXTON HELPER documented as of this encounter Plan of Treatment Not on file documented as of this encounter Visit Diagnoses Not on filedocumented in this encounter Care Teams Wheel And Axle Inspector Relationship Specialty Start Date End Date Fernanda Berrios MD 3 [facility] [id number] [place] [address] PCP - General FAMILY PRACTICE 06/10/20 documented as of this encounter
--- OUTSIDE RECORDS SUMMARY | 2024-11-16 09:58 | XMS_ITS | Encounter Summary ---
Author Organization [facility] Address [address] [place] [address]. [place], [place] [id number] [place] [address] Care Team Providers Care Fabric Sourcer Name Role Phone Fernanda Berrios MD Primary Care Provider + Encounter Details Date Type Department Care Team (Latest Contact Info) Description 06/20/2020 Travel Social History Tobacco Use Types Packs/Day [...] on filedocumented in this encounter Care Teams Fabric Sourcer Relationship Specialty Start Date End Date Fernanda Berrios MD 3 [facility] [address] [place] [address] PCP - General FAMILY PRACTICE 06/10/20 documented as of this encounter
--- OUTSIDE RECORDS SUMMARY | 2024-11-16 09:58 | XMS_ITS | Encounter Summary ---
Author Organization [facility] Address [address] [place] [address]. [place] [address] [place] [address] Care Team Providers Care Deckhand Sponge Boat Name Role Phone Fernanda Berrios MD Primary Care Provider + Reason for Visit * Reason Onset Date Comments Medication 07/27/2022 Encounter Details Date Type Department Care Team (Late st Contact Info) Description 07/27/2022 Telephone [facility] Multispecialty Care - [facility] [address] [facility] [place] [id number] Fernandez Stone MD 3 [facility] [address] [place], [place] [id number] Medication Social History Tobacco Use Types Packs/Day [...] on filedocumented in this encounter Care Teams Deckhand Sponge Boat Relationship Specialty Start Date End Date Fernanda Berrios MD 3 [facility] [address] [place], [place] [phone] PCP - General FAMILY PRACTICE 06/10/20 documented as of this encounter
--- OUTSIDE RECORDS SUMMARY | 2024-11-16 09:58 | XMS_ITS | Encounter Summary ---
Author Organization [facility] Address [address] [place] [address]. [place], [place] [address] [place] [address] Care Team Providers Care Pathology Technician Name Role Phone Fernanda Berrios MD Primary Care Provider + Reason for Visit * Consultation/Treatment (Routine) - Closed Specialty Diagnoses / Procedures Referred By Kari blandon Referred To Contact PAIN MANAGEMENT / [facility] Pain Management Diagnoses neck pain Procedures consult New Referring, Provider Krista Powell APNP Phone: tel: fax: Referral ID Status Reason Start Date Expiration Date Visits Re quested Visits Authorized [id number] Closed 07/23/2020 07/23/2021 7 7 Encounter Details Date Type Department Care Team (Latest Contact Info) Description 09/05/2020 10:10 AM CDT - 09/05/2020 11:59 PM CDT Hospital Encounter [facility] Interventional [place] [address] [phone] Krista Powell APNP [address] [place] [phone] Discharge Disposition: Home or Self Care (Routine [...] Sign Reading Time Taken Comments Blood Pressure 118/70 09/05/2020 10:50 AM CDT Pulse 80 09/05/2020 10:35 AM CDT Temperature 36.7 ??C (98 ??F) 09/05/2020 10:35 AM CDT Respiratory Rate 20 09/05/2020 10:35 AM CDT Oxygen Saturation 100% 09/05/2020 10:35 AM CDT Inhaled Oxygen Concentration - - Weight 64.2 kg (141 lb 9.6 oz) 09/05/2020 10:35 AM CDT Height 172.7 cm (5' 8 ) 09/05/2020 10:35 AM CDT Body Mass Index 21.53 09/05/2020 10:35 AM CDT documented in this encounter Medications at Time of Discharge Cholecalciferol (VITAMIN D) 50 MCG (1999 UT) Tab Take 1 tablet by mouth daily. Magnesium 400 MG Cap Take 400 mg by mouth daily. folic acid 400 MCG tablet Take 400 mcg by mouth daily. 10/11/2022 documented as of this encounter H&P Notes * SANTOS Tirado - 09/05/2020 11:00 AM CDTSummary: Numbness of left hand with shooting pains at the left arm to the left shoulder, neck pain that radiates across the shoulders Interventional Pain Management History & Physical Referring Provider: Erik Blood MD Chief Complaint: Numbness of left hand with shooting pains at the left arm to the left shoulder, neck pain that radiates across the shoulders HPI: Osman Aguilar is a right hand dominant 45-year-old female who has is seen today as a new patient as as referred by Erik Blood MD. She has been experiencing numbness of left hand with shooting pains at the left arm to the left shoulder, neck pain that radiates across the shoulders. She said the pain began gradually in December 2019. She denies trauma. She rates her pain today as 0 on a 0-to-10 scale, with an overall average of 7 on a 0-to-10 scale pain level, the worst pain being 10 on a 0-to-10 scale. She described the pain is shooting, throbbing, sharp, electric shocklike, moderate, intermittent, very variable. Associated symptoms includes numbness and tingling of left hand.She said she experiences migraine headaches, which have occurred for years. She also experiences vertigo and cluster headaches. She said the cluster headaches began last and that she underwent evaluation at [facility] emergency room, as well as a MRI of the head, which was negative.She said of the migraine headaches have been managed with magnesium. She does mention she took a dose of Tylenol with the most recent onset of cluster headache, which was helpful. She said that Dr. Blood discussed the option of preventative migraine medication; however she does not like medication and declined. She said the neck, shoulder, and arm pain is worse with sitting. She said prolonged driving causes pain particularly across her shoulders. Factors that relieve the pain include relaxation. She said she has not tried specific treatments for her current pain complaints. She does mention she has a history of low back pain in 2012 and 2014 received physical therapy for low back pain in [place], [place]. Past Medical History: Diagnosis Date ??? Bilateral headaches ??? Hot flashes ??? Migraines History reviewed. No pertinent surgical history. (Not in a hospital admission) No Known Allergies Social History Socioeconomic History ??? Marital status: Spouse name: Joaquín ??? Number of children: 4 ??? Years of education: Not on file ??? 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 Financial resource strain: Not on file ??? Food insecurity Worry: Not on file Inability: Not on file ??? Transportation needs Medical: Not on file Non-medical: Not on file Tobacco Use ??? Smoking status: Never Smoker ??? Smokeless tobacco: Never Used Substance and Sexual Activity ??? Alcohol use: Not Currently ??? Drug use: Not on file ??? Sexual activity: Yes Lifestyle ??? Physical activity Days per week: 4 days Minutes per session: 30 min ??? Stress: Not on file Relationships ??? Social connections Talks on phone: Not on file Gets together: Not on file Attends restorationist service: Not on file Active member of club or organization: Not on file Attends meetings of clubs or organizations: Not on file Relationship status: Not on file ??? Intimate partner violence Fear of current or ex partner: Not on file Emotionally abused: Not on file Physically abused: Not on file Forced sexual activity: Not on file Other Topics Concern ??? Service Not Asked [...] Narrative Lives home with and 2 sons. Family History Problem Relation Name Age of Onset ??? Breast Cancer Maternal Grandmother 60 ??? No Known Problems Mother Review of Systems Constitutional: Negative. HENT: Negative. Eyes: Negative. Respiratory: Negative. Cardiovascular: Negative. Gastrointestinal: Negative. Denies incontinence of bowels Endocrine: Negative. Genitourinary: Negative. Denies urinary incontinence Musculoskeletal: Shooting pains up the the left arm from the hand to the left shoulder, neck pain that radiates across the shoulders Skin: Negative. Allergic/Immunologic: Negative. Neurological: Numbness of left hand. History of migraine headaches and cluster headaches. She said she has had migraine headaches for years, she said she recently began to develop cluster headaches. Dizziness. Shesaid she has she has discussed the dizziness migraines with her PCP. Hematological: Negative. Psychiatric/Behavioral: Negative. Filed Vitals: 09/05/20 1035 09/05/20 1050 BP: (!) 149/93 118/70 Pulse: 80 Resp: 20 Temp: 98 ??F (36.7 ??C) TempSrc: Temporal SpO2: 100% Weight: 64.2 kg (141 lb 9.6 oz) Height: 5' 8 (1.727 m) Diagnostic Workup: She had an MRI of the cervical spine on 06/20/2020. The radiologist report was reviewed this copied below: FINDINGS: The visualized sphenoid bone appears more hyperintense on T1 and T2 than cervical spine bone marrow. Additionally, some mild heterogeneity in signal. Recommend CT follow-up to evaluate bonestructure and integrity. The visualized posterior fossa and spinal cord are normal. Asymmetric degenerative disc disease posteriorly at C6-7. C2-3: Normal. C3-4: Small posterior osteophytes. Moderate disc bulge. Mild spinal stenosis. Bilateral foraminal stenosis. C4-5: Small posterior osteophytes. Large disc bulge somewhat asymmetric to the left side. Moderate spinal stenosis. No abnormal intramedullary signal. Bilateral foraminal stenosis. Mild ligamentum flavum hypertrophy. C5-6: Small posterior osteophytes. Mild ligamentum flavum hypertrophy. Large disc bulge. Moderate spinal stenosis. Bilateral foraminal stenosis. C6-7: Small posterior osteophytes. Large disc bulge. Mild spinal stenosis. Facet hypertrophy. Bilateral foraminal stenosis. C7-T1: Normal. IMPRESSION: 1. Indeterminate bone findings related to the visualized portion of the sphenoid bone. 2. Multilevel cervical spine degenerative changes which are most advanced between C4-5 and C6-7. Interpreted By: Angelito Lozano MD, 06/20/2020 1:10 PM Physical Exam Body mass index is 21.53 kg/m??. The patient is alert and oriented x 3, and follows directions and answers questions appropriately. Skin is warm and dry. Mood and affect: Calm, pleasant, and cooperative. General examination of her heart lungs and abdomen was unremarkable. No scarring, redness, discoloration or sign of infection noted to the cervical region or shoulders. No pain to direct palpation of the cervical spine. She experiences tenderness palpation across the trapezius muscle, left sidegreater than right, with muscle shortening noted to palpation. She experiences mild tenderness palpation of the cervical facets and the left and right occiput. No pain to palpation of the clavicals, scapulae, or shoulder joint lines bilaterally. Range of motion of her neck is within normal limits with extension, forward flexion, left lateral rotation, right lateral rotation. Negative Spurling's. Negative Ragland's sign. No cervical adenopathy noted to palpation. Range of motion to the upper extremities is within normal limits with elbow flexion and extension, adduction, abduction, external rot ation, internal rotation, elbow flexion and extension. No winging of scapula. Motor strength to theupper extremities is 5/5 with elbow extension and flexion, wrist flexion, technical training coordinator and finger adduction, and lift off test. No color changes, redness, warmth, edema is present to the upper extremities. Triceps, biceps, and brachiaradialis reflexes are 2/4 bilaterally. Sensation to palpation of the upper extremities is equal and intact bilaterally. Radial pulses are +2 bilaterally. Capillary refill ofthe upper extremities is less than 3 seconds bilaterally. Impression: 1. Cervical radiculopathy 2. Myofascial pain Recommendations: 30 minutes face-face time spent with the patient with more than 50% in counseling and coordination of care. She has been experiencing numbness of left hand with shooting pains at the left arm to the left shoulder, neck pain that radiates across the shoulders. Options were reviewed with the patient.We discussed a cervical epidural steroid injection, C7-T1 as a treatment option. The procedure was described in detail as were the benefits and risks, and she voiced understanding. Risks including, but not limited to infection, permanent neurological deficit due to nerve root injury, bleeding, anaphylaxis, flushing, increased urinary frequency, cerebral spinal fluid leak, paralysis, spinal cord injury, thinning of the skin, thinning of the bones, muscle cramping were reviewed with her and she verbalized understanding. We also discussed physical therapy as an option. She said she would like tomove forward at this time with physical therapy. She has been provided with a prescription for the physical therapy, and is agreeable with the plan of care. It was my pleasure to participate in her care. Thank you for referring this very pleasant patient. SANTOS TIRADO CC: Erik Blood MD Cosigned by Ward Vela MD at 09/08/2020 10:24 AM CDT Associated attestation - Ward Vela MD - 09/08/2020 10:24 AM CDT I, WARD VELA MD, performed a History and Physical examination of the patient and discussed the management with the Advanced Practice Provider (JONEL). I reviewed the JONEL's note and agree with the findings and plan of care, except as I have documented. documented in this encounter Plan of Treatment Not on file documented as of this encounter Visit Diagnoses Diagnosis Cervical radiculopathy- Primary Brachial neuritis or radiculitis nos documented in this encounter Care Teams Pathology Technician Relationship Specialty Start Date End Date Fernanda Berrios MD 3 [facility] [address] [place] [address] PCP - General FAMILY PRACTICE 06/10/20 documented as of this encounter
--- OUTSIDE RECORDS SUMMARY | 2024-11-16 09:58 | XMS_ITS | Encounter Summary ---
Author Organization [facility] Address [address] [place] [address]. [place] [address] [place] [address] Care Team Providers Care Timber Appraiser Name Role Phone Fernanda Berrios MD Primary Care Provider + Reason for Referral * Physical Medicine (Routine) - Closed Specialty Diagnoses / Procedures Referred By Kari blandon Referred To Contact PHYSICAL THERAPY Diagnoses Cervical radiculopathy Krista Powell APNP Phone: tel: fax: Referral ID Status Reason Start Date Expiration Date V isits Requested Visits Authorized [id number] Closed Physical Therapy 09/08/2020 10/09/2021 1 1 Scheduling Instructions Cervical radiculopathy and myofascial pain APEX Sabino Bradford ID Encounter Details Date Type Department Care Team (Late st Contact Info) Description 09/08/2020 Orders Only [facility] Interventional Pain Management [place] [address] [phone] Krista Powell APNP [address] [place] [phone] Social History Tobacco Use Types Packs/Day Years [...] of this encounter Plan of Treatment Scheduled Referrals Name Type Priority Associated Diagnoses Orde r Schedule Ambulatory referral to Physical Therapy Referral Routine Cervical radiculopathy Ordered: 09/08/2020 documented as of this encounter Visit Diagnoses Diagnosis Cervical radiculopathy- Primary Brachial neuritis or radiculitis nos documented in this encounter Care Teams Timber Appraiser Relationship Specialty Start Date End Date Fernanda Berrios MD 3 [facility] [address] [place] [address] PCP - General FAMILY PRACTICE 06/10/20 documented as of this encounter
--- OUTSIDE RECORDS SUMMARY | 2024-11-16 09:58 | XMS_ITS | Encounter Summary ---
Author Organization [facility] Address [address] [place] [address]. [place], [place] [id number] [place] [address] Care Team Providers Care Appraiser Irrigation Tax Name Role Phone Fernanda Berrios MD Primary Care Provider + Reason for Visit * Auth/Cert Specialty Diagnoses / Procedures Referred By Kari blandon Referred To Contact Diagnoses Colon cancer screening screening colonoscopy Procedures COLONOSCOPY,DIAGNOSTIC COLONOSCOPY Fernandez Stone MD [address] [address] Phone: tel: fax: Referral ID Status Reason Start Date Expiration Date Visits Re quested Visits Authorized [id number] 1 1 Encounter Details Date Type Department Care Team (Late st Contact Info) Description 10/04/2022 11:04 AM WORLD TRAVEL COUNSELOR Anesthesia Event [facility] Endo/[place], [place] [address] Bobby Pena MD 1 [place], [place] [address] Anesthesia Record Procedure Summary Procedure Name Responsible Anesthesiologist Anesthesia Start Time Anesthesia Stop Time COLONOSCOPY Bobby Pena MD 10/04/22 1104 10/04/22 1 129 Events Date Time Event Comment 10/04/2022 0956 AN DISTILLERY WORKER GENERAL Prepped 1036 1036 AN Anesthesia Prepped 1104 An Start Data 1104 Nasal Cannula Applied 1104 An Start Patient ID and consent checked and patient reassessed. 1104 Anesthesia Ready 1111 An Induction The patient was reevaluated immediately before moderate or deep sedation use and before anesthesia induction. 1116 an eduard now 1124 An Emergence 1124 Nasal Cannula Removed 1129 an stop data 1129 Anes Handoff 1129 An Stop Meds Name Total lidocaine (PF) (XYLOCAINE) 2% injection 100 mg propofol (DIPRIVAN) 200 mg/20 mL injecti on 200 mg lactated ringers infusion 700 mL * Agents Name O2 Ancillary O2 * Blood No blood administrations on file. Lines, Drains, and Airways Type Details Placement Removal Peripheral IV Placement Date: 09/21 03/12; Placement Time: 1014; Placed Outside of This Facility?: No; Size: 20 G; Orientation: Right; Location: Antecubital; Site Prep: Chlorhexidine; Local Anesthetic: None; Inserted By: Beena Freitas; Insertion attempts: 2; Ultrasound-guided Placement?: No; Patient Tolerance: Tolerated well; Removal Date: 10/04/22; Removal Time: 1157; Removal Reason: Patient Discharged 10/04/22 1014 by Ayesha Damon RN 10/04/22 1157 by Oly De La Vega RN documented in this encounter Social History Tobacco [...] Recorded In the last 10 days, have margaret rolon been in contact with someone who was confirmed or suspected to have Coronavirus/COVID-19? No / Unsure 10/04/2022 9:33 AM WORLD TRAVEL COUNSELOR documented as of this encounter OR Notes * Anesthesia Postprocedure Evaluation - Bobby Pena MD - 10/04/2022 1:22 PM CST Anesthesia Post-op Note Osman Aguilar Procedure(s): COLONOSCOPY Anesthesia type: general Vitals: 10/04/22 1150 BP: 137/85 Vitals: 10/04/22 1150 Pulse: 76 Vitals: 10/04/22 1150 Resp: 18 Vitals: 10/04/22 1129 Temp: 36.6 ??C Vitals: 10/04/22 1150 SpO2: 100% Patient Location: Phase II/Outpatient Level of Consciousness: awake, oriented and alert Pain Management: adequate analgesia Airway Patency: patent Respiratory Status: acceptable Cardiovascular Status: acceptable Post-Op Nausea: none Postoperative Hydration: euvolemic No notable events documented. D TRAVEL COUNSELOR * Anesthesia Preprocedure Evaluation - Bobby Pena MD - 10/04/2022 10:35 AM CST Anesthesia ROS/MED History Reviewed: Patient summary , Family history anesthesia, Anesthesia history , Medications , Labs , Unchecked boxes are not applicable Pre-Anesthetic State: alert, awake and responds appropriately no history of anesthetic complications Pulmonary (-) COPD, sleep apnea, asthma, smoker Cardiovascular (-) hypertension, Valvular problems/Murmurs, past [place], CHF, arrhythmia Neuro/Psych (-) no seizures, no CVA GI/Hepatic/Renal (-) GERD, PUD, liver disease, renal disease Endo/Other (-) diabetes, normal weight range, blood dyscrasia GENERAL COMMENTS No Known Allergies Past Medical History: Bilateral headaches Hot flashes Migraines Comment: not any more eats healthier History reviewed. No pertinent surgical history. Physical Evaluation Airway Mallampati: I Dental No notable dental history Pulmonary Breath sounds clear to auscultation Cardiovascular Rhythm: regular Rate: normal Anesthesia Plan ASA 1 Intravenous Induction Anesthesia type: general Plan for Airway: nasal cannula/simple face mask TIVA Informed Consent Anesthetic plan and risks discussed with patient of whom consent was obtained. . D TRAVEL COUNSELOR documented in this encounter Plan of Treatment Not on file documented as of this encounter Visit Diagnoses Not on filedocumented in this encounter Administered Medications Inactive Administered Medications - up to 3 most recent administrations Medication Order MAR Action Action Date Dose Rate Site lactated ringers infusion at 10 mL/hr, Intravenous, Continuous, Starting on Tue10/04/22 at 1030, Until Tue10/04/22 at 1418, Infuse at TKO rate, Pre-Op New Bag 10/04/2022 11:05 AM WORLD TRAVEL COUNSELOR lidocaine (PF) (XYLOCAINE) 2 % injection Intravenous, PRN, Starting on Tue10/04/22 at 1111, Until Tue10/04/22 at 1129, Anesthesia Intra-Op Given 10/04/2022 11:11 AM WORLD TRAVEL COUNSELOR 100 mg propofol (DIPRIVAN) IV bolus Intravenous, PRN, Starting on Tue10/04/22 at 1111, Until Tue10/04/22 at 1129, Anesthesia Intra-Op Given 10/04/2022 11:20 AM WORLD TRAVEL COUNSELOR 25 mg Given 10/04/2022 11:16 AM WORLD TRAVEL COUNSELOR 50 mg Given 10/04/2022 11:11 AM WORLD TRAVEL COUNSELOR 125 mg documented in this encounter Care Teams Appraiser Irrigation Tax Relationship Specialty Start Date End Date Fernanda Berrios MD 3 [facility] [address] [place] [address] PCP - General FAMILY PRACTICE 06/10/20 documented as of this encounter
--- OUTSIDE RECORDS SUMMARY | 2024-11-16 09:59 | XMS_ITS | Clinical Summary ---
Author Organization [facility] B Address [address] [place] [address] Care Team Providers Care Leadership Development Instructor Name Role Phone Clinic, Primary Care Medicine MD Primary Care Pr ovider Unavailable Allergies No known active allergies Medications amitriptyline (ELAVIL) 25 mg tablet take 1 tablet by oral route every day at bedtime 30 5 6 Active Additional Information Patient not taking.Reported on 05/23/2024 SUMAtriptan (IMITREX) 5 mg/actuation nasal spray spray 1 spray by intranasal route once; if headache returns, dose may be repeated once after 2 hours, not to exceed 40 mg per day 9 spray 3 6 Active Additional Information Patient not taking.Reported on 05/23/2024 Active Problems Problem Noted Date Diagnosed Date Migraine without aura and responsive to treatmen t 10/20/2016 Overview (02/25/2017): Chronic migraine without aura without status migrainosus, not intractable Medical History Medical History Date Comments Hx Other Medical Headache, migra ine Hx Other Medical vertigo Family History Medical History Relation Name Comments Diabetes type II Father Diabetes me llitus type 2; Hypertension Father Hypertension; Headache Mother Headaches; Relation Name Status Comments Father Mother Social History Tobacco Use Types Packs/Day Years Used Date Smoking Tobacco: Never Alcohol Use Standard Drinks/Week Comments No 0 (1 standard drink = 0.6 oz pur e alcohol) Comments Unknown Sex and Gender Information Value Date Recorded Sex Assigned at Not on file 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 Gender Identity Not on file Sexual Orientation Not on file Obstetrics History Last Filed Vital Signs Vital Sign Reading Time Taken Comments Blood Pressure 130/91 05/23/2024 2:07 PM CDT Pulse 83 05/23/2024 2:07 PM CDT Temperature 36.9 ??C (98.4 ??F) 05/23/2024 2:07 PM CD T Respiratory Rate 18 05/23/2024 2:07 PM CDT Oxygen Saturation 99% 05/23/2024 2:07 PM CDT Inhaled Oxygen Concentration - - Weight 66.4 kg (146 lb 6.4 oz) 05/23/2024 2:07 P M CDT Height 172.7 cm (5' 7.99 ) 05/23/2024 2:07 PM CD T Body Mass Index 22.27 05/23/2024 2:07 PM CDT Plan of Treatment Health Maintenance Due Date Last Done Comments Cervical Cancer Screening 1973 Colon Cancer Screening-Colonoscopy 1973 Depression Screening 1973 Hepatitis C Screening 1973 Hepatitis B Screening 1991 Regular Well Visit/Exam 18-64 1991 Breast Cancer Screening-Mammogram 07/11/2021 07/11/2020, 07/11/2020, 03/26/2015 Zoster Vaccine (1 of 2) 2023 Covid-19 Vaccine (3 - 2023-2 5 season) 2024 02/11/2021, 01/20/2021 Influenza Vaccine (#1) 2024 5, 03/19/2015, 08/25/2012 DTaP/Tdap/Td Vaccine (3 - Td or Tdap) 08/05/2026 08/05/2016, 07/07/2009 Pneumococcal vaccine <65 Aged Out No longer eligible based on patient's age to complete this topic Insurance [employer] Care Teams Leadership Development Instructor Relationship Specialty Start Date End Date Clinic, Primary Care Medicine, PCP - General 11/09/17
--- OUTSIDE RECORDS SUMMARY | 2024-11-16 09:59 | XMS_ITS | Encounter Summary ---
Author Organization [facility] Address [address] [place] [id number] Care Team Providers Care In Flight Refueling Manager Name Role Phone Unavailable Primary Care Provider Unavailabl e Encounter Details Date Type Department Care Team (Late st Contact Info) Description 12/29/2020 Lab Requisition [facility] Community Testing [facility] [address] [place] [address] Mark Kumar MD [address] [place] [address] [address] [place], [place] [address] Social History Tobacco Use Types Packs/Day Years Used Date Smoking Tobacco: Never Assessed Comments Unknown Sex and Gender Information Value Date Recorded Sex Assigned at Not on file 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
--- OUTSIDE RECORDS SUMMARY | 2024-11-16 09:59 | XMS_ITS | Encounter Summary ---
Author Organization [facility] Address [address] [place] [address] Care Team Providers Care Model Maker Apprentice Name Role Phone Unavailable Primary Care Provider Unavailabl e Encounter Details Date Type Department Care Team (Late st Contact Info) Description 12/29/2020 10:00 AM FRAMER Rapid Evaluation [facility] Community Testing [address] [address] Social History Tobacco Use Types Packs/Day Years Used Date Smoking Tobacco: Never Assessed Comments Unknown Sex and Gender Information Value Date Recorded Sex Assigned at Not on file Legal Sex Female 9:46 AM FRAMER Gender Identity Not on file Sexual Orientation Not on file documented as of this encounter Plan of Treatment Not on file documented as of this encounter Visit Diagnoses Not on filedocumented in this encounter
--- OUTSIDE RECORDS SUMMARY | 2024-11-16 09:59 | XMS_ITS | Encounter Summary ---
Author Organization [facility] Healthcare Address [address] [place] [address] Care Team Providers Care Cash Application Representative Name Role Phone Clinic, Primary Care Medicine MD Primary Care Pr dominga Unavailable Reason for Visit * Diagnostic Imaging (Routine) - Closed Specialty Diagnoses / Procedures Referred By Contac t Referred To Contact Diagnoses Pain in left foot Procedures XR Foot Left 3+ Vw Anh Wilson, HYDROCHLORIC MANUFACTURING SUPERVISOR [address] [place] [address] Phone: tel: fax: [facility] Referral ID Status Reason Start Date Expiration Date Visits Re quested Visits Authorized [id number] Closed 05/23/2024 06/22/2025 1 1 Encounter Details Date Type Department Care Team (Latest Contact Info) Description 05/23/2024 2:35 PM CDT Ancillary Procedure [facility] Imaging at [address] [id number] Pain in left foot Social History Tobacco Use Types Packs/Day Years Used Date Smoking Tobacco: Never Alcohol Use Standard Drinks/Week Comments No 0 (1 standard drink = 0.6 oz pur e alcohol) Comments Unknown Sex and Gender Information Value Date Recorded Sex Assigned at Not on file 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 Gender Identity Not on file Sexual Orientation Not on file documented as of this encounter Plan of Treatment Not on file documented as of this encounter Procedures Procedure Name Priority Date/Time Associated Diagnosis Comments XR FOOT LEFT 3 OR MORE VIEWS Schedule ANN MARIE, Read ANN MARIE (Appt Today, Awaiting Results) 05/23/2024 2:45 PM CDT Pain in left foot documented in this encounter Results * XR Foot Left 3+ Vw (05/23/2024 2:45 PM CDT) Anatomical Region Laterality Modality Lower Extremities, Foot Left Digital Radiography 05/23/2024 5:12 PM CDT Narrative 05/23/2024 5:15 PM CDT EXAM DESCRIPTION: ?? XR FOOT LEFT 3 OR MORE VIEWS REASON FOR STUDY: ?? Pain in Foot, Left, 4th and 5th toe injury extending into foot ?? Pt complains of 5th digit pain after bending toes back x 4 days ago. ? COMPARISON: ?? None. FINDINGS: 3 ??views submitted for review. No acute fracture. ?? Joint alignments are maintained. ?? No soft tissue edema. IMPRESSION: -- IMPRESSION -- No acute osseous abnormality. ?? THIS IS AN ELECTRONICALLY VERIFIED FINAL REPORT 05/23/2024 5:15 PM - Electronically signed by ??Ace MORALES D: ??05/23/2024 5:15 PM T: Report ID: [id number] Reading Location: ??[id number] Procedure Note Ace Chino MD PhD - 05/23/2024 EXAM DESCRIPTION: XR FOOT LEFT 3 OR MORE VIEWS REASON FOR STUDY: Pain in Foot, Left, 4th and 5th toe injury extendinginto foot Pt complains of 5th digit pain after bending toes back x 4 days ago. COMPARISON: None. FINDINGS: 3 views submitted for review. No acute fracture. Joint alignments are maintained. No soft tissueedema. IMPRESSION: -- IMPRESSION -- No acute osseous abnormality. THIS IS AN ELECTRONICALLY VERIFIED FINAL REPORT 05/23/2024 5:15 PM - Electronically signed by Ace Chino M.D. WW T: Report ID: [id number] Reading Location: [id number] Anh Wilson HYDROCHLORIC MANUFACTURING SUPERVISOR IMG XR PROCEDURES Final Re sult documented in this encounter Visit Diagnoses Diagnosis Pain in left foot Pain in soft tissues of limb documented in this encounter Care Teams Cash Application Representative Relationship Specialty Start Date End Date Clinic, Primary Care Medicine, PCP - General 11/09/17 documented as of this encounter
--- OUTSIDE RECORDS SUMMARY | 2024-11-16 09:59 | XMS_ITS | Encounter Summary ---
Author Organization [facility] Healthcare Address [address] [place] [address] Care Team Providers Care Graphic Designer Name Role Phone Clinic, Primary Care Medicine MD Primary Care Pr ovider Unavailable Reason for Referral * Diagnostic Imaging (Routine) - Closed Specialty Diagnoses / Procedures Referred By Contac t Referred To Contact Diagnoses Pain in left foot Procedures XR Foot Left 3+ Vw Anh Wilson NP [address] [facility] [address] [place] [address] Phone: tel: fax: [facility] Referral ID Status Reason Start Date Expiration Date Visits Re quested Visits Authorized [id number] Closed 05/23/2024 06/22/2025 1 1 Reason for Visit * Reason Comments Toe Pain Pinky toe on her lef t foot, Tuesday, hurt her foot when she was getting into bed Encounter Details Date Type Department Care Team (Late st Contact Info) Description 05/23/2024 2:15 PM CDT Office Visit [facility] at [address] [phone] Anh Wilson NP [address] 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 I strive to provide you with EXCELLENT service. You may receive a survey after your visit today. If you cannot rate your experience as EXCELLENT, please let us know how we can improve and better meet your needs. Thank you for choosing [facility]! It was my pleasure to see you today, I hope you feel better soon! Anh Wilson GUM REMOVER Fractures (Broken Bones), Sprains, and Strains: Sprains and strains are injuries of ligaments, muscles, joints, or cartilage, while fractures are broken or cracked bones. All cause pain and swelling. Fractures and many sprains should be protected and immobilized (held steady in a wrap, brace, splint, or cast) until they heal. If an X-ray is obtained, a radiologist (X-ray specialist) will read this within 24 hours. Sometimes fractures are not seen on the first X-ray but can be seen on later X-rays. Most of the time, sprains and strains improve every day, while fractures take longer to improve. Home Care: 1. Rest the injured area and keep it elevated (above heart level) as much as possible. In bed, restyour arm or leg on pillows to keep it elevated. 2. Using cool packs on the first day might help to reduce swelling. 3. You might give acetaminophen (Tylenol) for pain. 4. Some recommend giving ibuprofen (Motrin, Advil), but this can cause increased bruising and bleeding in an injury. 5. If you have an elastic bandage, splint, or sling, adjust your bandage, splint, or sling if it becomes too tight or if it causes swelling. 6. Some ankle and foot injuries (such as ankle sprains), treated with an elastic bandage or removable ankle brace, heal better if you gently walk on the injured limb. However, for most fractures, with a rigid splint applied, we would prefer NO weight on the injured foot until approved by your doctor or specialist at follow-up. 7. Leave splint on until seen by ortho doctor, do not get wet. 8. No sports or vigorous activity should be performed until cleared by your doctor. See your doctor for a re-check visit tomorrow or as soon as possible if not better. Call your doctor or return to the emergency department if worse or: 1. Pain increases. 2. Numbness or tingling occurs. 3. Swelling increases. 4. Nail or skin color (pale, bluish, or deeper in color than the other side) changes. 5. No improvement is seen in 3 days. * Attachments The following attachments cannot be sent through Care Everywhere. * Contusion in Adults (AfterCare(R) Instructions(ER/ED)) (Kenyan) documented in this encounter Progress Notes * Anh Wilson NP - 05/23/2024 2:15 PM CDT Subjective/Objective Patient ID: Osman Aguilar is a 49 y.o. female. Chief Complaint Toe Pain (Pinky toe on her left foot, Tuesday, hurt her foot when she was getting into bed) 49 year old female patient presents today with complaints left little and fourth toe pain. Patient reports that she caught her foot on her bed 5 days ago. Reports she hyperextended her toes. Reports continued pain and swelling. Patient presents wearing her son's shoe. Denies any numbness or tingling. Toe Pain Review of Systems All other systems reviewed and are negative. Physical Exam Vitals reviewed. Constitutional: Appearance: Normal appearance. She is normal weight. HENT: Head: Normocephalic. Right Ear: External ear normal. Left Ear: External ear normal. Nose: Nose normal. Mouth/Throat: Mouth: Mucous membranes are moist. Eyes: Extraocular Movements: Extraocular movements intact. Cardiovascular: Rate and Rhythm: Normal rate. Pulses: Normal pulses. Pulmonary: Effort: Pulmonary effort is normal. Musculoskeletal: General: Swelling, tenderness and signs of injury present. No deformity. Cervical back: Normal range of motion. Comments: Patient has mild bruising to her 4th and 5th toes left foot with mild bruising into the MTP area, mild swelling. Patient is able to perform range of motion Skin: Capillary Refill: Capillary refill takes less than 2 seconds. Findings: Bruising present. Neurological: General: No focal deficit present. Mental Status: She is alert and oriented to person, place, and time. Mental status is at baseline. Psychiatric: Mood and Affect: Mood normal. Behavior: Behavior normal. Thought Content: Thought content normal. Judgment: Judgment normal. Vitals: 05/23/24 1407 BP: 130/91 Pulse: 83 Resp: 18 Temp: 36.9 ??C (98.4 ??F) TempSrc: Temporal SpO2: 99% Weight: 66.4 kg (146 lb 6.4 oz) Height: 172.7 cm (5' 7.99 ) No results found. Past Medical History: Diagnosis Date ??? HX OTHER MEDICAL Headache, migraine ??? HX OTHER MEDICAL vertigo Current Outpatient Medications: ??? amitriptyline (ELAVIL) 25 mg tablet, take 1 tablet by oral route every day at bedtime (Patient not taking: Reported on 05/23/2024), Disp: 30, Rfl: 5 ??? SUMAtriptan (IMITREX) 5 mg/actuation nasal spray, spray 1 spray by intranasal route once; if headache returns, dose may be repeated once after 2 hours, not to exceed 40 mg per day (Patient not taking: Reported on 05/23/2024), Disp: 9 spray, Rfl: 3 No Active Allergies Social History Tobacco Use ??? Smoking status: Never ??? Smokeless tobacco: None Substance and Sexual Activity ??? Drug use: None ??? Sexual activity: None Alcohol Use: Not on file No past surgical history on file. Procedures Assessment/Plan No results found for this or any previous visit (from the past 4 hour(s)). Diagnoses and all orders for this visit: Pain in left foot (Primary) - XR Foot Left 3+ Vw; Future - Post-Op Shoe LG Size 8-10 Female ([id number]) Plan: 1459- wet read by provider, no obvious fracture. We will place patient with eneida tape and postop shoe. Discussed with patient to ice, elevate, use Tylenol and Motrin as needed for pain. We will notify patient if radiologist read is different than providers. 1719- IMPRESSION: -- IMPRESSION -- No acute osseous abnormality. Disposition Treatment plan including expectations, follow up, and return precautions discussed with patient/parent, verbalizes understanding. Medication dosage, use, and potential adverse reactions discussed with patient/parent. Advised to follow up with PCP if symptoms do not resolve as expected or sooner if condition worsens. Signs/symptoms warranting ER evaluation reviewed. Patient and/or guardian was given an opportunity to ask questions, questions answered. Anh Wilson NP documented in this encounter Plan of Treatment Not on file documented as of this encounter Results * XR Foot Left [...] 5:15 PM - Electronically signed by ??Ace Chino M.D. WW D: ??05/23/2024 5:15 PM T: Report ID: [id number] Reading Location: ??[id number] Procedure Note Ace Chino MD PhD - [...] Ace Chino M.D. WW T: Report ID: [id number] Reading Location: [id number] Anh Wilson DIE CLEANER IMG XR PROCEDURES Final Re sult documented in this encounter Visit Diagnoses Diagnosis Pain in left foot- Primary Pain in soft tissues of limb Pain in left foot Pain in soft tissues of limb documented in this encounter Orders General Supply Count Last Ordered Date First Or dered Date POST-OP SHOE LG SIZE 8-10 FEMALE ([id number]) 1 05/23/2024 documented in this encounter Care Teams Graphic Designer Relationship Specialty Start Date End Date Clinic, Primary Care Medicine, PCP - General 11/09/17 documented as of this encounter
--- OUTSIDE RECORDS SUMMARY | 2024-11-16 09:59 | XMS_ITS | Clinical Summary ---
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 Gender Identity Not on file Sexual Orientation Not on file Plan of Treatment Health Maintenance Due Date Last Done Comments Hepatitis C Virus (HCV) Screening 1973 TdaP Immunization 1973 Hepatitis B Immunization (1 of 3 - 19+ 3-dose series) 1992 Pap Smear 1994 Cervical Cancer Screening (CCS) 2003 HPV/Cotest 2003 Colonoscopy 2018 Colorectal Cancer Screening 2018 Cologuard 2023 Immunochemical Fecal Occult Blood 2023 Mammogram 2023 Zoster Immunization (1 of 2) 2023 SARS-COV-2 Immunization (24 season) 2023 Influenza Immunization (Seas on Ended) 2024 Meningococcal Immunization (ACWY) Aged Out No longer eligible based on patient's age to complete this topic Pneumococcal Immunization Combined Aged Out No longer eligible based on patient's age to complete this topic Rotavirus Immunization Aged Out No lo nger eligible based on patient's age to complete this topic
--- OUTSIDE RECORDS SUMMARY | 2024-11-16 09:59 | XMS_ITS | Encounter Summary ---
Author Organization [facility] Healthcare Address [address] [place] [address] Care Team Providers Care Community Associate Name Role Phone Clinic, Primary Care Medicine MD Primary Care Pr ovider Unavailable Encounter Details Date Type Department Care Team (Latest Contact Info) Description 11/11/2017 7:22 AM SUPERVISOR FILTRATION - 11/11/2017 11:59 PM SUPERVISOR FILTRATION Hospital Encounter [facility] [phone] Booker Berry NP [phone] [id number] Discharge Disposition: Discharge to home or self care Social History Tobacco Use Types Packs/Day Years Used Date Smoking Tobacco: Never Alcohol Use Standard Drinks/Week Comments No 0 (1 standard drink = 0.6 oz pur e alcohol) Comments Unknown Sex and Gender Information Value Date Recorded Sex Assigned at Not on file Legal Sex Female 4:15 AM SUPERVISOR FILTRATION Gender Identity Not on file Sexual Orientation Not on file documented as of this encounter Medications at Time of Discharge amitriptyline (ELAVIL) 25 mg tablet take 1 tablet by oral route every day at bedtime 30 5 10/20/2016 SUMAtriptan (IMITREX) 5 mg/actuation nasal spray spray 1 spray by intranasal route once; if headache returns, dose may be repeated once after 2 hours, not to exceed 40 mg per day 9 spray 3 10/20/2016 documented as of this encounter Discharge Disposition Disposition Code Departure Means Destination Discharge to home or self care documented in this encounter Plan of Treatment Not on file documented as of this encounter Procedures Procedure Name Priority Date/Time Associated Diagnosis Comments MRI BRAIN W WO CONTRAST Routine 11/11/2017 2:37 PM SUPERVISOR FILTRATION POCT CREATININE FOR CONTRAST EVALUATION Routine Gen Lab 11/11/2017 7:39 AM SUPERVISOR FILTRATION documented in this encounter Results * MRI Brain W WO Contrast (11/11/2017 2:37 PM SUPERVISOR FILTRATION) Anatomical Region Laterality Modality Head and Neck N/A Magnetic Resonan ce 11/11/2017 2:37 PM SUPERVISOR FILTRATION Narrative 11/11/2017 6:20 PM SUPERVISOR FILTRATION GEN MARTINEZ M.D. TETO PARHAM M.D. FINAL REPORT The radiology attending physician has personally reviewed this study, and has reviewed and/or edited this written report and agrees with it. ACC# ??Date Time ??Exam [id number] Nov 11, 2017 08:37:00 [id number] MRI Brain wo& with contrast EXAMINATION: ??Magnetic resonance imaging (MRI) of the brain and brainstem without and with contrast HISTORY: Right sphenoid sinus lesion. ??Follow-up for stability. TECHNIQUE: Multiplanar multi-weighted MRI of the brain and brainstem was performed without and with intravenous contrast using the general brain protocol. Contrast information: 10 mL Dotarem COMPARISON: Comparison is made to prior brain MRI dated 07/26/2016. FINDINGS: There is a heterogeneous appearing lesion with hypointensity on T1 sequences and hyperintensity on T2 sequences with internal trabeculations seen within the right sphenoid bone which is unchanged since 2016, and demonstrates benign characteristics. The scalp and calvarium are normal. ?? The superior sagittal sinus demonstrates normal venous flow. ??The corpus callosum is normal in shape and signal intensity. ??The posterior fossa is unremarkable. The pituitary and sella are normal. ??The brainstem and craniocervical junction are unremarkable. Diffusion weighted images reveal no hyperintensities to suggest acute cerebral infarction. ??The susceptibility weighted sequences reveal no evidence of acute or chronic hemorrhage. ??The ventricles are normal in size and position without evidence of hydrocephalus . There are no areas of abnormal contrast enhancement. The visualized portions of the mastoids are unremarkable. ??The orbits appear normal. ??Normal flow voids are demonstrated in the carotid arteries and basilar artery. IMPRESSION: ??1. 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 Electronically signed by: Gen Martinez M.D. Requested By: Booker Berry ??ANP ? Dictated By: ?? TETO PARHAM M.D. ??on Nov 11 2017 10:37A This document has been electronically signed by: GEN MARTINEZ M.D. on Nov 11 2017 12:18P [id number] ROSARIO M.D. FINAL REPORT The radiology attending physician has personally reviewed this study, and has reviewed and/or edited this written report and agrees with it. Attending: ??KRISTI, ??BOOKER Requesting: ??Kristi, ??Booker Requesting Fax: ?? Attending Fax: ?? Attending ID: ??[id number] Requesting ID: ??[id number] Report To 1 ID: ??[id number] ? Report To 1 Name: ??, ?? Report To 1 FAX: ?? NextGen Order #: ?? Procedure Note Miscellaneous, Not In File - 11/11/2017 Seth ROSARIO M.D. FINAL REPORT The radiology attending physician has personally reviewed this study, and has reviewed and/or edited this written report and agrees with it. ACC# Date Time Exam [id number] Nov 11, 2017 08:37:00 [id number] MRI Brain wo& with contrast EXAMINATION: Magnetic resonance imaging (MRI) of the brain and brainstem without and with contrast HISTORY: Right sphenoid sinus lesion. Follow-up for stability. TECHNIQUE: Multiplanar multi-weighted MRI of the brain and brainstem was performed without and with intravenous contrast using the general brain protocol. Contrast information: 10 mL Dotarem COMPARISON: Comparison is made to prior brain MRI dated 07/26/2016. FINDINGS: There is a heterogeneous appearing lesion with hypointensity on T1 sequences and hyperintensity on T2 sequences with internal trabeculations seen within the right sphenoid bone which is unchanged since 2016, and demonstrates benign characteristics. The scalp and calvarium are normal. The superior sagittal sinus demonstrates normal venous flow. The corpus callosum is normal in shape and signal intensity. The posterior fossa is unremarkable. The pituitary and sella are normal. The brainstem and craniocervical junction are unremarkable. Diffusion weighted images reveal no hyperintensities to suggest acute cerebral infarction. The susceptibility weighted sequences reveal no evidence of acute or chronic hemorrhage. The ventricles are normal in size and position without evidence of hydrocephalus . There are no areas of abnormal contrast enhancement. The visualized portions of the mastoids are unremarkable. The orbits appear normal. Normal flow voids are demonstrated in the carotid arteries and basilar artery. IMPRESSION: 1. Stable, benign-appearing heterogeneous lesion in the right sphenoid bone which may be an intraosseous hemangioma or could be related to arrested pneumatization of the sphenoid. Electronically signed by: Gen Martinez M.D. Requested By: Booker Berry ANP Dictated By: TETO PARHAM M.D. on Nov 11 2017 10:37A This document has been electronically signed by: GEN MARTINEZ M.D. on Nov 11 2017 12:18P [id number] ROSARIO M.D. FINAL REPORT The radiology attending physician has personally reviewed this study, and has reviewed and/or edited this written report and agrees with it. Attending: BOOKER BERRY Requesting: Booker Berry Requesting Fax: Attending Fax: Attending ID: [id number] Requesting ID: [id number] Report To 1 ID: [id number] Report To 1 Name: , Report To 1 FAX: NextGen Order #: [id number] Berry SOLAR PHOTOVOL[employer] SYSTEMS ENGINEER IMG MRI PROCEDURES Final Resu lt * POCT creatinine (11/11/2017 7:39 AM SUPERVISOR FILTRATION) Creatinine POC 0.7 0.6 - 1.1 mg/dL [facility] Blood specimen (specimen) 11/11/2017 7:39 AM SUPERVISOR FILTRATION 11/11/2017 7:39 AM SUPERVISOR FILTRATION Narrative [facility] - 11/11/2017 7:51 AM SUPERVISOR FILTRATION Booker Berry NP POINT OF CARE TEST ORDERABLES Final Result LES [facility] [address] [facility] Department [place] [address] documented in this encounter Visit Diagnoses Not on filedocumented in this encounter Care Teams Community Associate Relationship Specialty Start Date End Date Clinic, Primary Care Medicine, PCP - General 11/09/17 documented as of this encounter
--- OUTSIDE RECORDS SUMMARY | 2024-11-16 09:59 | XMS_ITS | Referral Summary ---
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
--- OUTSIDE RECORDS SUMMARY | 2024-11-16 10:00 | XMS_ITS | Encounter Summary ---
Author Organization [facility] Facility Care Team Providers Care Nurse Researcher Name Role Phone Unavailable Primary Care Provider Unavailabl e Encounter Details Date Type Department Care Team (Late st Contact Info) Description 07/25/2016 11:23 PM CDT - 07/28/2016 7:09 PM CDT Hospital Encounter [facility] Maurice Hou MD [address] [place] [address] DR DEPT NEUROSURGERY, [place] [address] Gregor Mccarty MD PhD [address] [place], [place] [id number] Migraine without status migrainosus, not intractable; Anxiety disorder; Disorder of brain Social History Tobacco Use Types Packs/Day Years Used Date Smoking Tobacco: Never Assessed Comments Unknown Sex and Gender Information Value Date Recorded Sex Assigned at Not on file 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 Gender Identity Not on file Sexual Orientation Not on file documented as of this encounter Last Filed Vital Signs Vital Sign Reading Time Taken Comments Blood Pressure 125/67 07/28/2016 6:00 PM CDT Pulse 85 07/28/2016 6:00 PM CDT Temperature - - Respiratory Rate - - Oxygen Saturation 100% 07/28/2016 6:00 PM CDT Inhaled Oxygen Concentration - - Weight 64.9 kg (142 lb 15.9 oz) 07/26/2016 3:12 PM CDT Height 172.7 cm (5' 8 ) 07/26/2016 3:12 PM CDT Body Mass Index 21.74 07/26/2016 3:12 PM CDT documented in this encounter Consult Notes * Provider, MD Rika - 07/26/2016 12:00 AM CDT Patient: SENTHIL LYON Reg No: [id number] H #: [id number] Admit Dt.: 07/25/2016 : 1975 Room No: Attending: Roro LEE PhysicianMD Consulting: Krish Beasley M.D. Dictating: Joseph Hess M.D. Service Dt: 07/26/2016 CONSULTATION REPORT FACILITY: [facility] PHYSICIAN REQUESTING CONSULTATION: Emergency Department. REASON FOR CONSULTATION: Sphenoid lesion. BRIEF HISTORY: Ms. Senthil Lyon is a 41-year-old, right-handed lady with a history of migraine headaches who presents with several days of headaches and vertigo and ultimately found to have a sphenoid lesion. Ms. Lyon states that she initially experienced a bout of migraine headaches evening, approximately three days ago, that was very severe and caused her to vomit and as a result she presented to [facility]. There she was treated symptomatically with analgesics and antiemetics and returned home with improved symptoms. Later, the next night on Tuesday night her headache returned and was fairly severe. Over the next day she experienced problems with intermittent but severe headaches and also a sense of light-headedness as well as vertigo that felt like the world was spinning around her. Due to these persisting complaints, she returned to [facility] on Tuesday. There, a head computed tomography was done that showed a sphenoid lesion and she was subsequently transferred to [facility] for further management. She denies any episodes of loss of consciousness. She denies anteriorly further episodes of emesis. At this point, she is being evaluated at the bedside. She states her headache is largely resolved as is most of her light-headedness/vertigo, although she does feel somewhat light-headed. Again, it seems that she has had both light-headedness and vertigo concomitantly. She denies any vision change, denies any nasal discharge, denies any fever or chills. She denies any focal weakness but has had some generalized weakness. PAST MEDICAL HISTORY: Migraines. MEDICATIONS: Ibuprofen and naproxen as needed. ALLERGIES: No known drug allergies. FAMILY HISTORY: Family history significant for hypertension, diabetes, and heart disease. SOCIAL HISTORY: She denies any tobacco, alcohol, or drug use. She lives with her children. Her is currently living in [place]. Her 's name is Joaquín and he can be reached at [phone]. She works as a early childhood educator aide worker. REVIEW OF SYSTEMS: Review of systems significant as per History of Present Illness. PHYSICAL EXAMINATION: Neurologic: She opens eyes spontaneously, regards and follows commands. She is alert and oriented times three. Her pupils are equally round and reactive to light. Her extraocular muscles are intact. Her face is equal and her tongue is midline. She has no drift. She has 5/5 strength in her upper and lower extremities bilaterally. She has sensation intact to light touch times four. She has 2+ reflexes, no Alan's and no clonus noted. She is able to stand and take several steps without difficulty. LABORATORY AND X-RAY DATA: Imaging review - Review of the patient's head computed tomography without contrast from the outside hospital shows what appears to be a lytic somewhat expansile lesion in the medial region of the sphenoid. It appears somewhat lytic on . It measures 1.2 x 1.7 cm upon my review. There is no definite intracranial extension noted but evaluation is limited on this noncontrast head computed tomography scan. Laboratory review - 1. Her INR is 1.06, her PTT is 31. 2. Her urinalysis shows 3+ leukocyte esterase, negative nitrates. 3. Her white blood cell count is 5.2, her hemoglobin is 12.4, platelets 241. 4. Sodium is 140, creatinine 0.8. IMPRESSION: Ms. Senthil Lyon is a 41-year-old lady who presents with a headache, dizziness and vertigo and was found to have a sphenoid lesion. RECOMMENDATIONS: 1. Please obtain a magnetic resonance imaging of the brain with and without contrast, brain tumor protocol. Please make sure this extends to include the entire nasal cavity. 2. The results of this study will be reviewed with the Chief Resident and attending and final recommendations will be made pending the results of the study. Electronically Authenticated by: Krish Beasley MD On 07/27/2016 08:28 AM CDT Joseph Hess M.D. Krish Beasley M.D. JKG:sb #[id number] Editing MT: ADM TD: 07/26/2016 07:00 AM cc: Joseph Hess M.D. NotInFile CC Physician, MD Krish Beasley M.D. documented in this encounter Plan of Treatment Not on file documented as of this encounter Procedures Procedure Name Priority Date/Time Associated Diagnosis Comments DISCHARGE LABORATORY CUMULATIVE REPORT 07/28/2016 XR CONSULT OF OUTSIDE FILMS (PEDS ONLY) Routine 07/27/2016 6:02 AM CDT BLOOD CHECK SAMPLE Routine 07/27/2016 2: 30 AM CDT MISLABELED TEST Routine 07/26/2016 4:55 PM CDT URINALYSIS Routine 07/26/2016 4:33 PM CDT XR CHEST 1 VIEW Routine 07/26/2016 3:40 PM CDT BLOOD ABO, RH, INDIRECT AB SCREEN Routine 07/26/2016 2:50 PM CDT MRI BRAIN W WO CONTRAST Routine 07/26/20 16 6:05 AM CDT URINE CHORIONIC GONADOTROPIN (HCG) Routine 07/26/2016 3:21 AM CDT BLOOD HUMAN IMMUNODEFICIENCY VIRUS Routine 07/26/2016 2:54 AM CDT URINE MICROSCOPY Routine 07/26/2016 2:13 AM CDT SERUM TROPONIN I Routine 07/26/2016 2:13 AM CDT PLASMA PROTHROMBIN TIME (PT) Routine 07/26/2016 2:13 AM CDT PLASMA PARTIAL THROMBOPLASTIN TIME (PTT) Routine 07/26/2016 2:13 AM CDT PLASMA BASIC METABOLIC PANEL Routine 07/26/2016 2:13 AM CDT URINALYSIS Routine 07/26/2016 2:13 AM CDT BLOOD CELL COUNT (CBC) Routine 6 2:13 AM CDT BLOOD CELL MORPHOLOGIC EXAM Routine 07/26/2016 2:13 AM CDT ELECTROCARDIOGRAPHY (ECG) 07/26/2016 ELECTROCARDIOGRAPHY (ECG) 07/26/2016 documented in this encounter Results * DISCHARGE LABORATORY CUMULATIVE REPORT (07/28/2016) Narrative 07/28/2016 Ordered by an unspecified provider. us Historical Provider LAB BLOOD ORDERABLES Aurea l Result * XR Interpretation Of Outside Films (07/27/2016 6:02 AM CDT) Anatomical Region Laterality Modality N/A Radiographic Sangita ging 07/27/2016 6:02 AM CDT Narrative 07/27/2016 3:17 PM CDT SUDEEP FERNANDO M.D. DORI LEWIS M.D. FINAL REPORT The radiology attending physician has personally reviewed this study, and has reviewed and/or edited this written report and agrees with it. ACC# ??Date Time ??Exam [id number] Jul 27, 2016 06:02:00 [id number] [facility] Neuro Consult EXAMINATION: ?CHANGE CONSULT ON OUTSIDE IMAGES TO REFERENCE IMAGES IMPRESSION: ?This study was initially nominated as a consult on outside images via MEAGAN. However, a consult was not performed because a more recent examination has been performed. Accordingly, there will be no separate report of this study generated by a [facility] Radiologist. Requested By: Dictated By: ?? DORI LEWIS M.D. ??on Jul ??2015 11:54A This document has been electronically signed by: SUDEEP FERNANDO M.D. on Jul ??2015 ??3:17P [id number] Procedure Note Provider, Rika, - 03/25/2017 SUDEEP FERNANDO M.D. DORI LEWIS M.D. FINAL REPORT The radiology attending physician has personally reviewed this study, and has reviewed and/or edited this written report and agrees with it. ACC# Date Time Exam [id number] Jul 27, 2016 06:02:00 [id number] [facility] Neuro Consult EXAMINATION: CHANGE CONSULT ON OUTSIDE IMAGES TO REFERENCE IMAGES IMPRESSION: This study was initially nominated as a consult on outside images via MEAGAN. However, a consult was not performed because a more recent examination has been performed. Accordingly, there will be no separate report of this study generated by a [facility] Radiologist. Requested By: Dictated By: DORI LEWIS M.D. on Jul 27 2016 11:54A This document has been electronically signed by: SUDEEP FERNANDO M.D. on Jul 27 2016 3:17P [id number] us Historical Provider IMG XR PROCEDURES Final R esult * Blood check sample (07/27/2016 2:30 AM CDT) ABO, Rho(D) A Positive CDR HIS TORICAL RESULTS Blood specimen (specimen) 07/27/2016 2:30 AM CDT us Gregor Mccarty MD PhD LAB BLOOD ORDERABLES Fin al Result CDR HISTORICAL RESULTS * Mislabeled test (07/26/2016 4:55 PM CDT) Mislabeled specimen No Signature On Blood Bank Specimen Testing canceled CDR HISTORICAL RESULTS No specimen 07/26/2016 4:55 PM CDT Gregor Mccarty MD PhD LAB BLOOD ORDERABLES Fin al Result Performing Organization Address [facility] Co de Phone Number CDR HISTORICAL RESULTS * (ABNORMAL) Urinalysis (07/26/2016 4:33 PM CDT) Color, ur Yellow Yellow CDR HISTOR ICAL RESULTS Clarity, ur Cloudy(A) Clear CDR HIST ORICAL RESULTS Specific gravity, ur 1.018 1.003 - 1.030 CDR HISTORICAL RESULTS pH, ur 7.0 5.0 - 8.0 CDR HISTOR ICAL RESULTS Protein, ur Negative Trace CDR HIST ORICAL RESULTS Glucose, ur Negative Negative CDR HIST ORICAL RESULTS Ketones, ur Negative Negative CDR HIST ORICAL RESULTS Bilirubin, ur Negative Negative CDR HI STORICAL RESULTS U Blood Negative Negative CDR HISTOR ICAL RESULTS Urobilinogen, quant, ur <2.0 <2.0 mg/dl CDR HISTORICAL RESULTS Nitrites, ur Negative Negative CDR HIS TORICAL RESULTS Leukocyte esterase, ur 3+(A) Negative CDR HISTORICAL RESULTS Urine 07/26/2016 4:33 PM CDT Joseph Hess MD LAB BLOOD ORDERABLES Final Result Performing Organization Address [facility] de Phone Number CDR HISTORICAL RESULTS * XR Chest 1 Vw (07/26/2016 3:40 PM CDT) Anatomical Region Laterality Modality Body, Chest N/A Radiographic Sangita ging 07/26/2016 3:40 PM CDT Narrative 07/27/2016 10:48 AM CDT ALICIA SHAH M.D. PARAS PAGAN M.D. FINAL REPORT The radiology attending physician has personally reviewed this study, and has reviewed and/or edited this written report and agrees with it. ACC# ??Date Time ??Exam [id number] Jul 26, 2016 15:40:00 [id number] Chest 1 view Frontal EXAMINATION: ?? Chest 1 view Frontal IMPRESSION: ?? No prior images available for comparison. The lungs are clear. There is no focal consolidation, pulmonary edema or pleural effusion. No pneumothorax. Heart size and mediastinal contours are normal. Requested By: JOSEPH HESS M.D. Dictated By: ?? PARAS PAGAN M.D. ??on Jul?2015 ??8:50A This document has been electronically signed by: ALICIA SHAH M.D. on Jul ??2015 10:48A [id number] Procedure Note Provider, MD Rika - 03/25/2017 Seth MÉNDEZ M.D. FINAL REPORT The radiology attending physician has personally reviewed this study, and has reviewed and/or edited this written report and agrees with it. ACC# Date Time Exam [id number] Jul 26, 2016 15:40:00 [id number] Chest 1 view Frontal EXAMINATION: Chest 1 view Frontal IMPRESSION: No prior images available for comparison. The lungs are clear. There is no focal consolidation, pulmonary edema or pleural effusion. No pneumothorax. Heart size and mediastinal contours arenormal. Requested By: JOSEPH HESS M.D. Dictated By: PARAS PAGAN M.D. on Jul 27 2016 8:50A This document has been electronically signed by: ALICIA SHAH M.D. on Jul 27 2016 10:48A [id number] us Historical Provider IMG XR PROCEDURES Final R esult * Blood ABO, Rh, indirect ab screen (07/26/2016 2:50 PM CDT) ABO, Rho(D) A Positive CDR HIS TORICAL RESULTS Rafy, indirect Negative CDR HISTORICAL RESULTS Blood specimen (specimen) 07/26/2016 2:50 PM CDT Joseph Hess MD LAB BLOOD ORDERABLES Final Result CDR HISTORICAL RESULTS * MRI Brain W WO Contrast (07/26/2016 6:05 AM CDT) Anatomical Region Laterality Modality Head and Neck N/A Magnetic Resonan ce 07/26/2016 6:05 AM CDT Narrative 07/26/2016 10:16 AM CDT GAVIOTA BENNETT M.D. FINAL REPORT ACC# ??Date Time ??Exam [id number] Jul 26, 2016 06:05:00 [id number] MRI Brain wo&with contrast EXAMINATION: ?? 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 ??The patient presented with dizziness and vomiting for a few days. TECHNIQUE: Multiplanar multi-weighted MRI of the brain and brainstem was performed without and with intravenous contrast using the brain tumor protocol. This included high-resolution T1-weighted images with intravenous contrast and data for perfusion analysis. Contrast information: 12 mL Dotarem COMPARISON: ??Jul 25, 2016 CT [facility] FINDINGS: The central skull base lesion noted on computed tomography is predominately composed of fat. Following fat saturation (FLAIR and coronal postcontrast T1) most of the lesions signal drops out. ??A small component of the lesion on the right side near the cavernous sinus, which looks benign on CT, demonstrates high signal on T2 and enhancement after contrast. This lesion is most likely mucosal enhancement and trapped secretions in a partially aerated sphenoid sinus. There is no sign of extension beyond the sphenoid bone. Diffusion imaging of the lesion is negative. The ventricles and sulci are unremarkable. Shell-white differentiation is normal. There are no abnormal extra-axial fluid collections. There is no sign of intracranial hemorrhage. Diffusion imaging is normal. There is no abnormal enhancement intracranially. ??The visualized portions of the orbits and mastoid air cells are clear. IMPRESSION: ?? 1. Normal brain MRI 2. The central skull base lesion noted on the outside hospital CT is predominately composed of fat and mature bone. A small focus of T2 hyperintense and enhancement on the right side likely represents partially pneumatized sphenoid sinus with secretions and mucosal enhancement. The lesion is favored to be benign. This could be in the spectrum of an intraosseous lipoma or hemangioma. Followup imaging with CT or MRI could be obtained to document stability in the 3 to 6 month time range. Requested By: THEODORE ALVAREZ M.D. Dictated By: ?? GAVIOTA BENNETT M.D. ??on Jul 10:16A This document has been electronically signed by: GAVIOTA BENNETT M.D. on Jul ??2015 10:16A [id number] Procedure Note Provider, MD Rika - 03/25/2017 GAVIOTA BENNETT M.D. FINAL REPORT ACC# Date Time Exam [id number] Jul 26, 2016 06:05:00 [id number] MRI Brain wo&with contrast EXAMINATION: Magnetic resonance imaging (MRI) of the brain and brainstem without and with contrast HISTORY: Transferred from [facility] for a CT report of an indolent appearing, large mildly expansile mixed lytic/blastic bone lesion of the sphenoid centered at the midline with features this most likely benign in etiology. The patient presented with dizziness and vomiting for a few days. TECHNIQUE: Multiplanar multi-weighted MRI of the brain and brainstem was performed without and with intravenous contrast using the brain tumor protocol. This included high-resolution T1-weighted images with intravenous contrast and data for perfusion analysis. Contrast information: 12 mL Dotarem COMPARISON: Jul 25, 2016 CT [facility] FINDINGS: The central skull base lesion noted on computed tomography is predominately composed of fat. Following fat saturation (FLAIR and coronal postcontrast T1) most of the lesions signal drops out. A small component of the lesion on the right side near the cavernous sinus, which looks benign on CT, demonstrates high signal on T2 and enhancement after contrast. This lesion is most likely mucosal enhancement and trapped secretions in a partially aerated sphenoid sinus. There is no sign of extension beyond the sphenoid bone. Diffusion imaging of the lesion is negative. The ventricles and sulci are unremarkable. Shell-white differentiation is normal. There are no abnormal extra-axial fluid collections. There is no sign of intracranial hemorrhage. Diffusion imaging is normal. There is no abnormal enhancement intracranially. The visualized portions of the orbits and mastoid air cells are clear. IMPRESSION: 1. Normal brain MRI 2. The central skull base lesion noted on the outside hospital CT is predominately composed of fat and mature bone. A small focus of T2 hyperintense and enhancement on the right side likely represents partially pneumatized sphenoid sinus with secretions and mucosal enhancement. The lesion is favored to be benign. This could be in the spectrum of an intraosseous lipoma or hemangioma. Followup imaging with CT or MRI could be obtained to document stability in the 3 to 6 month time range. Requested By: THEODORE ALVAREZ M.D. Dictated By: GAVIOTA BENNETT M.D. on Jul 26 2016 10:16A This document has been electronically signed by: GAVIOTA BENNETT M.D. on Jul 26 2016 10:16A [id number] Historical Provider IMG MRI PROCEDURES Final Result * Urine chorionic gonadotropin (HCG) (07/26/2016 3:21 AM CDT) HCG, ur Negative CDR HISTOR ICAL RESULTS Urine 07/26/2016 3:21 AM CDT Theodore Alvarez MD LAB BLOOD ORDERABLES Aurea l Result Performing Organization Address [facility] Co de Phone Number CDR HISTORICAL RESULTS * Blood Human Immunodeficiency virus [HIV] rapid screen (07/26/2016 2:54 AM CDT) HIV ab Negative Negative CDR HISTOR ICAL RESULTS Blood specimen (specimen) 07/26/2016 2:54 AM CDT Thai Santamaria MD LAB BLOOD ORDERABLES Final Res ult Performing Organization Address [facility] Co de Phone Number CDR HISTORICAL RESULTS * (ABNORMAL) Urinalysis (07/26/2016 2:13 AM CDT) Color, ur Yellow Yellow CDR HISTOR ICAL RESULTS Clarity, ur Cloudy(A) Clear CDR HIST ORICAL RESULTS Specific gravity, ur 1.013 1.003 - 1.030 CDR HISTORICAL RESULTS pH, ur 6.0 5.0 - 8.0 CDR HISTOR ICAL RESULTS Protein, ur Negative Trace CDR HIST ORICAL RESULTS Glucose, ur Negative Negative CDR HIST ORICAL RESULTS Ketones, ur Negative Negative CDR HIST ORICAL RESULTS Bilirubin, ur Negative Negative CDR HI STORICAL RESULTS U Blood 1+(A) Negative CDR HISTOR ICAL RESULTS Urobilinogen, quant, ur <2.0 <2.0 mg/dl CDR HISTORICAL RESULTS Nitrites, ur Negative Negative CDR HIS TORICAL RESULTS Leukocyte esterase, ur 3+(A) Negative CDR HISTORICAL RESULTS Urine 07/26/2016 2:13 AM CDT us Theodore Alvarez MD LAB BLOOD ORDERABLES Aurea l Result Performing Organization Address [facility] de Phone Number CDR HISTORICAL RESULTS * (ABNORMAL) Urine microscopy (07/26/2016 2:13 AM CDT) RBC, ur 2 0 - 3 /hpf CDR HISTO RICAL RESULTS WBC, ur >50(H) 0 - 5 /hpf CDR HISTO RICAL RESULTS Bacteria, ur 1+ Trace CDR HIS TORICAL RESULTS Epithelial cells, renal, ur 0 0 - 0 /hpf CDR HISTORICAL RESULTS Epithelial cells, squamous, ur >20 /lpf CDR HISTORICAL RESULTS Mucus, ur Small /hpf CDR HISTOR ICAL RESULTS Urine 07/26/2016 2:13 AM CDT us Theodore Alvarez MD LAB BLOOD ORDERABLES Aurea l Result Performing Organization Address [facility] de Phone Number CDR HISTORICAL RESULTS * Plasma partial thromboplastin time (PTT) (07/26/2016 2:13 AM CDT) APTT 31.0 25.0 - 37.0 seconds CDR HISTORICAL RESULTS Comment: Interpretive Data Therapeutic heparin range:60.0 - 94.0 sec based on correlation with therapeutic heparin activity range of 0.3 -0.7 Units/mL. Current interpretive data was last revised on 2011. Plasma 07/26/2016 2:13 AM CDT us Theodore Alvarez MD LAB BLOOD ORDERABLES Aurea l Result Performing Organization Address [facility] de Phone Number CDR HISTORICAL RESULTS * Plasma basic metabolic panel (07/26/2016 2:13 AM CDT) Sodium 140 135 - 145 mmol/L CDR HISTORICAL RESULTS K, pl 3.9 3.3 - 4.9 mmol/L CDR HISTORICAL RESULTS Chloride 104 97 - 110 mmol/L CDR HISTORICAL RESULTS CO2 28 22 - 32 mmol/L CDR HISTORICAL RESULTS A. gap 8 2 - 15 mmol/L CDR HISTORICAL RESULTS Glucose 81 70 - 199 mg/dl CDR HISTORICAL RESULTS BUN 17 8 - 25 mg/dl CDR HISTORICAL RESULTS Creatinine 0.80 0.60 - 1.10 mg/dl CDR HISTORICAL RESULTS Calcium 9.2 8.5 - 10.3 mg/dl CDR HISTORICAL RESULTS Plasma 07/26/2016 2:13 AM CDT us Theodore Alvarez MD LAB BLOOD ORDERABLES Aurea l Result Performing Organization Address [facility] de Phone Number CDR HISTORICAL RESULTS * Serum troponin I (07/26/2016 2:13 AM CDT) Troponin I <0.03 0.00 - 0.03 ng/ml CDR HISTORICAL RESULTS Comment: Interpretive Data Serial determinations are recommended for the diagnosis of myocardial infarction (Third [place] Definition of Myocardial Infarction. ??J Am Claudine Cardiol 2012;60:1581-98). Current interpretive data was last revised on 13. Serum 07/26/2016 2:13 AM CDT us Theodore Alvarez MD LAB BLOOD ORDERABLES Aurea l Result Performing Organization Address [facility] de Phone Number CDR HISTORICAL RESULTS * Plasma prothrombin time (PT) (07/26/2016 2:13 AM CDT) Prothrombin time (PT) 12.1 9.2 - 14.0 seconds CDR HISTORICAL RESULTS INR 1.06 0.81 - 1.22 CDR HIST ORICAL RESULTS Comment: Interpretive Data Inpatient therapeutic ranges* Atrial fibrillation ?2.0-3.0 INR Venous thrombo-embolism ?2.0-3.0 INR Bioprosthetic heart valve ?* Mechanical heart valve, bileaflet or tilting disk,aortic position ? 2.0-3.0 INR All other,or bileaflet or tilting disk, in mitral position ? 2.5-3.5 INR *See the pharmacy resource directory (PHRED) for an updated copy of the Tool Book at [email or web address] Current Interpretive Data was last revised 2012. Plasma 07/26/2016 2:13 AM CDT Theodore Alvarez MD LAB BLOOD ORDERABLES Aurea l Result CDR HISTORICAL RESULTS * Blood cell count (CBC) (07/26/2016 2:13 AM CDT) WBC 5.2 3.8 - 9.9 K/cumm CDR HISTORICAL RESULTS RBC 4.17 3.90 - 5.20 M/cumm CDR HISTORICAL RESULTS Hgb 12.4 11.9 - 15.5 g/dl CDR HISTORICAL RESULTS Hct 38.3 35.6 - 45.5 % CDR HISTORICAL RESULTS MCV 91.8 81.3 - 96.4 fl CDR HISTORICAL RESULTS MCH 29.7 27.1 - 33.3 pg CDR HISTORICAL RESULTS MCHC 32.4 32.3 - 35.7 g/dl CDR HISTORICAL RESULTS Rdw 12.6 11.1 - 14.9 % CDR HISTORICAL RESULTS RDW 42.5 35.7 - 48.1 fl CDR HISTORICAL RESULTS Platelets 241 150 - 400 K/cumm CDR HISTORICAL RESULTS MPV 9.9 9.1 - 12.3 fl CDR HISTORICAL RESULTS NRBC 0.0 0.0 - 0.2 % CDR HIST ORICAL RESULTS NRBC, abs 0.00 0.00 - 0.01 K/cumm CDR HISTORICAL RESULTS Blood specimen (specimen) 07/26/2016 2:13 AM CDT Theodore Alvarez MD LAB BLOOD ORDERABLES Aurea l Result CDR HISTORICAL RESULTS * Blood cell morphologic exam (07/26/2016 2:13 AM CDT) Neutrophils 33.4 % CDR HIST ORICAL RESULTS Immature granulocytes 0.2 % CDR HISTORICAL RESULTS Lymphocytes 55.2 % CDR HIST ORICAL RESULTS Monos 6.9 % CDR HISTOR ICAL RESULTS Eosinophils 3.7 % CDR HIST ORICAL RESULTS Basophils 0.6 % CDR HISTOR ICAL RESULTS Neutrophils, abs 1.7 1.7 - 6.5 K/cumm CDR HISTORICAL RESULTS Immature granulocyte, abs 0.0 0.0 - 0.1 K/cumm CDR HISTORICAL RESULTS Lymphocytes, abs 2.9 0.8 - 3.3 K/cumm CDR HISTORICAL RESULTS Monocytes, absolute 0.4 0.2 - 0.8 K/cumm CDR HISTORICAL RESULTS Eosinophils, abs 0.2 0.0 - 0.5 K/cumm CDR HISTORICAL RESULTS Basophils, abs 0.0 0.0 - 0.1 K/cumm CDR HISTORICAL RESULTS Blood specimen (specimen) 07/26/2016 2:13 AM CDT Result [facility] Theodore Alvarez MD LAB BLOOD ORDERABLES Uarea l Result CDR HISTORICAL RESULTS * ELECTROCARDIOGRAPHY (ECG) (07/26/2016) Narrative 07/26/2016 Ordered by an unspecified provider. [facility] Provider ECG ORDERABLES Final Res ult * ELECTROCARDIOGRAPHY (ECG) (07/26/2016) Narrative 07/26/2016 Ordered by an unspecified provider. Historical Provider ECG ORDERABLES Final Res ult documented in this encounter Visit Diagnoses Diagnosis Migraine without status migrainosus, not intractable Anxiety disorder Anxiety state, unspecified Disorder of brain documented in this encounter
--- OUTSIDE RECORDS SUMMARY | 2024-11-16 10:00 | XMS_ITS | Encounter Summary ---
Author Organization [facility] Facility Care Team Providers Care Ged Tutor Name Role Phone Unavailable Primary Care Provider Unavailabl e Encounter Details Date Type Department Care Team (Latest Contact Info) Description 01/03/2009 - 01/03/2009 11:59 PM REGIONAL MAINTENANCE MANAGER Hospital Encounter [facility] Hugo Wright MD [address] [place] [id number] High-risk , elderly primigravida Social History Tobacco Use Types Packs/Day Years Used Date Smoking Tobacco: Never Assessed Comments Unknown Sex and Gender Information Value Date Recorded Sex Assigned at Not on file Legal Sex Female 4:15 AM REGIONAL MAINTENANCE MANAGER Gender Identity Not on file Sexual Orientation Not on file documented as of this encounter Plan of Treatment Not on file documented as of this encounter Visit Diagnoses Diagnosis High-risk , elderly primigravida documented in this encounter
--- OUTSIDE RECORDS SUMMARY | 2024-11-16 10:00 | XMS_ITS | Encounter Summary ---
Author Organization [facility] Facility Care Team Providers Care Animal Science Instructor Name Role Phone Dany Lenz DO Primary Care Provider Encounter Details Date Type Department Care Team (Late st Contact Info) Description 10/29/2016 12:54 PM REIMBURSEMENT REPRESENTATIVE - 10/29/2016 11:59 PM REIMBURSEMENT REPRESENTATIVE Hospital Encounter [facility] Maurice Hou MD [address] [place] [address] DR DEPT NEUROSURGERY, [place] [address] Neoplasm of brain (CMS/HCC) Social History Tobacco Use Types Packs/Day Years Used Date Smoking Tobacco: Never Alcohol Use Standard Drinks/Week Comments No 0 (1 standard drink = 0.6 oz pur e alcohol) Comments Unknown Sex and Gender Information Value Date Recorded Sex Assigned at Not on file Legal Sex Female 4:15 AM REIMBURSEMENT REPRESENTATIVE Gender Identity Not on file Sexual Orientation [...] 3 10/20/2016 documented as of this encounter Plan of Treatment Not on file documented as of this encounter Procedures Procedure Name Priority Date/Time Associated Diagnosis Comments MRI BRAIN W WO CONTRAST Routine 10/29/2016 2:23 PM REIMBURSEMENT REPRESENTATIVE BLOOD CREATININE, POINT OF CARE Routine 10/29/2016 1:28 PM REIMBURSEMENT REPRESENTATIVE documented in this encounter Results * MRI Brain W WO Contrast (10/29/2016 2:23 PM REIMBURSEMENT REPRESENTATIVE) Anatomical Region Laterality Modality Head and Neck N/A Magnetic Resonan ce 10/29/2016 2:23 PM REIMBURSEMENT REPRESENTATIVE Narrative 10/29/2016 3:53 PM REIMBURSEMENT REPRESENTATIVE SANJEEV MOREL M.D. PRADEEP CALVILLO M.D. FINAL REPORT The radiology attending physician has personally reviewed this study, and has reviewed and/or edited this written report and agrees with it. ACC# ??Date Time ??Exam [id number] Oct 29, 2016 14:23:00 [id number] MRI Brain wo&with contrast EXAMINATION: ?? Magnetic resonance imaging (MRI) of the brain and brainstem without and with contrast HISTORY: Skull base lesion. TECHNIQUE: Multiplanar multi-weighted MRI of the brain and brainstem was performed without and with intravenous contrast using the brain tumor protocol. This included high-resolution T1-weighted images with intravenous contrast and data for perfusion analysis. CONTRAST INFORMATION: 12 mL Dotarem COMPARISON: Brain MRI dated 07/26/2016. Correlation is made to CT of the head from 07/25/2016. FINDINGS: Unchanged appearance of the heterogeneous central skull base lesion predominately composed of fat is evident by high signal on T1 weighted imaging and decreased signal on the fat saturation imaging. small fluid filled right sphenoid sinus is unchanged. The overall size, extent and appearance of this lesion stable. 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 Pituitary gland is prominent but unchanged from the prior examination, this can be seen in the setting of menstruation. There is a subcentimeter tiny pineal gland cyst. The superior sagittal sinus demonstrates normal venous flow. The corpus callosum is normal in shape and signal intensity. The posterior fossa is unremarkable. The brainstem and craniocervical junction are unremarkable. Diffusion weighted images reveal no hyperintensities to suggest acute cerebral infarction. The ventricles are normal in size and position without evidence of hydrocephalus. The visualized portions of the mastoids are unremarkable. The orbits appear normal. Normal flow voids are demonstrated in the carotid arteries and basilar artery. 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 IMPRESSION: ?? 1. Unchanged arrested pneumatization of the sphenoid. Requested By: MAURICE BIGGS M.D. Dictated By: ?? PRADEEP CALVILLO M.D. ??on Oct ??2015 ??3:41P This document has been electronically signed by: SANJEEV MOREL M.D. on Oct ??2015 ??3:53P [id number] Procedure Note Provider, MD Rika - 03/29/2017 SANJEEV MOREL M.D. PRADEEP CALVILLO M.D. FINAL REPORT The radiology attending physician has personally reviewed this study, and has reviewed and/or edited this written report and agrees with it. ACC# Date Time Exam [id number] Oct 29, 2016 14:23:00 [id number] MRI Brain wo&with contrast EXAMINATION: Magnetic resonance imaging (MRI) of the brain and brainstem without and with contrast HISTORY: Skull base lesion. TECHNIQUE: Multiplanar multi-weighted MRI of the brain and brainstem was performed without and with intravenous contrast using the brain tumor protocol. This included high-resolution T1-weighted images with intravenous contrast and data for perfusion analysis. CONTRAST INFORMATION: 12 mL Dotarem COMPARISON: Brain MRI dated 07/26/2016. Correlation is made to CT of the head from 07/25/2016. FINDINGS: Unchanged appearance of the heterogeneous central skull base lesion predominately composed of fat is evident by high signal on T1 weighted imaging and decreased signal on the fat saturation imaging. small fluid filled right sphenoid sinus is unchanged. The overall size, extent and appearance of this lesion stable. 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 Pituitary gland is prominent but unchanged from the prior examination, this can be seen in the setting of menstruation. There is a subcentimeter tiny pineal gland cyst. The superior sagittal sinus demonstrates normal venous flow. The corpus callosum is normal in shape and signal intensity. The posterior fossa is unremarkable. The brainstem and craniocervical junction areunremarkable. Diffusion weighted images reveal no hyperintensities to suggest acute cerebral infarction. The ventricles are normal in size and position without evidence of hydrocephalus. The visualized portions of the mastoids are unremarkable. The orbits appear normal. Normal flow voids are demonstrated in the carotid arteries and basilar artery. 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 IMPRESSION: 1. Unchanged arrested pneumatization of the sphenoid. Requested By: MAURICE BIGGS M.D. Dictated By: PRADEEP CALVILLO M.D. on Oct 29 2016 3:41P This document has been electronically signed by: SANJEEV MOREL M.D. on Oct 29 2016 3:53P [id number] us Historical Provider IMG MRI PROCEDURES Final Result * Blood creatinine, point of care (10/29/2016 1:28 PM REIMBURSEMENT REPRESENTATIVE) Creatinine, POC, bld 0.6 0.6 - 1.1 mg/dl CDR HISTORICAL RESULTS Blood specimen (specimen) 10/29/2016 1:28 PM REIMBURSEMENT REPRESENTATIVE Maurice Biggs MD LAB BLOOD ORDERABLES Aurea l Result CDR HISTORICAL RESULTS documented in this encounter Visit Diagnoses Diagnosis Neoplasm of brain (HCC) Neoplasm of unspecified nature of brain documented in this encounter Care Teams Animal Science Instructor Relationship Specialty Start Date End Date Dany Lenz DO PCP - General 10/20/16 11/08/17 documented as of this encounter
--- OUTSIDE RECORDS SUMMARY | 2024-11-16 10:00 | XMS_ITS | Continuity of Care Document ---
Author Organization [facility] Address [address] [place] [address] [address] [place] [address] Phone Care Team Providers Care Ultrasound Tester Name Role Phone Jessica Cox Unavailable Unavailable Advance Directives Directive Yes / No Effective Date File Name No Information Encounters Encounter Description Practice Location Reason(s) For Visit Diagnoses Date Provider Providers Copied on Encounter Formerly [facility], [address], [place], [place], [id number], [place] tel:[phone] [facility] No Information [phone] Brooke Lopez. [address] , [address], [place], [address], [place]. tel:[phone] Family History Family Member Type Diagnosis Age At Onset No Information Payers Payer name Insurance type Covered green party ID Authoriza tion(s) Medicaid [facility] [id number] Social History Type Description Quantity Date Captured Comments Sex Female Smoking Status No Information Chief Complaint And Reason For Visit No Information Reason For Referral Reason For Referral No Information History Of Present Illness Encounter Date Complaint History Of Prese nt Illness No Information Functional Status Date Functional Assessmen t No Information Instructions Date Instruction Additional Infor mation No Information Assessments Type Assessment Date No Information Patient Care Teams Name Effective Dates (start - stop) Status Members No Information
--- OUTSIDE RECORDS SUMMARY | 2024-11-16 10:00 | XMS_ITS | Encounter Summary ---
Author Organization [facility] Care Team Providers Care Narrow Gauge Brakeman Name Role Phone Unavailable Primary Care Provider Unavailabl e Encounter Details Date Type Department Care Team (Late st Contact Info) Description 02/28/2009 - 02/28/2009 11:59 PM CDT Hospital Encounter [facility] Hugo Wright MD [address] [place] [address] [phone] Elderly primigravida, antepartum Social History Tobacco Use Types Packs/Day Years Used Date Smoking Tobacco: Never Assessed Comments Unknown Sex and Gender Information Value Date Recorded Sex Assigned at Not on file Legal Sex Female 4:15 AM FRENCH INSTRUCTOR Gender Identity Not on file Sexual Orientation Not on file documented as of this encounter Plan of Treatment Not on file documented as of this encounter Visit Diagnoses Diagnosis Elderly primigravida, antepartum documented in this encounter
== END 2024-11-07 13:53 | disposition home or self-care (01) ==
PROVIDERS: Family Medicine; Emergency Provider Physician Assistant
DX: R07.89 Other chest pain (principal); M94.0 Chondrocostal junction syndrome [Tietze]
CPT/HCPCS: 36415; 71046; 80053; 83690; 84484; 85025; 85380; 85610; 85730; 93005; 96374; 99284; A9270; J1885

== ENCOUNTER 2025-04-02 12:55 | Outpatient (CLI) | payer OTHER, SELFPAY ==
--- NOTE | ~2025-04-02 | XR_ITS ---
EXAMINATION: XR lg joint inject/asp w image DATE: 04/02/2025 13:51 INDICATION: Right hip osteoarthritis TECHNIQUE: A time-out was performed to verify the patient's name, date of , and procedure to b e performed. The procedure including the risks, benefits, and alternatives was discussed with the pat ient. Risks discussed included bleeding and infection. The patient understood the risks and agreed to proceed. The skin overlying the right hip joint was prepped and draped in usual sterile fashion. A nesthetic was administered with 1% lidocaine subcutaneously. A 22 G needle was advanced under fluoro scopic guidance into the joint. Injection of mL of Omnipaque 240 confirmed intra-articular position of the needle. Subsequently, injectate consisting of 5 mm a 4:1 mixture of 1% lidocaine: 40 mg/mL De po-Medrol for a total dosage of 40 mg Depo-Medrol was instilled. Washout of contrast was seen confirm ing intra-articular administration. The needle was removed and the entry site was cleaned and dressed . There were no immediate complications. Fluoroscopy exposure time was 0.1 minutes. The total number of images was 2. Total DAP was 0.7 Gycm^2. FINDINGS: Real-time fluoroscopy demonstrates the needle in the right hip joint. Patient's pain prior to procedure:7/10. Patient's pain following the procedure: 0/10. IMPRESSION: 1. Successful right hip joint injection of local anesthetic and steroid with decrease in the patient' s presenting pain. Reviewed, dictated and finalized at location A. IMPRESSION: 1. Successful right hip joint injection of local anesthetic and steroid with de crease in the patient's presenting pain.
--- OUTSIDE RECORDS SUMMARY | 2025-04-02 13:03 | XMS_ITS | Clinical Summary ---
Author Organization [facility] Care Team Providers Care Kilnman Name Role Phone Unavailable Primary Care Provider Unavailabl e Social History Tobacco Use Types Packs/Day Years Used Date Smoking Tobacco: Never Assessed Comments Unknown Sex and Gender Information Value Date Recorded Sex Assigned at Not on file Legal Sex Female 9:46 AM FRUIT FARMWORKER Gender Identity Not on file Sexual Orientation [...] Immunochemical Fecal Occult Blood 2023 Mammogram 2023 Pneumococcal Immunization (5 0+ years) (1 of 1 - PCV) 2023 Zoster Immunization (1 of 2) 2023 Influenza Immunization (#1) 2024 SARS-COV-2 Immunization ( - season) 2024 Respiratory Syncytial Virus (RSV) Immunization (Adult) (1 - 1-dose 75+ series) 2048 Meningococcal Immunization (ACWY) Aged Out No longer eligible based on patient's age to complete this topic Pneumococcal Immunization Combined Aged Out No longer eligible based on patient's age to complete this topic Rotavirus Immunization Aged Out No lo nger eligible based on patient's age to complete this topic
--- OUTSIDE RECORDS SUMMARY | 2025-04-02 13:03 | XMS_ITS | Clinical Summary ---
Author Organization [facility] Address [address] [place] [address] Care Team Providers Care Geography Teacher Name Role Phone Clinic, Primary Care Medicine MD Primary Care Pr ovider Unavailable Allergies No known active allergies Medications cholecalciferol (VITAMIN D-3) 2000 unit tablet Take 1 tablet (2,000 Units total) by mouth daily Active magnesium aspart,citrate,o xide (Triple Magnesium Complex) 400 mg magnesium capsule Take 400 mg by mouth daily Active Active Problems Problem Noted Date Diagnosed Date Chest pain 01/16/2025 Migraine without aura and responsive to treatmen t 10/20/2016 Overview (02/25/2017): Chronic migraine without aura without status migrainosus, not intractable Encounters Date Type Department Care Team Description 01/16/2025 9:00 AM AIR POLLUTION COMPLIANCE INSPECTOR Office Visit [facility] Cardiology at [address] [place] [address] Eliseo Wolfe MD Lipid screening (Primary Dx); Atypical chest pain 01/16/2025 Orders Only [facility] Cardiology [address] [facility] [address] [place] [address] Provider, MD Rika from Last 3 Months Medical History Medical History Date Comments Hx Other Medical Headache, migra ine Hx Other Medical vertigo Family History Medical History Relation Name Comments Diabetes type II Father Diabetes me llitus type 2; Hypertension Father Hypertension; Headache Mother Headaches; Relation Name Status Comments Father Mother Alive Social History Tobacco Use Types Packs/Day Years Used Date Smoking Tobacco: Never Passive Smoke Exposure: Never Smokeless Tobacco: Never Tobacco Cessation:Counseling Given: Not Answered Alcohol Use Standard Drinks/Week Comments No 0 (1 standard drink = 0.6 oz pur e alcohol) Comments Unknown Sex and Gender Information Value Date Recorded Sex Assigned at Not on file Legal Sex Female 4:15 AM AIR POLLUTION COMPLIANCE INSPECTOR Gender Identity Not on file Sexual Orientation Not on file Obstetrics History Last Filed Vital Signs Vital Sign Reading Time Taken Comments Blood Pressure 136/84 01/16/2025 9:07 AM AIR POLLUTION COMPLIANCE INSPECTOR Pulse 66 01/16/2025 9:07 AM AIR POLLUTION COMPLIANCE INSPECTOR Temperature 36.9 C (98.4 F) 05/23/2024 2:07 PM CDT Respiratory Rate 18 05/23/2024 2:07 PM CDT Oxygen Saturation 98% 01/16/2025 9:07 AM AIR POLLUTION COMPLIANCE INSPECTOR Inhaled Oxygen Concentration - - Weight 65.3 kg (144 lb) 01/16/2025 9:07 AM AIR POLLUTION COMPLIANCE INSPECTOR Height 172.7 cm (5' 8 ) 01/16/2025 9:07 AM AIR POLLUTION COMPLIANCE INSPECTOR Body Mass Index 21.9 01/16/2025 9:07 AM AIR POLLUTION COMPLIANCE INSPECTOR Plan of Treatment Health Maintenance Due Date Last Done Comments Cervical Cancer Screening 1973 Colon Cancer Screening-Colonoscopy 1973 Depression Screening 1973 Hepatitis C Screening 1973 Hepatitis B Screening 1991 Regular Well Visit/Exam 18-64 1991 Breast Cancer Screening-Mammogram 07/11/2021 07/11/2020, 07/11/2020, 03/26/2015 Zoster Vaccine (1 of 2) 2023 Covid-19 Vaccine (3 - 2023-2 5 season) 2024 02/11/2021, 01/20/2021 Influenza Vaccine (Season Ended) 2025 09/11/2015, 03/19/2015, 08/25/2012 DTaP/Tdap/Td Vaccine (3 - Td or Tdap) 08/05/2026 08/05/2016, 07/07/2009 Pneumococcal vaccine <65 Aged Out No longer eligible based on patient's age to complete this topic Procedures Procedure Name Priority Date/Time Associated Diagnosis Comments POCT LIPID PANEL Routine 01/16/2025 9:09 AM AIR POLLUTION COMPLIANCE INSPECTOR Lipid screening from Last 3 Months Results * POCT lipid panel (01/16/2025 9:09 AM AIR POLLUTION COMPLIANCE INSPECTOR) Cholesterol, POC 172 mg/dL HDL, POC 69 mg/dL Triglycerides, POC <45 mg/dL LDL Cholesterol POC 94 mg/dL Chol/HDL Ratio, POC 2.5 Non-HDL Cholesterol, POC 103 mg/dL Cholesterol Total, POC 172 mg/dL Capillary blood 01/16/2025 9 :09 AM AIR POLLUTION COMPLIANCE INSPECTOR [facility] Ara Wolfe MD POINT OF CARE TEST RAMANErnesto OZIEL Edited Result - Final from Last 3 Months Insurance [employer] [facility] Care Teams Geography Teacher Relationship Specialty Start Date End Date Clinic, Primary Care Medicine, PCP - General 11/09/17
--- OUTSIDE RECORDS SUMMARY | 2025-04-02 13:03 | XMS_ITS | Encounter Summary ---
Author Organization [facility] Address [address] [place] [address] Care Team Providers Care Die Maintenance Name Role Phone Clinic, Primary Care Medicine MD Primary Care Pr ovider Unavailable Encounter Details Date Type Department Care Team (Late st Contact Info) Description 11/07/2024 Orders Only [facility] Health Information Management [address] [place] [phone] Surjit Alicia MD 1 [facility] [place] [address] [place] [address] Social History Tobacco Use Types Packs/Day Years Used Date Smoking Tobacco: Never Alcohol Use Standard Drinks/Week Comments No 0 (1 standard drink = 0.6 oz pur e alcohol) Comments Unknown Sex and Gender Information Value Date Recorded Sex Assigned at Not on file Legal Sex Female 4:15 AM MARINE STEWARD Gender Identity Not on file Sexual Orientation Not on file documented as of this encounter Plan of Treatment Not on file documented as of this encounter Procedures Procedure Name Priority Date/Time Associated Diagnosis Comments SCAN - RADIOLOGY/IMAGING 11/07/2024 documented in this encounter Results * SCAN - RADIOLOGY/IMAGING (11/07/2024) Anatomical Region Laterality Modality Other Surjit Alicia MD Final Result documented in this encounter Visit Diagnoses Not on filedocumented in this encounter Care Teams Die Maintenance Relationship Specialty Start Date End Date Clinic, Primary Care Medicine, PCP - General 11/09/17 documented as of this encounter
--- OUTSIDE RECORDS SUMMARY | 2025-04-02 13:03 | XMS_ITS | Clinical Summary ---
Author Organization [facility] Address [facility] [place] [address] Care Team Providers Care Fitness And Wellness Manager Name Role Phone Fernanda Berrios MD Primary Care Provider + Allergies No known active allergies Medications Cholecalciferol (VITAMIN D) 50 MCG (1999) Tab Take 1 tablet by mouth daily. Active Magnesium 400 MG Cap Take 400 mg by mouth daily. Active Active Problems Problem Noted Date Diagnosed Date Colon cancer screening 09/20/2022 Overview (09/20/2022): Added automatically from request for surgery [id number] Myofascial pain 09/05/2020 Family History Medical History [...] Comments Blood Pressure 120/86 10/11/2022 2:36 PM SOUND PERSON Pulse 92 10/11/2022 2:36 PM SOUND PERSON Temperature 37.2 C (98.9 F) 10/11/2022 2:36 PM SOUND PERSON Respiratory Rate 18 10/04/2022 11:50 AM SOUND PERSON Oxygen Saturation 100% 10/11/2022 2:36 PM SOUND PERSON Inhaled Oxygen Concentration - - Weight 64.9 kg (143 lb) 10/11/2022 2:36 PM SOUND PERSON Height 172.7 cm (5' 8 ) 10/11/2022 2:36 PM SOUND PERSON Body Mass Index 21.74 10/11/2022 2:36 PM SOUND PERSON Plan of Treatment Health Maintenance Due Date [...] th HPV 2003 Mammogram Screening 07/11/2022 07/11/2020 Pneumococcal Vaccine: 50+ Years (1 of 1 - PCV) 2023 Zoster Vaccines (1 of 2) 2023 COVID-19 Vaccine (3 - 2023-2 5 season) 2024 02/11/2021, 01/20/2021 Colorectal Cancer Screening Colonoscopy (10 Years) 10/04/2032 10/04/2022, 10/04/2022 Meningococcal B Vaccine Aged Out No l onger eligible based on patient's age to complete this topic Meningococcal Vaccine Aged Out No tangela liseth eligible based on patient's age to complete this topic RSV Immunizations Under 20 Months Aged Out No longer eligible b ased on patient's age to complete this topic Procedures Procedure Name Priority Date/Time Associated Diagnosis Comments COLONOSCOPY Routine 10/04/2022 10:05 AM SOUND PERSON MG SCREENING W SYBIL JONATHAN DIGI Routine [...] since 06/13/2019. Recommendation: 1: Routine screening mammogram Bilateral in 1 Year Assessment: ACR BI-RADS Category 2 - Benign. Narrative 07/11/2020 10:33 AM CDT Examination: Digital screening mammogram with CAD. Clinical history: Asymptomatic patient presents for routine screening. Comparison: 06/13/2019. Technique: Bilateral digital mammograms. The exam was interpreted with the use of a computer-aided detection (CAD) system. Additional 3-D tomosynthesis images were acquired. Tissue density: The breast tissue is heterogeneously dense. Findings: The breast tissue is heterogeneously dense. The dense tissue may obscure some lesions mammographically. Benign-appearing calcification noted. No suspicious mass, microcalcification or area of architectural distortion can be identified. From a mammographic standpoint, routine followup in one year would seem adequate. us Fernanda Berrios MD MAMMO Final Re sult from Last 3 Months or Most Recently Relevant to Health Maintenance Insurance Care Teams Fitness And Wellness Manager Relationship Specialty Start Date End Date Fernanda Berrios MD [address] [facility] [address] [place] [address] PCP - General FAMILY PRACTICE 06/10/20
--- OUTSIDE RECORDS SUMMARY | 2025-04-02 13:03 | XMS_ITS | Referral Summary ---
Author Organization [facility] Address [address] [address] Care Team Providers Care Adjunct Instructor Name Role Phone Clinic, Primary Care Medicine MD Primary Care Pr ovider Unavailable Encounters Date Type Department Care Team Description 01/16/2025 Orders Only [facility] [address] [place] [id number] ProviderRika MD 01/16/2025 9:00 AM HOT DIP PLATER Office Visit [facility]iology at [address] [place] [id number] Eliseo Wolfe MD Lipid screening (Primary Dx); Atypical chest pain from Last 3 Months Allergies No known active allergies Medications cholecalciferol [...] on file Legal Sex Female 4:15 AM HOT DIP PLATER Gender Identity Not on file Sexual Orientation Not on file Last Filed Vital Signs Vital Sign Reading Time Taken Comments Blood Pressure 136/84 01/16/2025 9:07 AM HOT DIP PLATER Pulse 66 01/16/2025 9:07 AM HOT DIP PLATER Temperature 36.9 C (98.4 F) 05/23/2024 2:07 PM CDT Respiratory Rate 18 05/23/2024 2:07 PM CDT Oxygen Saturation 98% 01/16/2025 9:07 AM HOT DIP PLATER Inhaled Oxygen Concentration - - Weight 65.3 kg (144 lb) 01/16/2025 9:07 AM HOT DIP PLATER Height 172.7 cm (5' 8 ) 01/16/2025 9:07 AM HOT DIP PLATER Body Mass Index 21.9 01/16/2025 9:07 AM HOT DIP PLATER Plan of Treatment Not on file Procedures Procedure Name Priority Date/Time Associated Diagnosis Comments POCT LIPID PANEL Routine 01/16/2025 9:09 AM HOT DIP PLATER Lipid screening from Last 3 Months Results * POCT lipid panel (01/16/2025 9:09 AM HOT DIP PLATER) Cholesterol, POC 172 mg/dL HDL, POC 69 mg/dL Triglycerides, POC <45 mg/dL LDL Cholesterol POC 94 mg/dL Chol/HDL Ratio, POC 2.5 Non-HDL Cholesterol, POC 103 mg/dL Cholesterol Total, POC 172 mg/dL Capillary blood 01/16/2025 9 :09 AM HOT DIP PLATER [facility] Ara Wolfe MD POINT OF CARE TEST OCHOA LUDWIG Edited Result - Final from Last 3 Months Insurance [facility] [employer] Care Teams Adjunct Instructor Relationship Specialty Start Date End Date Clinic, Primary Care Medicine, PCP - General 11/09/17
--- OUTSIDE RECORDS SUMMARY | 2025-04-02 13:03 | XMS_ITS | Continuity of Care Document ---
Author Organization [facility] Address [address] [place] [address] [address] [place] [address] Phone Care Team Providers Care Body Joiner Name Role Phone Jessica Cox Unavailable Unavailable Advance Directives Directive Yes / No Effective Date File Name No Information Encounters Encounter Description Practice Location Reason(s) For Visit Diagnoses Date Provider Providers Copied on Encounter [facility], [address], [place], [place], [id number], [place] tel:[phone] [facility] No Information 9-[address] 0 Brooke Lopez. [address] , [address], [place], [address], [place]. tel:[phone] Family History Family Member Type Diagnosis Age At Onset No Information Payers Payer name Insurance type Covered alliance party ID Authoriza tion(s) Medicaid [employer] [id number] Social History Type Description Quantity Date Captured [...]
== END 2025-04-02 12:56 | disposition home or self-care (01) ==
DX: M16.11 Unilateral primary osteoarthritis, right hip (principal)
CPT/HCPCS: 20610; 77002; J1010; J2003